=== PATIENT | male | born 1995 | race Caucasian/White ===

== ENCOUNTER 2016-08-13 13:36 | Observation (INO) | payer OTHER ==
[~2016-08-13] VITALS: Ht 170.2 cm; Wt 74.0 kg
[~2016-08-13 13:36] MED LIST: BISM262T3 PO
[2016-08-13] MEDS ORDERED: SODIUM CHLORIDE 0.9% 1000ML 1,000 ML IV STA ×3 (14:23→15:52)
[2016-08-13] MEDS ORDERED: PROCHLORPERAZINE 5 MG/ML 2 ML VIAL IV STA (14:34)
[2016-08-13] MEDS ORDERED: HYDROmorphone INJ 0.5 MG/0.5 ML SYR IV STA ×2 (14:34→21:32)
[2016-08-13] MEDS ORDERED: DiphenhydrAMINE HCL 50 MG/ML VIAL IV STA (14:34)
--- NOTE | 2016-08-13 14:35 | EMERGENCY ROOM VISIT NOTE ---
History Report prepared by Nazanin: Lewis High Under the Supervision of: Dr. Ricardo Gorman M.D. First contact with patient: 14:17 Chief Complaint: ILLNESS Stated Complaint: UPPER L QUAD PAIN,DIZZY History of Present Illness The patient is a 20 year old male who presents to the Emergency Room with complaints of worsening left upper quadrant abdominal pain beginning one day prior to arrival. He currently rates his discomfort as an 8/10 in severity. The patient associates dizziness with today's symptoms. He states the pain began last night around 8:30 PM and worsened this morning, when he was helping his father around the house. The patient notes he applied heat to his abdomen last night without relief. He states he has a history of a liver transplant as a child, and has experienced similar symptoms in the past with previous liver flare ups. The patient notes he saw Ajit Guerrero (Gastroenterology) two weeks ago, as a follow up appointment after being admitted two weeks prior for liver issues. He states his liver enzymes were a little elevated, and he had an ultrasound performed that revealed his hepatic artery or vein was not working properly or may be inflamed. The patient notes he also follows up with a back tufter for his hemoglobin. He states he has had a UTI this past month, and recently had his Garay removed three days ago. The patient notes he had a severe flare up two years ago, in which, he experienced jaundice and other symptoms. He states he has not missed any doses of his medication. Pt denies LOC , headache, fevers, chills, diaphoresis, visual changes, neck pain, chest pain, breathing difficulties, nausea, vomiting, back pain, melena, hematochezia, urinary symptoms, numbness, weakness, leg swelling, increased bruising, lymphadenopathy, rash, or other complaints. 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 Review of Systems See HPI for pertinent positives and negatives. A total of ten systems were reviewed and were otherwise negative. Past Medical & Surgical Medical Problems: (1) Acute liver failure (2) ADHD (attention deficit hyperactivity disorder) (3) Depression (4) GERD (gastroesophageal reflux disease) (5) History of biliary atresia (6) Liver Transplant Status (7) Polycythemia (8) Situs Inversus (9) Situs Inversus Surgical Problems: (1) Liver Transplant Status Family History No pertinent family history Social History Smoking Status: Former Smoker Alcohol Use: none Drug Use: none Marital Status: single Housing Status: lives with family Occupation Status: employed, student Current/Historical Medications Scheduled Clonazepam (Klonopin), 1 MG PO BID Hyoscyamine Sulfate (Levsin), 0.125 MG PO TID Tacrolimus (Prograf), 1 MG PO BID Scheduled PRN Amphetamine-Dextroamphetamine 30MG (Adderall 30MG), 30 MG PO DAILY PRN for Focus Bismuth Subsalicylate (Pepto Bismol Chew Tab), 1 TAB PO TID PRN for GI Upset Dicyclomine Hcl (Dicyclomine Hcl), 10 MG PO QID PRN for Abdominal Pain/Cramping Ibuprofen Tab (Advil), 200 MG PO UD PRN for Pain or Fever Triamcinolone Acet (Aristocort 0.1%), 1 APPLN TOP BID PRN for Itching Allergies Coded Allergies: Penicillins (Verified Allergy, Unknown, ., 07/28/16) Midazolam (Verified Adverse Reaction, Intermediate, "PARANOIA", 07/28/16) Acetaminophen (Unverified Adverse Reaction, Unknown, "AFFECTS MY LIVER", 07/28/16) Physical Exam Vital Signs Date Time Temp Pulse Resp B/P Pulse Ox O2 Delivery O2 Flow Rate FiO2 08/13/16 22:28 Room Air 08/13/16 21:15 83 18 112/63 96 Room Air 08/13/16 19:15 81 122/79 79 131/86 77 114/79 08/13/16 17:36 82 16 08/13/16 17:34 131/88 08/13/16 16:06 84 18 94 08/13/16 15:56 103 18 120/75 120 123/83 136 98/61 08/13/16 15:54 98/61 08/13/16 15:53 123/83 08/13/16 15:52 120/75 08/13/16 15:36 105 23 94 08/13/16 15:31 108 08/13/16 15:27 95 Room Air 08/13/16 15:12 134 18 129/82 95 Room Air 08/13/16 15:10 129/82 08/13/16 13:40 36.8 116 16 159/95 97 Room Air Physical Exam GENERAL: Awake, alert, well-appearing, in no distress HENT: Normocephalic, atraumatic. Oropharynx unremarkable. EYES: Normal conjunctiva. Sclera non-icteric. NECK: Supple. No nuchal rigidity. FROM. No JVD. RESPIRATORY: Clear to auscultation. CARDIAC: Regular rate, normal rhythm. Extremities warm and well perfused. Pulses equal. ABDOMEN: Soft, non-distended. Left upper quadrant tenderness to palpation. No rebound or guarding. No masses. RECTAL: Deferred. MUSCULOSKELETAL: Chest examination reveals no tenderness. The back is symmetrical on inspection without obvious abnormality. There is no CVA tenderness to palpation. No joint edema. LOWER EXTREMITIES: Calves are equal size bilaterally and non-tender. No edema. No discoloration. NEURO: Normal sensorium. No sensory or motor deficits noted. SKIN: No rash or jaundice noted. Medical Decision & Procedures ER Provider Diagnostic Interpretation: X ray results as stated below per my interpretation and radiologist interpretation. Other radiology results as stated below per my review and radiologist interpretation CHEST ONE VIEW PORTABLE CLINICAL HISTORY: Weakness COMPARISON STUDY: 07/28/2016 FINDINGS: There is dextrocardia. The gastric air bubble appears right-sided. There is a right-sided aortic arch. There is no focal pulmonary consolidation. There is no failure. There are no pleural effusions.[ IMPRESSION: Sinus inversus. No active disease in the chest. Electronically signed by: Rogerio Hughes M.D. 08/13/2016 2:54 PM DUPLEX PORTAL HEPATIC VEINS CLINICAL HISTORY: Situs inversus. History of arterial and venous stenosis. Left upper quadrant pain. Liver transplant COMPARISON STUDY: Hepatic ultrasound dated 07/26/2016 FINDINGS: The portal and hepatic veins are patent. There is normal directional flow. The splenic vein appears patent. There are no findings to indicate hepatic artery stenosis. IMPRESSION: 1. The portal and hepatic veins are patent with normal directional flow 2. No evidence of hepatic artery occlusion. Electronically signed by: Rogerio Hughes M.D. 08/13/2016 4:[address] ABD/PELVIS IV AND ORAL CONT CLINICAL HISTORY: Upper quadrant abdominal pain. Stasis. Elevated white count. History of liver transplant. COMPARISON STUDY: 07/23/2016 TECHNIQUE: Following the IV administration of 116 mL of Optiray-320, CT scan of the abdomen and pelvis was performed from the lung bases to the proximal femurs. Images are reviewed in the axial, sagittal, and coronal planes. IV contrast was administered without complication. CT DOSE: 301.42 mGy.cm FINDINGS: Lower chest: The heart is normal in size and configuration, without pericardial effusion. The lung bases and pleural spaces are clear. Liver: The liver is a left sided. There is situs inversus. No focal masses are visualized. There is trace pneumobilia. The hepatic veins appear patent. 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 Gallbladder: Not visualized Spleen: There are 2 right-sided spleens. No splenic masses are visualized Pancreas: No pancreatic masses are visualized. Adrenal glands: Unremarkable. Kidneys: There is symmetric renal cortical enhancement. The kidneys are normal in size without hydronephrosis. Bowel: There are no transition zones indicate bowel obstruction. There is no evidence of acute diverticulitis. There are no findings to indicate acute appendicitis. Peritoneum: There is no intraperitoneal free air or abdominal ascites. Vasculature: The abdominal aorta is normal in course and caliber. 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 Adenopathy: None. Pelvic viscera: The bladder, and pelvic viscera are unremarkable. Skeletal structures: No destructive osseous lesions are seen. 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 IMPRESSION: 1. Situs inversus 2. Stable appearance of the transplanted liver 3. No acute findings within the abdomen or pelvis Electronically signed by: Rogerio Hughes M.D. 08/13/2016 8:36 PM Laboratory Results 08/13/16 14:57 Red Blood Count 6.61, Mean Corpuscular Volume 80.2, Mean Corpuscular Hemoglobin 29.7, Mean Corpuscular Hemoglobin Concent 37.0, Mean Platelet Volume 10.3, Neutrophils (%) (Auto) 79.9, Lymphocytes (%) (Auto) 12.8, Monocytes (%) (Auto) 6.6, Eosinophils (%) (Auto) 0.4, Basophils (%) (Auto) 0.2, Neutrophils # (Auto) 10.74, Lymphocytes # (Auto) 1.72, Monocytes # (Auto) 0.89, Eosinophils # (Auto) 0.05, Basophils # (Auto) 0.03 08/13/16 14:57 Test 12/31/16 14:57 08/13/16 15:09 08/13/16 17:19 08/13/16 22:30 White Blood Count 13.45 K/uL (4.8-10.8) Red Blood Count 6.61 M/uL (4.7-6.1) Hemoglobin 19.6 g/dL (14.0-18.0) Hematocrit 53.0 % (42-52) Mean Corpuscular Volume 80.2 fL (80-100) Mean Corpuscular Hemoglobin 29.7 pg (25-34) Mean Corpuscular Hemoglobin Concent 37.0 g/dl (32-36) Platelet Count 213 K/uL (130-400) Mean Platelet Volume 10.3 fL (7.4-10.4) Neutrophils (%) (Auto) 79.9 % Lymphocytes (%) (Auto) 12.8 % Monocytes (%) (Auto) 6.6 % Eosinophils (%) (Auto) 0.4 % Basophils (%) (Auto) 0.2 % Neutrophils # (Auto) 10.74 K/uL (1.4-6.5) Lymphocytes # (Auto) 1.72 K/uL (1.2-3.4) Monocytes # (Auto) 0.89 K/uL (0.11-0.59) Eosinophils # (Auto) 0.05 K/uL (0-0.5) Basophils # (Auto) 0.03 K/uL (0-0.2) RDW Standard Deviation 38.4 fL (36.4-46.3) RDW Coefficient of Variation 13.4 % (11.5-14.5) Immature Granulocyte % (Auto) 0.1 % Immature Granulocyte # (Auto) 0.02 K/uL (0.00-0.02) Erythrocyte Sedimentation Rate 2 mm/hr (0-14) Prothrombin Time 11.0 SECONDS (9.0-12.0) Prothromb Time International Ratio 1.0 (0.9-1.1) Activated Partial Thromboplast Time 22.8 SECONDS (21.0-31.0) Partial Thromboplastin Ratio 0.9 Anion Gap 10.0 mmol/L (3-11) Est Creatinine Clear Calc Drug Dose 98.5 ml/min Estimated GFR () 109.9 Estimated GFR (Non- 94.8 BUN/Creatinine Ratio 13.1 (10-20) Calcium Level 9.3 mg/dl (8.5-10.1) Magnesium Level 1.9 mg/dl (1.8-2.4) Total Bilirubin 1.0 mg/dl (0.2-1) Direct Bilirubin 0.2 mg/dl (0-0.2) Aspartate Amino Transf (AST/SGOT) 27 U/L (15-37) Alanine Aminotransferase (ALT/SGPT) 41 U/L (12-78) Alkaline Phosphatase 104 U/L (45-117) C-Reactive Protein < 0.29 mg/dl (0-0.29) Total Protein 7.5 gm/dl (6.4-8.2) Albumin 4.5 gm/dl (3.4-5.0) Lipase 120 U/L (73-393) Thyroid Stimulating Hormone (TSH) 0.525 uIu/ml (0.300-4.500) Urine Color YELLOW Urine Appearance CLEAR (CLEAR) Urine pH 6.5 (4.5-7.5) Urine Specific [place] 1.001 (1.000-1.030) Urine Protein NEG (NEG) Urine Glucose (UA) NEG (NEG) Urine Ketones NEG (NEG) Urine Occult Blood NEG (NEG) Urine Nitrite NEG (NEG) Urine Bilirubin NEG (NEG) Urine Urobilinogen NEG (NEG) Urine Leukocyte Esterase NEG (NEG) Laboratory results reviewed by me Medications Administered Medications (Trade) Dose Ordered Sig/Timi Route Start Time Stop Time Status Last Admin Dose Admin Sodium Chloride 1,000 ml @ 125 mls/hr Q8H STAT IV 08/13/16 14:23 08/13/16 22:22 DC 08/13/16 14:23 125 MLS/HR Sodium Chloride (Nss 1000ml) 1,000 ml @ 999 mls/hr Q1H1M STAT IV 08/13/16 14:23 08/13/16 15:23 DC 08/13/16 14:23 999 MLS/HR Hydromorphone HCl (Dilaudid Inj) 0.5 mg NOW STAT IV 08/13/16 14:34 08/13/16 14:36 DC 08/13/16 15:08 0.5 MG Prochlorperazine Edisylate (Compazine Inj) 10 mg NOW STAT IV 08/13/16 14:34 08/13/16 14:36 DC 08/13/16 15:06 10 MG Diphenhydramine HCl 12.5 mg 12.5 mg NOW STAT IV 08/13/16 14:34 08/13/16 14:36 DC 08/13/16 15:06 12.5 MG Sodium Chloride (Nss 1000ml) 1,000 ml @ 999 mls/hr Q1H1M STAT IV 08/13/16 15:52 08/13/16 16:52 DC 08/13/16 15:00 999 MLS/HR Hydromorphone HCl 0.5 mg 0.5 mg NOW STAT IV 08/13/16 21:32 08/13/16 21:36 DC 08/13/16 22:34 0.5 MG Daptomycin 500 mg/ Sodium Chloride 60 ml @ 100 mls/hr NOW STAT IV 08/13/16 21:32 08/13/16 22:07 DC 08/13/16 22:35 100 MLS/HR Aztreonam/Dextrose (Azactam IV/D5 100ml) 110 ml @ 100 mls/hr NOW STAT IV 08/13/16 21:32 08/13/16 22:37 DC 08/13/16 22:35 100 MLS/HR ED Course 1419: The patient was evaluated in room C6. A complete history and physical exam was performed. 1423: Ordered Sodium Chloride 1,000 ml @ 999 mls/hr IV, Sodium Chloride 1,000 ml @ 125 mls/hr IV. 1434: Ordered Benadryl Inj 12.5 mg IV, Compazine Inj 10 mg IV, Dilaudid Inj 0.5 mg IV. 1543: I spoke to ZAIRE Gardner (Radiology) about the patient's case, and he recommends starting the imaging with an ultrasound. 1552: Ordered Sodium Chloride 1,000 ml @ 999 mls/hr IV. 1708: Reevaluated the patient at this time, and he is still experiencing some dizziness. He requested for additional pain medication. 7: I reviewed the imaging report with ZAIRE Gardner (Radiology). It is unchanged from prior. 2122: I spoke to Cralos Ji (Hepatology) about the patient's case, and he would like to rule out infection and sepsis so a culture and antibiotics is recommended. He agreed with Daptomycin and Aztreonam because of his penicillin allergy. He states there is nothing they would do differently right now, because his liver tests look excellent. He recommends admission here unless the hospitalist has issues with it. 2131: Ordered Aztreonam 2,000 mg/Dextrose 110 ml @ 100 mls/hr IV, Daptomycin 500 mg/Sodium Chloride 60 ml @ 100 mls/hr IV, Dilaudid Inj 0.5 mg IV. 2149: Reevaluated the patient at this time, and he is in agreement with the treatment plan. 2152: I spoke to Ajit Cao (Hospitalist) about the patient's case, and he will follow the patient for further evaluation. Medical Decision Triage Nursing notes reviewed. The patient's presentation and history were concerning for abdominal pain, dizziness and a history of liver transplant with him and his impression Etiologies such as transplant failure, metabolic, infection, hypo/hyperglycemia , electrolyte abnormalities, cardiac sources, intracerebral event, toxicologic, neurologic, as well as others were entertained. The patient was evaluated. He was tachycardic. He is given a dose of IV Dilaudid, Compazine, and Benadryl for symptom control. He was hydrated with 2 L normal saline. The patient was orthostatic. He had elevated white count of 13.4. His hemoglobin was slightly elevated as well. Coags, urinalysis, chest x -ray, LFTs, lipase, chemistries and TSH were otherwise unremarkable. The patient underwent ultrasound imaging which did not reveal any arterial or venous issues. CT imaging was performed due to the concerns for possible infection. This was unchanged. I did discuss both imaging findings with radiology. I consulted with hepatology at [facility]. It was recommended to cover him for possible sepsis due to his immunosuppression and have him admitted for observation to the hospital. Since his liver testing seems to be normal transfer was not recommended. I discussed initiation of broad-spectrum antibiotics with daptomycin aztreonam and hepatology agreed. CMV titers and blood cultures were ordered. Consultation was made with the [facility] hospitalist and the patient was evaluated for further management. The chart was completed utilizing [employer] voice recognition software. Grammatical errors, random word insertions, pronoun errors, and incomplete sentences are an occasional consequence of this system due to software limitations, ambient noise, and hardware issues. Any formal questions or concerns about the content, text, or information contained within the body of this dictation should be directly addressed to the physician for clarification. Consults Time Called: 2044 Consulting Physician: ZAIRE Gardner (Radiology) Returned Call: 2046: I spoke to ZAIRE Gardner (Radiology) about the patient's case, and he recommends starting the imaging with an ultrasound. 2046: I reviewed the imaging report with ZAIRE Gardner (Radiology). It is unchanged from prior. Additional Consults: Time Called: 2055 Consulted Physician: Carlos Ji (Hepatology) Returned Call: 2122 Additional Comments: I spoke to Carlos Ji (Hepatology) about the patient's case, and he would like to rule out infection and sepsis so a culture and antibiotics is recommended. He agreed with Daptomycin and Aztreonam because of his penicillin allergy. He states there is nothing they would do differently right now, because his liver tests look excellent. He recommends admission here unless the hospitalist has issues with it. Time Called: 2151 Consulted Physician: Ajit Cao (Hospitalist) Returned Call: 2152 Additional Comments: I spoke to Ajit Cao (Hospitalist) about the patient's case, and he will follow the patient for further evaluation. Impression Primary Impression: Leukocytosis Additional Impressions: Orthostasis, LUQ abdominal pain, Immunosuppression Scribe Attestation The scribe's documentation has been prepared under my direction and personally reviewed by me in its entirety. I confirm that the note above accurately reflects all work, treatment, procedures, and medical decision making performed by me. Departure Information Dispostion Being Evaluated By Hospitalist (Ajit Cao (Hospitalist)) Referrals Kerry Ferguson M.D. (PCP)
--- NOTE | 2016-08-13 14:56 | DIAGNOSTIC IMAGING REPORT ---
CHEST ONE VIEW PORTABLE CLINICAL HISTORY: Weakness COMPARISON STUDY: 07/28/2016 FINDINGS: There is dextrocardia. The gastric air bubble appears right-sided. There is a right-sided aortic arch. There is no focal pulmonary consolidation. There is no failure. There are no pleural effusions.[ IMPRESSION: Sinus inversus. No active disease in the chest. Electronically signed by: Rogerio Hughes M.D. 08/13/2016 2:54 PM
[2016-08-13 15:16] LABS: BASO % 0.2 %; BASO ABS # 0.03 K/uL (0-0.2); COMPLETE YES; EOS % 0.4 %; IG% 0.1 %; LYMPH % 12.8 %; LYMPH ABS # 1.72 K/uL (1.2-3.4); MEAN CELL VOLUME 80.2 fL (80-100); MEAN CORPUSCULAR HEMOGLOBIN 29.7 pg (25-34); MEAN PLATELET VOLUME 10.3 fL (7.4-10.4); MONO % 6.6 %; NEUT % 79.9 %; PLATELET COUNT 213 K/uL (130-400); RED BLOOD COUNT 6.61 M/uL (4.7-6.1); WHITE BLOOD COUNT 13.45 K/uL (4.8-10.8)
[2016-08-13 15:26] LABS: PARTIAL THROMBOPLASTIN RATIO 0.9
[2016-08-13 15:27] LABS: URINE APPEARANCE CLEAR (CLEAR); URINE BILIRUBIN NEG (NEG); URINE COLOR YELLOW; URINE NITRITE NEG (NEG); URINE PH 6.5 (4.5-7.5); URINE SPECIFIC GRAVITY 1.001 (1.000-1.030); UROBILINOGEN NEG (NEG)
[2016-08-13 15:28] LABS: MANUAL MICROSCOPIC REQUIRED? NO; REVIEW REQ? NO
[2016-08-13 15:33] LABS: ALT/SGPT 41 U/L (12-78); BLOOD UREA NITROGEN 14 mg/dl (7-18); BUN/CREATININE RATIO 13.1 (10-20); CALCIUM 9.3 mg/dl (8.5-10.1); CARBON DIOXIDE 26 mmol/L (21-32); CHLORIDE 106 mmol/L (98-107); GLUCOSE 92 mg/dl (70-99); MAGNESIUM 1.9 mg/dl (1.8-2.4); POTASSIUM 3.6 mmol/L (3.5-5.1); SODIUM 142 mmol/L (136-145)
[2016-08-13 15:42] LABS: ALKALINE PHOSPHATASE 104 U/L (45-117); AST/SGOT 27 U/L (15-37); C-REACTIVE PROTEIN < 0.29 mg/dl (0-0.29); THYROID STIMULATING HORMONE 0.525 uIu/ml (0.300-4.500)
--- NOTE | 2016-08-13 16:59 | DIAGNOSTIC IMAGING REPORT ---
DUPLEX PORTAL HEPATIC VEINS CLINICAL HISTORY: Situs inversus. History of arterial and venous stenosis. Left upper quadrant pain. Liver transplant COMPARISON STUDY: Hepatic ultrasound dated 07/26/2016 FINDINGS: The portal and hepatic veins are patent. There is normal directional flow. The splenic vein appears patent. There are no findings to indicate hepatic artery stenosis. IMPRESSION: 1. The portal and hepatic veins are patent with normal directional flow 2. No evidence of hepatic artery occlusion. Electronically signed by: Rogerio Hughes M.D. 08/13/2016 4:57 PM
[2016-08-13] MEDS ORDERED: OPTIRAY 320 IV PRN (19:30)
--- NOTE | 2016-08-13 20:38 | DIAGNOSTIC IMAGING REPORT ---
CT ABD/PELVIS IV AND ORAL CONT CLINICAL HISTORY: Upper quadrant abdominal pain. Stasis. Elevated white count. History of liver transplant. COMPARISON STUDY: 07/23/2016 TECHNIQUE: Following the IV administration of 116 mL of Optiray-320, CT scan of the abdomen and pelvis was performed from the lung bases to the proximal femurs. Images are reviewed in the axial, sagittal, and coronal planes. IV contrast was administered without complication. CT DOSE: 301.42 mGy.cm FINDINGS: Lower chest: The heart is normal in size and configuration, without pericardial effusion. The lung bases and pleural spaces are clear. Liver: The liver is a left sided. There is situs inversus. No focal masses are visualized. There is trace pneumobilia. The hepatic veins appear patent. 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 Gallbladder: Not visualized Spleen: There are 2 right-sided spleens. No splenic masses are visualized Pancreas: No pancreatic masses are visualized. Adrenal glands: Unremarkable. Kidneys: There is symmetric renal cortical enhancement. The kidneys are normal in size without hydronephrosis. Bowel: There are no transition zones indicate bowel obstruction. There is no evidence of acute diverticulitis. There are no findings to indicate acute appendicitis. Peritoneum: There is no intraperitoneal free air or abdominal ascites. Vasculature: The abdominal aorta is normal in course and caliber. 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 Adenopathy: None. Pelvic viscera: The bladder, and pelvic viscera are unremarkable. Skeletal structures: No destructive osseous lesions are seen. 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 IMPRESSION: 1. Situs inversus 2. Stable appearance of the transplanted liver 3. No acute findings within the abdomen or pelvis Electronically signed by: Rogerio Hughes M.D. 08/13/2016 8:36 PM
[2016-08-13] MEDS ORDERED: AZTREONAM IV 2,000 MG in DEXTROSE 5% 100ML 100 ML IV STA (21:32)
[2016-08-13] MEDS ORDERED: DAPTOmycin IV 500 MG in SODIUM CHLORIDE 0.9% 50ML 50 ML IV STA (21:32)
[2016-08-13 22:28] VITALS: Ht 170.2 cm; Wt 74.0 kg
[2016-08-13] MEDS ORDERED: HYOSCYAMINE SULFATE 0.125 MG SL TAB PO ONE (23:21)
[2016-08-13] MEDS ORDERED: CLONAZEPAM 1 MG TAB PO ONE (23:21)
[2016-08-13] MEDS ORDERED: TACROLIMUS 1 MG CAP PO ONE (23:21)
[2016-08-13 23:25] VITALS: O2SAT 98
[2016-08-13] MEDS ORDERED: DICYCLOMINE HCL 10 MG CAP PO PRN (23:30)
[2016-08-13] MEDS ORDERED: IBUPROFEN 200 MG TAB PO PRN (23:30)
[2016-08-13] MEDS ORDERED: IV FLUIDS COMPLETED PRN (23:30)
[2016-08-13] MEDS ORDERED: LACTATED RINGER'S 1000ML 1,000 ML IV ONE (23:30)
[2016-08-13] MEDS ORDERED: TRAMADOL HCL 50 MG TAB PO PRN (23:30)
[2016-08-13] MEDS ORDERED: BISMUTH SUBSALICYLATE 262 MG CHEW PO PRN (23:30)
[2016-08-13] MEDS ORDERED: ONDANSETRON INJ 2 MG/ML 2 ML VIAL IV PRN (23:30)
[2016-08-13 23:46] LABS: BASO % 0.2 %; BASO ABS # 0.02 K/uL (0-0.2); COMPLETE YES; HEMATOCRIT 46.1 % (42-52); IG% 0.2 %; LYMPH % 28.8 %; LYMPH ABS # 2.48 K/uL (1.2-3.4); MEAN CELL VOLUME 80.6 fL (80-100); MEAN CORPUSCULAR HEMOGLOBIN 29.9 pg (25-34); MEAN CORPUSCULAR HGB CONC 37.1 g/dl (32-36); MEAN PLATELET VOLUME 9.7 fL (7.4-10.4); MONO % 8.5 %; NEUT % 60.3 %; PLATELET COUNT 144 K/uL (130-400); RED BLOOD COUNT 5.72 M/uL (4.7-6.1); WHITE BLOOD COUNT 8.62 K/uL (4.8-10.8)
[2016-08-14 00:08] LABS: BUN/CREATININE RATIO 10.4 (10-20); CALCIUM 8.4 mg/dl (8.5-10.1); CREATININE 1.1 mg/dl (0.60-1.40); POTASSIUM 3.4 mmol/L (3.5-5.1)
[2016-08-14] MEDS: KETOROLAC TROMETHAMINE 30 MG/ML VIAL IV PRN ×2 (00:38→07:58)
[2016-08-14 07:31] VITALS: BP 110/73; PULSE 75; TEMP 36.7; O2SAT 97
[2016-08-14] MEDS: HYOSCYAMINE SULFATE 0.125 MG SL TAB PO SCH ×2 (07:57→13:34)
[2016-08-14] MEDS ORDERED: TACROLIMUS 1 MG CAP PO SCH (08:00)
[2016-08-14] MEDS ORDERED: CLONAZEPAM 1 MG TAB PO SCH (08:00)
--- NOTE | 2016-08-14 09:15 | HISTORY & PHYSICAL EXAMINATION ---
DATE OF ADMISSION: 08/13/2016 PRIMARY CARE PHYSICIAN: Dr. Ferguson. CHIEF COMPLAINT: Left upper quadrant pain. Hx obtained from px and records. 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 Patient has had chronic left side abdominal pain since rejection episode from 2 years ago. Pain is worse with exertion. Px thinks pain may be related to "blood vessel problems" in his left sided liver. His local clinical informatics director had deferred eval of this issue to [facility] Hepatology. Recent confinement at [facility] last about 2 weeks ago for urinary retention/UTI, Garay catheter subsequently removed outpatient as per px. Px also evaluated during recent confinement by GI hepatology for chronic L abd pain. Concern for narcotic seeking tendencies w/ multiple trips to the ED at [facility] despite multiple imaging studies being negative. Px seems to think that only narcotics will help his pain as per note. In the last few days, patient had worsening of achy chronic left upper quadrant pain. No nausea, no vomiting, no abnormal bowel movements. no fever, no chills. Patient seen at the Emergency Room. Noted to be orthostatic initially. Fluid bolus given in the ER. Given daptomycin and Azactam for possible sepsis after consultation with [facility] java development team lead, Dr. Ingram as per ER MD. MEDICAL HISTORY: As above. SURGERIES: Liver transplant, skin biopsy. HOME MEDICATIONS: Adderall, Pepto, Klonopin, dicyclomine, Levsin, Advil, Aristocort, Prograf. ALLERGIES: TYLENOL, PENICILLIN. Midazolam FAMILY HISTORY: Could not obtain as the patient is adopted. PERSONAL AND SOCIAL HISTORY: Past tobacco abuse. 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 REVIEW OF SYSTEMS: As per HPI, all other ROS negative PHYSICAL EXAMINATION: VITAL SIGNS: Blood pressure was noted to be 159/98, later 116, later 84, pulse rate 80, RR 16, temperature 36.8, sats 96 on room air. Orthostatic initially abnormal, later negative after IVF. GENERAL: Noted to be slightly anxious, no respiratory distress. SKIN : normal color HEENT: [place] palpebral conjunctivae. Dry mucosa. NECK: No JVD. Supple. CHEST: Clear to auscultation. ABDOMEN: subcostal incisional scar, exquisite left upper quadrant tenderness. EXTREMITIES: No edema. No tenderness. NEUROLOGIC: No gross focality. LABS: Hemoglobin was noted to be 19.6, white cell count is 13, platelets 213. Sodium 140, K 3.8 creatinine 1.1, glucose 100. LFTs normal. CT abdomen and pelvis essentially normal. UA normal ASSESSMENT: 1. Acute on chronic L abdominal pain history of biliary atresia secondary to cirrhosis status post liver transplantation poss narcotic seeking behavior as per records. ro sepsis 2. orthostasis, mild clinical dehydration 3. hx situs inversus 4. past tobacco abuse PLAN: Observation GMF judicious narcotic use. IVF ff CS, hold off on additional antibiotics for now. (No overt bacterial source of sepsis) Home in 24 hours if patient comfortable and afebrile DVT prophylaxis, SCDs. Full code. MTDD
--- NOTE | 2016-08-14 13:49 | Discharge Instructions ---
Discharge Instructions Admission Reason for Admission: Abdominal Pain Discharge Discharge Diagnosis / Problem: ABDOMINAL PAIN Discharge Goals Goal(s): Improve disease control, Diagnostic testing Activity Recommendations Activity Limitations: resume your previous activity . Instructions / Follow-Up Instructions / Follow-Up HOSPITAL FOLLOW UP WITH DR LYNCH IN A WEEK , OFFICE WILL CALL WITH APPOINTMENT Current Hospital Diet Patient's current hospital diet: Regular Diet Discharge Diet Recommended Diet: Clear Liquid Diet Pending Studies Studies pending at discharge: no Medical Emergencies . Who to Call and When: Medical Emergencies: If at any time you feel your situation is an emergency, please call 911 immediately. . Non-Emergent Contact Non-Emergency issues call your: Primary Care Provider . . "Provider Documentation" section prepared by Tara Gonzales. VTE Core Measure Inpt VTE Proph given/why not?: Hector Emmanuel, SCD's
[2016-08-14 14:20] VITALS: BP 110/73; PULSE 75; TEMP 36.7; O2SAT 97
--- NOTE | 2016-08-14 20:57 | Discharge Summary ---
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 Situs inversus 2. Stable appearance of the transplanted liver 3. No acute findings within the abdomen or pelvis IMPRESSION: 1. The portal and hepatic veins are patent with normal directional flow 2. No evidence of hepatic artery occlusion. Medication Reconciliation Continued Medications: Amphetamine-Dextroamphetamine 30MG (Adderall 30MG) 1 Tab Tab 30 MG PO DAILY PRN for Focus, TAB Bismuth Subsalicylate (Pepto Bismol Chew Tab) 262 Mg Tab 1 TAB PO TID PRN for GI Upset, TAB Clonazepam (Klonopin) 1 Mg Tab 1 MG PO BID, TAB Dicyclomine Hcl (Dicyclomine Hcl) 10 Mg Cap 10 MG PO QID PRN for Abdominal Pain/Cramping Hyoscyamine Sulfate (Levsin) 0.125 Mg Tab 0.125 MG PO TID, #90 Ibuprofen Tab (Advil) 200 Mg Tab 200 MG PO UD PRN for Pain or Fever, TAB TAKE PER PACKAGE DIRECTIONS Tacrolimus (Prograf) 1 Mg Cap 1 MG PO BID, CAP Triamcinolone Acet (Aristocort 0.1%) 90 Appln/30 Gm Cr 1 APPLN TOP BID PRN for Itching APPLY TOPICALLY TO AFFECTED AREA DIRECTED Admission Information HPI (per Admitting provider): DATE OF ADMISSION: 08/13/2016 PRIMARY CARE PHYSICIAN: Dr. Ferguson. CHIEF COMPLAINT: Left upper quadrant pain. Hx obtained from px and records. 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 Patient has had chronic left side abdominal pain since rejection episode from 2 years ago. Pain is worse with exertion. Px thinks pain may be related to "blood vessel problems" in his left sided liver. 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 Recent confinement at [facility] last about 2 weeks ago for urinary retention/UTI, Garay catheter subsequently removed outpatient as per px. Px also evaluated during recent confinement by GI hepatology for chronic L abd pain. Concern for narcotic seeking tendencies w/ multiple trips to the ED at [facility] despite multiple imaging studies being negative. Px seems to think that only narcotics will help his pain as per note. In the last few days, patient had worsening of achy chronic left upper quadrant pain. No nausea, no vomiting, no abnormal bowel movements. no fever, no chills. Patient seen at the Emergency Room. Noted to be orthostatic initially. Fluid bolus given in the ER. Given daptomycin and Azactam for possible sepsis after consultation with [facility] dredge deckhand, Dr. Ingram as per ER MD. MEDICAL HISTORY: As above. SURGERIES: Liver transplant, skin biopsy. HOME MEDICATIONS: Adderall, Pepto, Klonopin, dicyclomine, Levsin, Advil, Aristocort, Prograf. ALLERGIES: TYLENOL, PENICILLIN. Midazolam FAMILY HISTORY: Could not obtain as the patient is adopted. PERSONAL AND SOCIAL HISTORY: Past tobacco abuse. 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 Physical Exam (per Admitting): REVIEW OF SYSTEMS: As per HPI, all other ROS negative PHYSICAL EXAMINATION: VITAL SIGNS: Blood pressure was noted to be 159/98, later 116, later 84, pulse rate 80, RR 16, temperature 36.8, sats 96 on room air. Orthostatic initially abnormal, later negative after IVF. GENERAL: Noted to be slightly anxious, no respiratory distress. SKIN : normal color HEENT: [place] palpebral conjunctivae. Dry mucosa. NECK: No JVD. Supple. CHEST: Clear to auscultation. ABDOMEN: subcostal incisional scar, exquisite left upper quadrant tenderness. EXTREMITIES: No edema. No tenderness. NEUROLOGIC: No gross focality. 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 gall bladder USG -was unremarkable P/E: GENERAL: young male, no sign of distress SKIN : normal color HEENT: [place] palpebral conjunctivae. sclera non icteric, PERRLA/EOMI , moist oral mucosa NECK: No JVD. Supple.no thyromegaly , trachea midline CHEST: Clear to auscultation., no wheeze or rales ABDOMEN: subcostal incisional scar, non tender , soft , normal bowel sound . EXTREMITIES: No edema. No tenderness. NEUROLOGIC: No gross focality. Acute on chronic L abdominal pain symptom has resolved no pain or discomfort no nausea , tolerating diet well history of biliary atresia secondary to cirrhosis status post liver transplantation CT abdomen /Pelvis /Liver USG -un remarkable stable to be discharge home will be followed with Family physician in a week DEHYDRATION ; resolved with IV hydration labs -wnl no evidence of infection tolerating diet well back to baseline FULL CODE DVT PROPHYLAXIS: Low risk SCD and teds ambulate DISPOSITION: discharge home today Discharge Instructions DI: Medical v4 Discharge Instructions Admission Reason for Admission: Abdominal Pain Discharge Discharge Diagnosis / Problem: ABDOMINAL PAIN Discharge Goals Goal(s): Improve disease control, Diagnostic testing Activity Recommendations Activity Limitations: resume your previous activity . Instructions / Follow-Up Instructions / Follow-Up HOSPITAL FOLLOW UP WITH DR FERGUSON IN A WEEK , OFFICE WILL CALL WITH APPOINTMENT Current Hospital Diet Patient's current hospital diet: Regular Diet Discharge Diet Recommended Diet: Clear Liquid Diet Pending Studies Studies pending at discharge: no Medical Emergencies . Who to Call and When: Medical Emergencies: If at any time you feel your situation is an emergency, please call 911 immediately. . Non-Emergent Contact Non-Emergency issues call your: Primary Care Provider . . "Provider Documentation" section prepared by Tara Gonzales. VTE Core Measure Inpt VTE Proph given/why not?: Hector Emmanuel, SCD's
[2016-08-17 17:34] LABS: CMV DNA PCR QUANT SOURCE Plasma; CMV DNA QN REAL TIME PCR <200 IU/mL (<200)
[2016-08-19 13:28] LABS: FK506 TACROLIMUS HIGHLY SENS NEGATIVE <1 MCG/L (5-20)
[2016-09-19] MEDS ORDERED: CLON1TAB3 PO (04:06)
[2017-06-10] MEDS ORDERED: TACR1CAP PO (00:26)
[2017-06-10] MEDS ORDERED: PPTBS PO (07:16)
[2017-06-10] MEDS ORDERED: TRMCR130WC TOP (20:48)
[2017-06-10] MEDS ORDERED: IBUP-103 PO (20:50)
[2017-06-12] MEDS ORDERED: ASPEC81 PO (10:39)
[2017-06-12] MEDS ORDERED: KETO10TA PO (10:39)
== END 2016-08-14 14:45 | disposition home or self-care (01) ==
LOC: ENRESERVDT → ENRESERVTM → C.EDB 13:37 → C.MS4W 23:06
PROVIDERS: ADMIT Internal Medicine; ATTEND Hospitalist
DX: R10.12 Left upper quadrant pain (principal); E86.0 Dehydration; G89.29 Other chronic pain; Q89.3 Situs inversus; Z94.4 Liver transplant status; Z79.899 Other long term (current) drug therapy; Z87.891 Personal history of nicotine dependence

== ENCOUNTER 2016-08-19 13:58 | Emergency (ER) | payer OTHER ==
[~2016-08-19] VITALS: Ht 167.6 cm; Wt 76.2 kg
[2016-08-19 14:03] VITALS: TEMP 36.7; Ht 167.6 cm; Wt 76.2 kg
[2016-08-19] MEDS ORDERED: SODIUM CHLORIDE 0.9% 1000ML 1,000 ML IV STA (14:17)
[2016-08-19 15:12] LABS: BASO % 0.3 %; BASO ABS # 0.03 K/uL (0-0.2); COMPLETE YES; EOS % 2.3 %; HEMATOCRIT 49.6 % (42-52); IG% 0.3 %; LYMPH % 20.9 %; LYMPH ABS # 1.92 K/uL (1.2-3.4); MEAN CELL VOLUME 80.3 fL (80-100); MEAN CORPUSCULAR HEMOGLOBIN 29.9 pg (25-34); MEAN CORPUSCULAR HGB CONC 37.3 g/dl (32-36); MEAN PLATELET VOLUME 10.3 fL (7.4-10.4); NEUT % 68.2 %; PLATELET COUNT 167 K/uL (130-400); RED BLOOD COUNT 6.18 M/uL (4.7-6.1)
[2016-08-19 15:35] LABS: BUN/CREATININE RATIO 13.6 (10-20); CALCIUM 8.9 mg/dl (8.5-10.1); CREATININE 1.4 mg/dl (0.60-1.40); POTASSIUM 3.7 mmol/L (3.5-5.1)
--- NOTE | 2016-08-19 15:44 | DIAGNOSTIC IMAGING REPORT ---
PA CHEST WITH ABDOMINAL SERIES CLINICAL HISTORY: Generalized abdominal pain. FINDINGS: A PA chest radiograph is compared to study dated 08/13/2016. Situs inversus is noted. The cardiomediastinal silhouette is unremarkable. The lungs and pleural spaces are clear. No pneumothorax is seen. The bony thorax is grossly intact. Supine and erect abdominal radiographs are correlated with abdominal CT dated 08/13/2016. There is a nonobstructed abdominal bowel gas pattern. The gastric bubble is located on the right and the liver is located on the left consistent with situs inversus. No intraperitoneal free air is seen. There is moderate colonic fecal retention. No abnormal abdominal calcifications are identified. The lumbosacral spine and bony pelvis appear intact. IMPRESSION: 1. No acute cardiopulmonary abnormality. 2. Nonobstructed abdominal bowel gas pattern noting moderate colonic fecal retention. 3. 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 Electronically signed by: Ricki Zafar M.D. 08/19/2016 3:42 PM Dictated Date/Time: 08/19/2016 3:39 PM
[2016-08-19 16:12] VITALS: BP 119/82; PULSE 82; O2SAT 97
[2016-08-19 16:24] LABS: URINE APPEARANCE CLEAR (CLEAR); URINE BILIRUBIN NEG (NEG); URINE COLOR YELLOW; URINE NITRITE NEG (NEG); URINE SPECIFIC GRAVITY 1.016 (1.000-1.030); UROBILINOGEN NEG (NEG); ZZUR CULT IF INDIC CLEAN CATCH NO
[2016-08-19 16:27] LABS: MANUAL MICROSCOPIC REQUIRED? NO; REVIEW REQ? NO
--- NOTE | 2016-08-19 17:21 | DIAGNOSTIC IMAGING REPORT ---
ABDOMINAL ULTRASOUND, RIGHT UPPER QUADRANT HISTORY: Left upper quadrant pain. Liver transplant. Situs inversus. COMPARISON: CT of the abdomen and pelvis August 13, 2016 and upper ultrasound August 13, 2016. FINDINGS: Sinusitis inversus is again noted. The transplanted liver is unremarkable by sonography. The main portal vein is patent with appropriately directed flow. No hepatic lesions are identified. No gallbladder is present. The common bile duct is not well-visualized. There is no intrahepatic bile biliary ductal dilatation. There is no right hydronephrosis. The pancreatic body is normal. The head and tail are slightly obscured. IMPRESSION: 1. Unremarkable sonographic appearance of the transplanted liver. 2. No intrahepatic biliary ductal dilatation. Electronically signed by: Byron Nicole M.D. 08/19/2016 5:19 PM Dictated Date/Time: 08/19/2016 4:16 PM
--- NOTE | 2016-08-19 22:44 | EMERGENCY ROOM VISIT NOTE ---
History Report prepared by Nazanin: Sobia Aaron Under the Supervision of: Dr. Ricardo Gorman M.D. First contact with patient: 14:12 Chief Complaint: REFERRED BY DOCTOR Stated Complaint: LIVER PAIN - REF BY History of Present Illness The patient is a 20 year old male who presents to the Emergency Room with complaints of gradually worsening left upper quadrant abdominal pain since yesterday. He describes the pain as sharp and twisting. He also complains of weakness that developed throughout the day today. The patient has a history of a liver transplant and presented to the emergency room with very similar symptoms about a week ago and was hospitalized at that time. The patient has followed up with gastroenterology and urology for his abdominal pain as well as urinary retention issues 3 weeks ago. The patient states that some of the blood vessels that lead into his liver "aren't right" when compared to previous imaging and he is under the impression that this could be causing his pain. The patient has an appointment scheduled with [facility] hospice volunteer coordinator team in 3 days. He states that he called Dr. Ferguson's office (PCP), and spoke with a nurse today asking to have a workup. About 40 minutes ago, he received a return call and was referred to the emergency room. He has had consultation with pain management but is not currently on a pain management plan. He has been on Neurontin in the past which has not worked. Pt denies LOC, headache, fevers, chills, diaphoresis, visual changes, neck pain, chest pain, breathing difficulties, nausea, vomiting, back pain, melena, hematochezia, urinary symptoms, numbness, lymphadenopathy, rash, or other complaints. Source of History: patient Onset: yesterday Position: abdomen (LUQ) Quality: sharp, other (twisting) Timing: worsening Associated Symptoms: + weakness Review of Systems See HPI for pertinent positives and negatives. A total of ten systems were reviewed and were otherwise negative. Past Medical & Surgical Medical Problems: (1) Acute liver failure (2) ADHD (attention deficit hyperactivity disorder) (3) Depression (4) GERD (gastroesophageal reflux disease) (5) History of biliary atresia (6) Liver Transplant Status (7) Polycythemia (8) Situs Inversus (9) Situs Inversus Surgical Problems: (1) Liver Transplant Status Family History No pertinent family history Social History Smoking Status: Never Smoker Alcohol Use: none Drug Use: none Marital Status: single Housing Status: lives with family Occupation Status: employed, student Current/Historical Medications Scheduled Clonazepam (Klonopin), 1 MG PO BID Hyoscyamine Sulfate (Levsin), 0.125 MG PO TID Tacrolimus (Prograf), 1 MG PO BID Scheduled PRN Amphetamine-Dextroamphetamine 30MG (Adderall 30MG), 30 MG PO DAILY PRN for Focus Bismuth Subsalicylate (Pepto Bismol Chew Tab), 1 TAB PO TID PRN for GI Upset Dicyclomine Hcl (Dicyclomine Hcl), 10 MG PO QID PRN for Abdominal Pain/Cramping Ibuprofen Tab (Advil), 200 MG PO UD PRN for Pain or Fever Triamcinolone Acet (Aristocort 0.1%), 1 APPLN TOP BID PRN for Itching Allergies Coded Allergies: Penicillins (Verified Allergy, Unknown, ., 07/28/16) Midazolam (Verified Adverse Reaction, Intermediate, "PARANOIA", 07/28/16) Acetaminophen (Unverified Adverse Reaction, Unknown, "AFFECTS MY LIVER", 07/28/16) Physical Exam Vital Signs Date Time Temp Pulse Resp B/P Pulse Ox O2 Delivery O2 Flow Rate FiO2 08/19/16 16:12 82 18 119/82 97 Room Air 08/19/16 15:20 81 08/19/16 14:03 36.7 90 18 145/85 96 Room Air Physical Exam GENERAL: Awake, alert, well-appearing, in no distress HENT: Normocephalic, atraumatic. Oropharynx unremarkable. EYES: Normal conjunctiva. Sclera non-icteric. NECK: Supple. No nuchal rigidity. FROM. No JVD. RESPIRATORY: Clear to auscultation. CARDIAC: Regular rate, normal rhythm. Extremities warm and well perfused. Pulses equal. ABDOMEN: Soft, non-distended. No tenderness to palpation or percussion. No rebound or guarding. No masses. RECTAL: Deferred. MUSCULOSKELETAL: Chest examination reveals left low anterior costal margin tenderness. The back is symmetrical on inspection without obvious abnormality. There is no CVA tenderness to palpation. No joint edema. LOWER EXTREMITIES: Calves are equal size bilaterally and non-tender. No edema. No discoloration. NEURO: Normal sensorium. No sensory or motor deficits noted. SKIN: No rash or jaundice noted. Medical Decision & Procedures ER Provider Diagnostic Interpretation: X ray results as stated below per my interpretation and radiologist interpretation. Other radiology results as stated below per my review and radiologist interpretation PA CHEST WITH ABDOMINAL SERIES CLINICAL HISTORY: Generalized abdominal pain. FINDINGS: A PA chest radiograph is compared to study dated 08/13/2016. Situs inversus is noted. The cardiomediastinal silhouette is unremarkable. The lungs and pleural spaces are clear. No pneumothorax is seen. The bony thorax is grossly intact. Supine and erect abdominal radiographs are correlated with abdominal CT dated 08/13/2016. There is a nonobstructed abdominal bowel gas pattern. The gastric bubble is located on the right and the liver is located on the left consistent with situs inversus. No intraperitoneal free air is seen. There is moderate colonic fecal retention. No abnormal abdominal calcifications are identified. The lumbosacral spine and bony pelvis appear intact. IMPRESSION: 1. No acute cardiopulmonary abnormality. 2. Nonobstructed abdominal bowel gas pattern noting moderate colonic fecal retention. 3. 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 Electronically signed by: Ricki Zafar M.D. 08/19/2016 3:42 PM Dictated Date/Time: 08/19/2016 3:39 PM ABDOMINAL ULTRASOUND, RIGHT UPPER QUADRANT: HISTORY: Left upper quadrant pain. Liver transplant. Situs inversus. COMPARISON: CT of the abdomen and pelvis August 13, 2016 and upper ultrasound August 13, 2016. FINDINGS: Situs inversus is again noted. The transplanted liver is unremarkable by sonography. The main portal vein is patent with appropriately directed flow. No hepatic lesions are identified. No gallbladder is present. The common bile duct is not well-visualized. There is no intrahepatic bile biliary ductal dilation. There is no right hydronephrosis. The pancreatic body is normal. The head and tail are slightly obscured. IMPRESSION: 1. Unremarkable sonographic appearance of transplanted liver. 2. No intrahepatic biliary ductal dilation. Laboratory Results 08/19/16 14:50 Red Blood Count 6.18, Mean Corpuscular Volume 80.3, Mean Corpuscular Hemoglobin 29.9, Mean Corpuscular Hemoglobin Concent 37.3, Mean Platelet Volume 10.3, Neutrophils (%) (Auto) 68.2, Lymphocytes (%) (Auto) 20.9, Monocytes (%) (Auto) 8.0, Eosinophils (%) (Auto) 2.3, Basophils (%) (Auto) 0.3, Neutrophils # (Auto) 6.27, Lymphocytes # (Auto) 1.92, Monocytes # (Auto) 0.74, Eosinophils # (Auto) 0.21, Basophils # (Auto) 0.03 08/19/16 14:50 Test 08/19/16 14:45 08/19/16 14:50 Urine Color YELLOW Urine Appearance CLEAR (CLEAR) Urine pH 6.0 (4.5-7.5) Urine Specific [place] 1.016 (1.000-1.030) Urine Protein NEG (NEG) Urine Glucose (UA) NEG (NEG) Urine Ketones NEG (NEG) Urine Occult Blood NEG (NEG) Urine Nitrite NEG (NEG) Urine Bilirubin NEG (NEG) Urine Urobilinogen NEG (NEG) Urine Leukocyte Esterase NEG (NEG) White Blood Count 9.20 K/uL (4.8-10.8) Red Blood Count 6.18 M/uL (4.7-6.1) Hemoglobin 18.5 g/dL (14.0-18.0) Hematocrit 49.6 % (42-52) Mean Corpuscular Volume 80.3 fL (80-100) Mean Corpuscular Hemoglobin 29.9 pg (25-34) Mean Corpuscular Hemoglobin Concent 37.3 g/dl (32-36) Platelet Count 167 K/uL (130-400) Mean Platelet Volume 10.3 fL (7.4-10.4) Neutrophils (%) (Auto) 68.2 % Lymphocytes (%) (Auto) 20.9 % Monocytes (%) (Auto) 8.0 % Eosinophils (%) (Auto) 2.3 % Basophils (%) (Auto) 0.3 % Neutrophils # (Auto) 6.27 K/uL (1.4-6.5) Lymphocytes # (Auto) 1.92 K/uL (1.2-3.4) Monocytes # (Auto) 0.74 K/uL (0.11-0.59) Eosinophils # (Auto) 0.21 K/uL (0-0.5) Basophils # (Auto) 0.03 K/uL (0-0.2) RDW Standard Deviation 39.0 fL (36.4-46.3) RDW Coefficient of Variation 13.4 % (11.5-14.5) Immature Granulocyte % (Auto) 0.3 % Immature Granulocyte # (Auto) 0.03 K/uL (0.00-0.02) Anion Gap 10.0 mmol/L (3-11) Est Creatinine Clear Calc Drug Dose 74.6 ml/min Estimated GFR () 82.1 Estimated GFR (Non- 70.8 BUN/Creatinine Ratio 13.6 (10-20) Calcium Level 8.9 mg/dl (8.5-10.1) Total Bilirubin 0.7 mg/dl (0.2-1) Direct Bilirubin 0.2 mg/dl (0-0.2) Aspartate Amino Transf (AST/SGOT) 24 U/L (15-37) Alanine Aminotransferase (ALT/SGPT) 31 U/L (12-78) Alkaline Phosphatase 92 U/L (45-117) Total Protein 7.2 gm/dl (6.4-8.2) Albumin 4.3 gm/dl (3.4-5.0) Lipase 114 U/L (73-393) Laboratory results reviewed by me Medications Administered Medications (Trade) Dose Ordered Sig/Timi Route Start Time Stop Time Status Last Admin Dose Admin Sodium Chloride (Nss 1000ml) 1,000 ml @ 999 mls/hr Q1H1M STAT IV 08/19/16 14:17 08/19/16 15:17 DC 08/19/16 14:17 999 MLS/HR ED Course 1416: The patient was evaluated in room B2. A complete history and physical exam was performed. I had a 30 minute detailed conversation with the patient regarding his case. 1417: Ordered NSS 1000 ml @ 999 mls/hr IV. 1622: I reassessed the patient and updated him on results so far. 1659: I updated the patient. 1707: I reevaluated the patient. Discussed results and discharge instructions: He verbalized understanding and agreement. He was provided with a disc with imaging results from today and his lab results. The patient is ready for discharge. Medical Decision Triage Nursing notes reviewed. The patient's presentation and history were concerning for left upper quadrant pain and history of liver transplantation. Etiologies such as complication of transplantation, exacerbation of chronic abdominal pain, constipation, costochondritis, appendicitis, diverticulitis, obstruction, inflammatory bowel disease, renal colic, PUD, biliary pathology, pancreatitis, mesenteric ischemia, aortic pathology, infections, genitourinary, UTI, perforated viscus, as well as others were entertained. The patient was evaluated. I have seen the patient multiple times and has been here numerous times over the last 4 weeks. The patient did not have any tenderness within his abdomen. He had reproducible tenderness over the left costal margin raising the concern for costochondritis. The patient was frustrated as he has had this problem and has not had good direction on what to do about it. Patient has had numerous notes in his chart about narcotic seeking behavior. There is concern for this. His last admission did not show any significant abnormalities in his imaging and his leukocytosis resolved spontaneously. He has a pending appointment on Monday, 3 days from now with transplantation. The patient was requesting pain medicine and stated he cannot have Tylenol and Toradol did not work for him. I did discuss the fact that he would not receive IV narcotics due to my concern for addiction and side effects such as constipation. The patient was agreeable to diagnostic testing. His CBC , chemistry panel and LFTs and urinalysis were normal. The patient had a normal abdominal series except he did have moderate stool present. Ultrasound of the left upper quadrant did not reveal any abnormalities with his transplanted liver and situs the patient inversus. I had a long discussion with the patient about his need for consistent follow-up with specialist at [place] and he is going to pursue this. The patient was also educated on her concerns about his requesting pain medication. I do not doubt that he has pain but treatment with IV narcotics on a recurrent basis is going to lead to serious issues such as addiction or dependence. I gave my usual and customary discussion regarding this issue. After a long discussion with the patient he indicated his understanding with the reasoning and was actually satisfied with the treatment plan. He was pleased with the treatment and thankful for the time spent. By the evaluation outlined above other emergent etiologies such as those listed in the differential, as well as others, were deemed relatively unlikely. The patient was informed about the findings as listed above. All questions were answered and he was pleased with the treatment. Return instructions were outlined and the patient was discharged in stable condition. The patient was referred to his transplant team on Monday for follow-up for a recheck of the current condition. The chart was completed utilizing [employer] Speech voice recognition software. Grammatical errors, random word insertions, pronoun errors, and incomplete sentences are an occasional consequence of this system due to software limitations, ambient noise, and hardware issues. Any formal questions or concerns about the content, text, or information contained within the body of this dictation should be directly addressed to the physician for clarification. Impression Primary Impression: Left upper quadrant pain Additional Impression: Costal margin pain Scribe Attestation The scribe's documentation has been prepared under my direction and personally reviewed by me in its entirety. I confirm that the note above accurately reflects all work, treatment, procedures, and medical decision making performed by me. Departure Information Dispostion Home / Self-Care Referrals Kerry Ferguson M.D. (PCP) Patient Instructions A Signature Page, My [facility] Additional Instructions LEFT UPPER QUADRANT/ COSTAL MARGIN PAIN INSTRUCTIONS: Ibuprofen(Motrin, Advil) may be used for fever or pain. Use 600mg every six hours only as needed. Take with food. Avoid using more than 1200mg in a 24 hour period. Do not use for more than three consecutive days without your transplant physician direction. Prolonged inappropriate use can lead to stomach upset or ulcers. The medicine also may interact with your current prescriptions. Rest and drink plenty of fluids as tolerated. Slow sips of water or sports drinks are recommended instead of large amounts all at once. Take all of your imaging and blood work with you for the Monday appointment. Continue current medications. Return to the ER immediately for worsening or persistent abdominal pain, vomiting, fevers, chest pains, difficulty breathing, black or bloody stools, worsening of your condition, or as needed. Follow up with your transplant team on Monday for a recheck of your current condition.
[2016-09-19] MEDS ORDERED: TACR1CAP PO (00:26)
[2016-09-19] MEDS ORDERED: CLON1TAB3 PO (04:06)
== END 2016-08-19 17:50 | disposition home or self-care (01) ==
LOC: C.EDB 14:00
DX: R10.12 Left upper quadrant pain (principal); K59.00 Constipation, unspecified; Z94.4 Liver transplant status; R53.1 Weakness; F90.9 Attention-deficit hyperactivity disorder, unspecified type; Z79.899 Other long term (current) drug therapy

== ENCOUNTER 2016-09-17 01:07 | Emergency (ER) | payer OTHER ==
[~2016-09-17] VITALS: Ht 175.3 cm; Wt 80.0 kg
[2016-09-17 01:21] VITALS: TEMP 36.6; Ht 175.3 cm; Wt 80.0 kg
--- NOTE | 2016-09-17 01:45 | EMERGENCY ROOM VISIT NOTE ---
History Report prepared by Nazanin: Natalia Boo Under the Supervision of: Dr. Ronny Lisa M.D. First contact with patient: 01:35 Chief Complaint: ALCOHOL OVERDOSE Stated Complaint: ALCOHOL Nursing Triage Summary: patient was at [employer] with friends and drank two beers and reports that his friend " kept feeding me drinks". patient states he normally does not drink and called EMS because he was nauseated and has a hx of liver transplant as a child. 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 The patient was at [facility] with friends and was drinking alcohol. He started to feel sick and nauseated so he called his friend to come and pick him up. Friend states that the patient decided to call an ambulance before he arrived. The patient has a history of a liver transplant. 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 A total of 10 systems reviewed and were otherwise negative. Past Medical & Surgical Medical Problems: (1) Acute liver failure (2) ADHD (attention deficit hyperactivity disorder) (3) Depression (4) GERD (gastroesophageal reflux disease) (5) History of biliary atresia (6) Liver Transplant Status (7) Polycythemia (8) Situs Inversus (9) Situs Inversus Surgical Problems: (1) Liver Transplant Status Family History No pertinent family history Social History Smoking Status: Never Smoker Alcohol Use: occasionally Drug Use: none Marital Status: single Housing Status: lives with family Occupation Status: employed, student Current/Historical Medications Scheduled Clonazepam (Klonopin), 1 MG PO BID Hyoscyamine Sulfate (Levsin), 0.125 MG PO TID Tacrolimus (Prograf), 2 MG PO BID Scheduled PRN Amphetamine-Dextroamphetamine 30MG (Adderall 30MG), 30 MG PO DAILY PRN for Focus Dicyclomine Hcl (Dicyclomine Hcl), 10 MG PO QID PRN for Abdominal Pain/Cramping Ibuprofen Tab (Advil), 200 MG PO UD PRN for Pain or Fever Triamcinolone Acet (Aristocort 0.1%), 1 APPLN TOP BID PRN for Itching [Pepto Bismol], 15 ML PO Q6H PRN for INDIGESTION Allergies Coded Allergies: Penicillins (Verified Allergy, Unknown, ., 07/28/16) Midazolam (Verified Adverse Reaction, Intermediate, "PARANOIA", 07/28/16) Acetaminophen (Unverified Adverse Reaction, Unknown, "AFFECTS MY LIVER", 07/28/16) Physical Exam Vital Signs Date Time Temp Pulse Resp B/P Pulse Ox O2 Delivery O2 Flow Rate FiO2 09/17/16 03:00 84 18 106/76 97 09/17/16 02:47 90 18 95/59 96 Room Air 09/17/16 01:28 105 09/17/16 01:21 36.6 107 16 111/75 98 Room Air Physical Exam CONSTITUTIONAL: Appears altered consistent with intoxication. HEENT: No icterus, moist mucous membranes NECK: No meningismus, trachea is midline. CARDIOVASCULAR: Regular rate, normal perfusion RESPIRATORY: Unlabored breathing. Clear to auscultation. GASTROINTESTINAL: Non-tender GENITOURINARY: No flank tenderness MUSCULOSKELETAL: Full range of motion NEUROLOGIC: No acute gross focal deficits. PSYCHIATRIC: Normal affect SKIN: Normal for ethnicity. Medical Decision & Procedures Laboratory Results Test 09/17/16 01:45 09/17/16 01:47 Ethyl Alcohol mg/dL 87.0 mg/dl (0-3) Bedside Hemoglobin 17.3 g/dl (14.0-18.0) Bedside Hematocrit 51 % (42-52) Bedside Sodium 138 mEq/L (135-144) Bedside Potassium 3.3 mEq/L (3.3-5.0) Bedside Chloride 99 mEq/L (101-112) Bedside Total CO2 20 mEq/l (24-31) Anion Gap 23.0 mmol/L (16-25) Bedside Blood Urea Nitrogen 13 mg/dl (7-18) Bedside Creatinine 1.0 mg/dl (0.6-1.3) Bedside Glucose (other) 124 mg/dl (70-99) Bedside Ionized Calcium (J[place]ar) 1.14 mmol/l (1.12-1.32) Labs reviewed by ED physician. Medications Administered Medications (Trade) Dose Ordered Sig/Timi Route Start Time Stop Time Status Last Admin Dose Admin Ondansetron HCl (Zofran Odt) 4 mg NOW STAT PO 09/17/16 02:07 09/17/16 02:08 DC 09/17/16 02:11 4 MG ED Course 0135: Past medical records reviewed. The patient was evaluated in room B2. A complete history and physical examination was performed. 0207: Zofran 4 mg PO 0230: I reassessed the patient at this time. He is feeling better and resting comfortably. I discussed the results and treatment plan with the patient. I answered all pertaining questions that he had. He expressed understanding and verbalized agreement. The patient will be discharged home. Medical Decision Differential diagnoses includes alcohol intoxication. 20-year-old presented to the emergency room for alcohol intoxication and was requesting "something for pain" he is noted to have multiple ED visits for analgesic-related complaints in the past. He was discharged in care of friend in no acute distress. Impression Primary Impression: Alcoholic intoxication Scribe Attestation The scribe's documentation has been prepared under my direction and personally reviewed by me in its entirety. I confirm that the note above accurately reflects all work, treatment, procedures, and medical decision making performed by me. Departure Information Dispostion Home / Self-Care Referrals Kerry Ferguson M.D. (PCP) Forms HOME CARE DOCUMENTATION FORM, IMPORTANT VISIT INFORMATION Patient Instructions ED Alcohol Intoxication, My [facility] Problem Qualifiers Primary Impression: Alcoholic intoxication Complication of substance-induced condition: uncomplicated Qualified Codes: F10.120 - Alcohol abuse with intoxication, uncomplicated
[2016-09-17] MEDS ORDERED: PEPTO BISMOL PO (01:50)
[2016-09-17 02:03] LABS: ISTAT HEMOGLOBIN 17.3 g/dl (14.0-18.0); ISTAT IONIZED CALCIUM 1.14 mmol/l (1.12-1.32)
[2016-09-17] MEDS ORDERED: ONDANSETRON 4MG OD TAB PO STA (02:07)
[2016-09-17 03:00] VITALS: BP 106/76; PULSE 84; O2SAT 97
[2016-09-19] MEDS ORDERED: TACR1CAP PO (00:26)
[2016-09-19] MEDS ORDERED: CLON1TAB3 PO (04:06)
== END 2016-09-17 03:00 | disposition home or self-care (01) ==
LOC: EDBD 01:07 → C.ED 01:08 → C.EDB 03:00
DX: F10.129 Alcohol abuse with intoxication, unspecified (principal); Z94.4 Liver transplant status; Z79.899 Other long term (current) drug therapy

== ENCOUNTER 2016-09-19 06:57 | Emergency (ER) | payer OTHER ==
[~2016-09-19] VITALS: Ht 170.2 cm; Wt 77.0 kg
[~2016-09-19 06:57] MED LIST changes: -BISM262T3 PO; +CLON1TAB3 PO; +PEPTO BISMOL PO; +TACR1CAP PO
[2016-09-19 07:05] VITALS: TEMP 37.1; Ht 170.2 cm; Wt 77.0 kg
[2016-09-19] MEDS ORDERED: PPTBS PO (07:16)
[2016-09-19] MEDS ORDERED: SODIUM CHLORIDE 0.9% 500ML 500 ML IV STA (07:17)
[2016-09-19] MEDS ORDERED: KETOROLAC TROMETHAMINE 15 MG/ML VIAL IV STA (07:17)
--- NOTE | 2016-09-19 07:49 | EMERGENCY ROOM VISIT NOTE ---
History First contact with patient: 07:07 Chief Complaint: FLU LIKE SX Stated Complaint: FLU LIKE SYMPTOMS,WEAK,ACHES/PAINS,SORE THROAT AKIL History of Present Illness The patient is a 20 year old male who presents to the Emergency Room via private vehicle with complaints of "flulike symptoms, weak, aches/pains, sore throat". The patient states that last night as he was watching the Super Bowl he began with a cough, body aches and left upper quadrant pain. He states he did not sleep much which is unusual for him as he takes sleeping medication. He then began to feel shaky, felt chilled and then complained of pain in the neck region and the throat. He also feels nauseous and slightly lightheaded. 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 He takes tacrolimus for this transplant. He has been seeing a transcription coordinator as his ALT and AST are beginning to increase. He denies any abdominal pain, headache, diarrhea, urinary problems. Review of Systems A complete 10-point Review of Systems was discussed with the patient, with pertinent positives and negatives listed in the History of Present Illness. All remaining Review of Systems questions can be considered negative unless otherwise specified. Past Medical/Surgical History Medical Problems: (1) Acute liver failure (2) ADHD (attention deficit hyperactivity disorder) (3) Depression (4) GERD (gastroesophageal reflux disease) (5) History of biliary atresia (6) Liver Transplant Status (7) Polycythemia (8) Situs Inversus (9) Situs Inversus Surgical Problems: (1) Liver Transplant Status Family History No pertinent family history Unremarkable Social History Smoking Status: Never Smoker Alcohol Use: occasionally Drug Use: none Marital Status: single Housing Status: lives with family Occupation Status: employed, student Social History: Patient is currently employed, he denies alcohol and tobacco use. Current/Historical Medications Scheduled Clonazepam (Klonopin), 1 MG PO BID Hyoscyamine Sulfate (Levsin), 0.125 MG PO TID Tacrolimus (Prograf), 2 MG PO BID Scheduled PRN Amphetamine-Dextroamphetamine 30MG (Adderall 30MG), 30 MG PO DAILY PRN for Focus Bismuth Subsalicylate (Pepto-Bismol Susp), 15 ML PO Q6 PRN for Indigestion Dicyclomine Hcl (Dicyclomine Hcl), 10 MG PO QID PRN for Abdominal Pain/Cramping Ibuprofen Tab (Advil), 200 MG PO UD PRN for Pain or Fever Triamcinolone Acet (Aristocort 0.1%), 1 APPLN TOP BID PRN for Itching Allergies Coded Allergies: Penicillins (Verified Allergy, Unknown, ., 09/19/16) Midazolam (Verified Adverse Reaction, Intermediate, "PARANOIA", 09/19/16) Acetaminophen (Unverified Adverse Reaction, Unknown, "AFFECTS MY LIVER", ) Physical Exam Vital Signs Date Time Temp Pulse Resp B/P Pulse Ox O2 Delivery O2 Flow Rate FiO2 09/19/16 09:51 119/72 09/19/16 08:12 118 18 133/78 98 Room Air 09/19/16 07:05 37.1 111 18 134/91 98 Room Air Physical Exam VITAL SIGNS - Vital signs and nursing notes were reviewed. Afebrile, normotensive, slightly tachycardic at a rate of 111 bpm, and is saturating well on room air at 98%. GENERAL -20-year-old male appearing his stated age who is in no acute distress. Communicates well with provider and answers questions appropriately. SKIN - Without rashes. No meningeal rash. HEAD - NC/AT. No meningeal signs. EYES - PERRL with EOMI bilaterally. Sclera anicteric. Palpebral conjunctiva pink and moist with no injection noted. EARS - No deformities of external structures noted on gross examination bilaterally. No pain elicited with palpation of the tragus bilaterally. External auditory canals without discharge or otorrhea. Tympanic membranes pearly khan without retraction or bulging. No fluid or purulent material visualized behind the TM. Handle of malleus, umbo, cone of light, pars tensa/ flaccid all easily visualized. NOSE - Midline and without cyanosis. No epistaxis or purulent drainage noted. Septum midline without deviation or septal hematoma noted. MOUTH/OROPHARYNX - Without perioral cyanosis. Buccal mucosa pink and moist and without leukoplakia. Tongue midline with equal elevation of palate bilaterally. No tonsillar hypertrophy, erythema, or exudates noted. Good dentition noted. NECK - Neck with FROM. Supple to palpation. Minimal lymphadenopathy noted. No nuchal rigidity. No meningeal signs. LUNGS - Chest wall symmetric without accessory muscle use, intercostals retractions, or central cyanosis. Normal vesicular breath sounds CTA B/L. No wheezes, rales, or rhonchi appreciated. CARDIAC - RRR with S1/S2. No murmur, rubs, or gallops appreciated. ABDOMEN - Abdominal contour without pulsations or visible masses. BS normoactive all four quadrants. There is slight tenderness in left upper quadrant overlying the surgical scar. No palpable masses, hepatosplenomegaly, or ascites noted. EXTREMITIES - No clubbing or peripheral cyanosis. No pretibial edema present. + 5/5 strength noted in UE/LE bilaterally. NEUROLOGIC - Cranial nerves II through XII grossly intact. Sensory intact to light touch throughout. PSYCH - A&Ox3 and cooperates fully with examiner. Pt is very pleasant and interacts well with examiner. Medical Decision & Procedures ER Provider Diagnostic Interpretation: [~ rep ct add3]] PA CHEST WITH ABDOMINAL SERIES CLINICAL HISTORY: Left upper quadrant abdominal pain. Flulike symptoms. FINDINGS: A PA chest radiograph is compared to study dated 08/19/2016. The examination is degraded by apical lordotic positioning. Situs inversus is noted, with the heart located in the right hemithorax. The cardiomediastinal silhouette is unremarkable. The lungs and pleural spaces are clear. No pneumothorax is seen. The bony thorax is grossly intact. Supine and erect abdominal radiographs are compared to study dated 08/19/2016 and correlated with abdominal CT dated 08/13/2016. There is a nonobstructed abdominal bowel gas pattern. The gastric bubble is located on the right and the liver is located on the left consistent with situs inversus. No intraperitoneal free air is seen. There is moderate colonic fecal retention. A calcific density projecting over the right aspect of the sacrum likely represents bowel contents. There is no radiographic evidence of nephrolithiasis. The lumbosacral spine and bony pelvis appear intact. IMPRESSION: 1. No acute cardiopulmonary abnormality. 2. Nonobstructed abdominal bowel gas pattern noting moderate colonic fecal retention. 3. 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 Electronically signed by: Ricki Zafar M.D. 09/19/2016 8:11 AM Dictated Date/Time: 09/19/2016 8:08 AM [~ rep ct add3]] ULTRASOUND OF THE LIVER CLINICAL HISTORY: Left upper quadrant abdominal pain. COMPARISON STUDY: Abdominal ultrasound dated 08/19/2016. Abdominal CT dated 08/13/2016. TECHNIQUE: Real-time, grayscale, and color flow sonography of the liver was performed. Images are reviewed in the transverse and longitudinal planes. FINDINGS: Liver: There is situs inversus totalis, with the liver identified in the left upper quadrant. The liver is normal in size and echotexture. There is no intrahepatic biliary ductal dilatation. The main portal vein is patent. Gallbladder: The gallbladder is surgically absent. The common bile duct is not well visualized. Pancreas: Visualized portions of the pancreatic head and body are normal in appearance. Right kidney: Survey images of the right kidney demonstrate normal size and echotexture. There is no hydronephrosis. Ascites: None. IMPRESSION: 1. No acute sonographic abnormality is identified noting status post cholecystectomy. 2. 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 Electronically signed by: Ricki Zafar M.D. 09/19/2016 8:59 AM Dictated Date/Time: 09/19/2016 8:56 AM Laboratory Results 09/19/16 08:28 Red Blood Count 6.45, Mean Corpuscular Volume 81.4, Mean Corpuscular Hemoglobin 29.5, Mean Corpuscular Hemoglobin Concent 36.2, Mean Platelet Volume 10.1, Neutrophils (%) (Auto) 79.3, Lymphocytes (%) (Auto) 10.5, Monocytes (%) (Auto) 8.7, Eosinophils (%) (Auto) 1.0, Basophils (%) (Auto) 0.2, Neutrophils # (Auto) 8.58, Lymphocytes # (Auto) 1.13, Monocytes # (Auto) 0.94, Eosinophils # (Auto) 0.11, Basophils # (Auto) 0.02 09/19/16 07:32 Test 09/19/16 07:27 09/19/16 07:32 09/19/16 08:28 Influenza Type A Antigen Neg for Influ A (NEG) Influenza Type B Antigen Neg for Influ B (NEG) Anion Gap 9.0 mmol/L (3-11) Est Creatinine Clear Calc Drug Dose 77.4 ml/min Estimated GFR () 82.1 Estimated GFR (Non- 70.8 BUN/Creatinine Ratio 9.1 (10-20) Calcium Level 8.9 mg/dl (8.5-10.1) Total Bilirubin 1.6 mg/dl (0.2-1) Aspartate Amino Transf (AST/SGOT) 22 U/L (15-37) Alanine Aminotransferase (ALT/SGPT) 41 U/L (12-78) Alkaline Phosphatase 102 U/L (45-117) Total Creatine Kinase 118 U/L (39-308) Creatine Kinase MB 0.8 ng/ml (0.5-3.6) Creatine Kinase MB Ratio 0.7 (0-3.0) Total Protein 7.5 gm/dl (6.4-8.2) Albumin 4.2 gm/dl (3.4-5.0) Globulin 3.3 gm/dl (2.5-4.0) Albumin/Globulin Ratio 1.3 (0.9-2) Lipase 85 U/L (73-393) White Blood Count 10.81 K/uL (4.8-10.8) Red Blood Count 6.45 M/uL (4.7-6.1) Hemoglobin 19.0 g/dL (14.0-18.0) Hematocrit 52.5 % (42-52) Mean Corpuscular Volume 81.4 fL (80-100) Mean Corpuscular Hemoglobin 29.5 pg (25-34) Mean Corpuscular Hemoglobin Concent 36.2 g/dl (32-36) Platelet Count 128 K/uL (130-400) Mean Platelet Volume 10.1 fL (7.4-10.4) Neutrophils (%) (Auto) 79.3 % Lymphocytes (%) (Auto) 10.5 % Monocytes (%) (Auto) 8.7 % Eosinophils (%) (Auto) 1.0 % Basophils (%) (Auto) 0.2 % Neutrophils # (Auto) 8.58 K/uL (1.4-6.5) Lymphocytes # (Auto) 1.13 K/uL (1.2-3.4) Monocytes # (Auto) 0.94 K/uL (0.11-0.59) Eosinophils # (Auto) 0.11 K/uL (0-0.5) Basophils # (Auto) 0.02 K/uL (0-0.2) RDW Standard Deviation 39.7 fL (36.4-46.3) RDW Coefficient of Variation 13.6 % (11.5-14.5) Immature Granulocyte % (Auto) 0.3 % Immature Granulocyte # (Auto) 0.03 K/uL (0.00-0.02) Medications Administered Medications (Trade) Dose Ordered Sig/Timi Route Start Time Stop Time Status Last Admin Dose Admin Ketorolac Tromethamine 15 mg 15 mg NOW STAT IV 09/19/16 07:17 09/19/16 07:21 DC 09/19/16 08:08 15 MG Sodium Chloride (Nss 500ml) 500 ml @ 500 mls/hr Q1H STAT IV 09/19/16 07:17 2 08:16 DC 09/19/16 07:17 500 MLS/HR Menthol (Nice Shanika) 1 shanika NOW STAT PO 09/19/16 08:15 09/19/16 08:16 DC 09/19/16 08:15 1 SHANIKA Medical Decision patient was seen and evaluated as above. After obtaining a thorough history and physical examination IV access was initiated and a CBC, CMP, CPK, CK-MB, influenza, lipase, abdomen to be with PA chest, rapid strep secondary to subjective and objective examination findings. Acute onset of symptoms that are flulike in nature are leading to a most likely diagnosis of flu however the above workup was completed secondary to patient being on immunosuppressants for his left upper quadrant liver transplant. He states he has situs inversus that' s why his liver is in the left upper quadrant. He was hydrated with 500 mL of saline. 15 mg of Toradol was given IV for his pain. He was nontoxic in appearance and converses well. Ultrasound was obtained of the liver. CBC revealed hemoglobin near 20 and therefore this was repeated as there was concern for lab error. Result was 19. This is 0.5 higher than the last hemoglobin in the system. The patient did not have any nuchal rigidity, no meningeal signs however he did note neck stiffness therefore an LP was offered. Patient declined lumbar puncture 9:25 AM. He was given Toradol for his pain but then asked if there was something else he could take for pain. I was hesitant to give him any narcotic medication, as the symptoms and findings I do not feel our best treated with narcotic medication nor do I think they would improve his pain. He wanted something for his sore throat and was given a lozenge. He did not have any findings to suggest emergent process. CBC revealed slight leukocytosis on repeat draw of 10.1. There was elevation of his rub blood cell, hemoglobin and hematocrit count at 20 and 19 upon redraw for hemoglobin. Platelet count was low at 129 and 128 respectively, these are just under normal. Chem panel reveals no slight abnormality, slight decrease in BUN ratio. Total bilirubin was elevated at 1.6. He was negative for flu. Radiograph was negative for acute process. Ultrasound was negative for acute process. I do believe the patient likely has a viral process that will pass in the next few days as he does appear well. Patient was educated upon management , was instructed to follow-up from today's visit, was instructed upon worrisome symptoms in which to return and was discharged home in good condition. Prior to discharge the patient did note that he would probably go to [place] to be evaluated after leaving here. This is where his transplant specialists are. In evaluation treatment of this patient the following differential diagnoses were entertained: Hepatitis, acute viral illness, influenza, meningitis, among others. Patient likely has an acute process that is viral in nature and is not emergent. His liver appeared to be functioning normally. Impression Primary Impression: Influenza-like symptoms Departure Information Dispostion Home / Self-Care Condition GOOD Referrals Kerry Ferguson M.D. (PCP) Patient Instructions [facility] Additional Instructions You were seen in the emergency department for your flulike symptoms and left upper quadrant abdominal pain. Your blood work did not reveal any sign of concerning infection. Your hemoglobin was elevated today at 20 and 19 respectively. These were elevated on previous visit and found to be 18.5. Your AST and ALT were normal today. Your total bilirubin was slightly elevated at 1.6. Your chest x-ray with abdominal series and liver ultrasound were unremarkable for emergent process. You were negative for fluids we discussed however this is not a 100% accurate test. It is likely still you have a viral illness at this time but will likely pass in the next few days. Please have your blood work repeated with your family doctor as soon as possible and call them today for recheck as soon as possible. Please call your transcription coordinator to discuss your follow up. Please return to the emergency department with any new/concerning symptoms from your standpoint.
[2016-09-19 07:52] LABS: BASO % 0.2 %; BASO ABS # 0.02 K/uL (0-0.2); COMPLETE YES; EOS % 1.3 %; HEMATOCRIT 54.1 % (42-52); IG% 0.3 %; LYMPH % 10.1 %; MEAN CELL VOLUME 82.2 fL (80-100); MEAN CORPUSCULAR HEMOGLOBIN 30.4 pg (25-34); MONO % 6.4 %; NEUT % 81.7 %; PLATELET COUNT 129 K/uL (130-400); RED BLOOD COUNT 6.58 M/uL (4.7-6.1); WHITE BLOOD COUNT 9.93 K/uL (4.8-10.8)
[2016-09-19 08:04] LABS: BUN/CREATININE RATIO 9.1 (10-20); CALCIUM 8.9 mg/dl (8.5-10.1); CREATININE 1.4 mg/dl (0.60-1.40); POTASSIUM 3.6 mmol/L (3.5-5.1)
[2016-09-19 08:09] LABS: ALB/GLOB RATIO 1.3 (0.9-2); CKMB/CK RATIO 0.7 (0-3.0)
[2016-09-19 08:12] VITALS: PULSE 118; O2SAT 98
--- NOTE | 2016-09-19 08:13 | DIAGNOSTIC IMAGING REPORT ---
PA CHEST WITH ABDOMINAL SERIES CLINICAL HISTORY: Left upper quadrant abdominal pain. Flulike symptoms. FINDINGS: A PA chest radiograph is compared to study dated 08/19/2016. The examination is degraded by apical lordotic positioning. Situs inversus is noted, with the heart located in the right hemithorax. The cardiomediastinal silhouette is unremarkable. The lungs and pleural spaces are clear. No pneumothorax is seen. The bony thorax is grossly intact. Supine and erect abdominal radiographs are compared to study dated 08/19/2016 and correlated with abdominal CT dated 08/13/2016. There is a nonobstructed abdominal bowel gas pattern. The gastric bubble is located on the right and the liver is located on the left consistent with situs inversus. No intraperitoneal free air is seen. There is moderate colonic fecal retention. A calcific density projecting over the right aspect of the sacrum likely represents bowel contents. There is no radiographic evidence of nephrolithiasis. The lumbosacral spine and bony pelvis appear intact. IMPRESSION: 1. No acute cardiopulmonary abnormality. 2. Nonobstructed abdominal bowel gas pattern noting moderate colonic fecal retention. 3. 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 Electronically signed by: Ricki Zafar M.D. 09/19/2016 8:11 AM Dictated Date/Time: 09/19/2016 8:08 AM
[2016-09-19] MEDS ORDERED: COUGH DROP (SUGAR FREE) LOZ 24 LOZ/1 BOX PO STA (08:15)
[2016-09-19 08:42] LABS: BASO % 0.2 %; BASO ABS # 0.02 K/uL (0-0.2); COMPLETE YES; HEMATOCRIT 52.5 % (42-52); IG% 0.3 %; LYMPH % 10.5 %; LYMPH ABS # 1.13 K/uL (1.2-3.4); MEAN CELL VOLUME 81.4 fL (80-100); MEAN CORPUSCULAR HEMOGLOBIN 29.5 pg (25-34); MEAN CORPUSCULAR HGB CONC 36.2 g/dl (32-36); MEAN PLATELET VOLUME 10.1 fL (7.4-10.4); MONO % 8.7 %; NEUT % 79.3 %; PLATELET COUNT 128 K/uL (130-400); RED BLOOD COUNT 6.45 M/uL (4.7-6.1); WHITE BLOOD COUNT 10.81 K/uL (4.8-10.8)
--- NOTE | 2016-09-19 09:00 | DIAGNOSTIC IMAGING REPORT ---
ULTRASOUND OF THE LIVER CLINICAL HISTORY: Left upper quadrant abdominal pain. COMPARISON STUDY: Abdominal ultrasound dated 08/19/2016. Abdominal CT dated 08/13/2016. TECHNIQUE: Real-time, grayscale, and color flow sonography of the liver was performed. Images are reviewed in the transverse and longitudinal planes. FINDINGS: Liver: There is situs inversus totalis, with the liver identified in the left upper quadrant. The liver is normal in size and echotexture. There is no intrahepatic biliary ductal dilatation. The main portal vein is patent. Gallbladder: The gallbladder is surgically absent. The common bile duct is not well visualized. Pancreas: Visualized portions of the pancreatic head and body are normal in appearance. Right kidney: Survey images of the right kidney demonstrate normal size and echotexture. There is no hydronephrosis. Ascites: None. IMPRESSION: 1. No acute sonographic abnormality is identified noting status post cholecystectomy. 2. 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 Electronically signed by: Ricki Zafar M.D. 09/19/2016 8:59 AM Dictated Date/Time: 09/19/2016 8:56 AM
[2016-09-19 09:51] VITALS: BP 119/72
[2016-09-19] MEDS ORDERED: AMPH30TA2 PO (12:14)
[2016-09-19] MEDS ORDERED: HYOS1TAB PO (14:50)
[2016-09-19] MEDS ORDERED: DICY10CA12 PO (20:48)
[2016-09-19] MEDS ORDERED: TRMCR130WC TOP (20:48)
[2016-09-19] MEDS ORDERED: IBUP-103 PO (20:50)
== END 2016-09-19 09:56 | disposition home or self-care (01) ==
LOC: C.EDB 06:59 → C.EDA 09:56
DX: J02.9 Acute pharyngitis, unspecified (principal); R53.1 Weakness; R52 Pain, unspecified; F90.1 Attention-deficit hyperactivity disorder, predominantly hyperactive type; F32.9 Major depressive disorder, single episode, unspecified; K21.9 Gastro-esophageal reflux disease without esophagitis; Z94.4 Liver transplant status

== ENCOUNTER 2016-11-01 23:12 | Emergency (ER) | payer OTHER ==
[~2016-11-01] VITALS: Ht 170.2 cm; Wt 79.7 kg
[~2016-11-01 23:12] MED LIST changes: +AMPH30TA2 PO; +DICY10CA12 PO; +HYOS1TAB PO; +IBUP-103 PO; -PEPTO BISMOL PO; +PPTBS PO; +TRMCR130WC TOP
[2016-11-01 23:16] VITALS: BP 137/100; TEMP 36.6; O2SAT 97; Ht 170.2 cm; Wt 79.7 kg
[2016-11-01 23:19] VITALS: PULSE 125
[2016-11-01] MEDS ORDERED: SODIUM CHLORIDE 0.9% 1000ML 1,000 ML IV ONE (23:45)
--- NOTE | 2016-11-02 04:33 | EMERGENCY ROOM VISIT NOTE ---
History First contact with patient: 23:14 Chief Complaint: ABDOMINAL PAIN Stated Complaint: ABDOMINAL PAIN Nursing Triage Summary: Pt c/o left abdominal pain where he had a liver transplant as a child. States "thinks he is in liver failure." C/o nausea due to stress he had with his father today. Pt states he took 10 Advil PM last night to sleep, he states he knows he shouldn't take tylenol or advil but he wanted to sleep. History of Present Illness The patient is a 21 year old male who presents to the Emergency Room with complaints of left-sided abdominal pain for the past week. The patient has a history of liver transplant as a child. The patient is concerned that he is in liver failure. He does have nausea and has been taking Advil at home for his symptoms. The patient evidently had a fight with his father joshua, and called 911 to speak with the police. Police and EMS did arrive, and the patient stated that he wanted to go to [facility] in [place] For his symptoms. He called police because his father would not take him there. EMS informed the patient that the closest appropriate facility for his care was here at [facility], and not 2 hours away in [facility]. The patient was agreeable to transport to this facility. He rates his current discomfort a 10/10 that worsens with movement. He has not had fever or chills. He has been eating and drinking and using the bathroom is normal. No chest pain or shortness of breath. Review of Systems More than 10 systems were reviewed and otherwise negative with the exception of history of present illness. Past Medical/Surgical History Medical Problems: (1) Acute liver failure (2) ADHD (attention deficit hyperactivity disorder) (3) Depression (4) GERD (gastroesophageal reflux disease) (5) History of biliary atresia (6) Liver Transplant Status (7) Polycythemia (8) Situs Inversus (9) Situs Inversus Surgical Problems: (1) Liver Transplant Status Family History No pertinent family history Social History Smoking Status: Never Smoker Alcohol Use: occasionally Drug Use: none Marital Status: single Housing Status: lives with family Occupation Status: employed, student Current/Historical Medications Scheduled Clonazepam (Klonopin), 1 MG PO BID Hyoscyamine Sulfate (Levsin), 0.125 MG PO TID Tacrolimus (Prograf), 2 MG PO BID Scheduled PRN Amphetamine-Dextroamphetamine 30MG (Adderall 30MG), 30 MG PO DAILY PRN for Focus Bismuth Subsalicylate (Pepto-Bismol Susp), 15 ML PO Q6 PRN for Indigestion Dicyclomine Hcl (Dicyclomine Hcl), 10 MG PO QID PRN for Abdominal Pain/Cramping Ibuprofen Tab (Advil), 200 MG PO UD PRN for Pain or Fever Triamcinolone Acet (Aristocort 0.1%), 1 APPLN TOP BID PRN for Itching Allergies Coded Allergies: Penicillins (Verified Allergy, Unknown, ., 11/01/16) Midazolam (Verified Adverse Reaction, Intermediate, "PARANOIA", 11/01/16) Acetaminophen (Unverified Adverse Reaction, Unknown, "AFFECTS MY LIVER", ) Physical Exam Vital Signs Date Time Temp Pulse Resp B/P Pulse Ox O2 Delivery O2 Flow Rate FiO2 11/01/16 23:19 125 11/01/16 23:16 36.6 109 18 137/100 97 Room Air Pain Rating (0-10): 0 Physical Exam VITALS: Vitals are noted on the nurse's note and reviewed by myself. Vital signs stable. GENERAL: Well-developed, well-nourished, white male, who is in no acute distress and resting comfortably. Patient is cooperative with the examination. HEAD: Normocephalic atraumatic. EYES: Nonicteric HEART: Regular rate and rhythm without murmurs gallops or rubs. LUNGS: Clear to auscultation bilaterally without wheezes, rales or rhonchi. No retractions or accessory muscle use. ABDOMEN: Positive normal bowel sounds x 4. Soft without significant tenderness on exam. No rebound or guarding. MUSCULOSKELETAL: No muscle atrophy, erythema, or edema noted. Full range of motion without joint tenderness in all extremities. NEURO: Patient was alert and oriented to person place and time. CN II through XII grossly intact. Medical Decision & Procedures ED Course Physical exam and history were performed. Nursing notes and EMR were reviewed. Patient appears to have abdominal pain off-and-on for the past week. The patient does not appear toxic or icteric on exam. He is afebrile. Review of EMR shows a long-standing history of drug seeking behavior with the patient. He was transitioned to a no narcotic treatment plan at this facility 3 weeks ago , and this is his first visit since being placed on a no narcotic treatment plan. I explained to the patient that we would gather blood work and plain films in order to better evaluate his status. The patient was very fixated on his pain control needs, and I educated him regarding his no narcotic treatment plan. The patient was very angry and upset with this. He voiced his dissatisfaction that we would no longer be providing him pain medication. I did explain to the patient that we would do the appropriate workup, and should he need transferred to [facility] we would make the appropriate arrangements. I left the room, and after about 30 minutes I was contacted by nursing. The patient was refusing any and all interventions. He and I had a lengthy discussion regarding this, and he stated that he would be leaving from here and traveling to [facility]. I explained that this was AGAINST MEDICAL ADVICE as his evaluation was not completed. Despite this education and significant time spent answering the patient's questions, the patient decided to elope without further care or discharge instructions. Overall I feel the patient is drug-seeking. He refused all care after I explained that we would not be able to treat his pain. The patient has had several similar visits like this to the ER in the past. He did not receive discharge instructions because of his elopement. The charge nurse was notified of the episode. The chart was completed utilizing [employer] Speech Voice Recognition Software. Grammatical errors, random word insertions, pronoun errors, and incomplete sentences are an occasional consequence of this system due to software limitations, ambient noise, and hardware issues. Any formal questions or concerns about the content, text, or information contained within the body of this dictation should be directly addressed to the provider for clarification. . Medical Decision Differential diagnosis: Etiologies such as appendicitis, diverticulitis, PUD, biliary pathology, UTI, pancreatitis, obstruction, mesenteric ischemia, aortic pathology, infections, inflammatory bowel disease, renal colic, as well as others were entertained. Impression Primary Impression: Left against medical advice Additional Impression: Drug-seeking behavior Departure Information Dispostion Against Medical Advice Condition FAIR Forms HOME CARE DOCUMENTATION FORM, IMPORTANT VISIT INFORMATION Patient Instructions [facility] Problem Qualifiers
== END 2016-11-02 00:20 | disposition left against medical advice (07) ==
LOC: EDBD 23:12 → C.EDC 23:13
DX: Z76.5 Malingerer [conscious simulation] (principal); Z94.4 Liver transplant status; K72.00 Acute and subacute hepatic failure without coma; F90.9 Attention-deficit hyperactivity disorder, unspecified type; F32.9 Major depressive disorder, single episode, unspecified; K21.9 Gastro-esophageal reflux disease without esophagitis; D75.1 Secondary polycythemia; Q89.3 Situs inversus; Z79.899 Other long term (current) drug therapy

== ENCOUNTER 2017-06-10 21:31 | Observation (INO) | payer OTHER ==
[~2017-06-10] VITALS: Ht 170.2 cm; Wt 73.0 kg
[2017-06-10 22:24] LABS: ALB/GLOB RATIO 1.3 (0.9-2); ALKALINE PHOSPHATASE 123 U/L (45-117); ALT/SGPT 74 U/L (12-78); AST/SGOT 41 U/L (15-37); BLOOD UREA NITROGEN 17 mg/dl (7-18); BUN/CREATININE RATIO 15.9 (10-20); CALCIUM 9.2 mg/dl (8.5-10.1); CARBON DIOXIDE 28 mmol/L (21-32); CHLORIDE 104 mmol/L (98-107); CREATININE 1.06 mg/dl (0.60-1.40); GLUCOSE 108 mg/dl (70-99); POTASSIUM 3.4 mmol/L (3.5-5.1); SODIUM 140 mmol/L (136-145)
[2017-06-10] MEDS ORDERED: SODIUM CHLORIDE 0.9% 500ML 500 ML IV STA (22:42)
[2017-06-10 22:50] LABS: HEMATOCRIT 56.6 % (42-52); MEAN CELL VOLUME 83.1 fL (80-100); MEAN CORPUSCULAR HEMOGLOBIN 31.6 pg (25-34); MEAN PLATELET VOLUME 10.4 fL (7.4-10.4); PLATELET COUNT 154 K/uL (130-400); RED BLOOD COUNT 6.81 M/uL (4.7-6.1); WHITE BLOOD COUNT 11.37 K/uL (4.8-10.8)
--- NOTE | 2017-06-10 22:52 | EMERGENCY ROOM VISIT NOTE ---
History Report prepared by Nazanin: Rey Hazel Under the Supervision of: Dr. Ricki Samano M.D. First contact with patient: 21:51 Chief Complaint: CHEST PAIN Stated Complaint: CHEST DISCOMFORT History of Present Illness The patient is a 21 year old male who presents to the Emergency Room with complaints of constant chest pain that started a couple of days ago. He rates his pain as a 4/10 in severity. The patient describes his pain as a sharp and stiff sensation. He states that he thought it was a muscle strain, but reports that he would experience shortness of breath, chest pain, and a pounding heartbeat whenever he was sitting. The patient also states that it feels as if his respirations are "off". He reports that he had blood work done by his liver transplant doctor two days ago and his hemoglobin was 20.3. The patient states that his doctor told him to follow up with hematology. He states that he has had an elevated hemoglobin in the past, but states that his levels have only been at 17 or 18. The patient states that he has seen hematology before. He reports that he has seen Dr. Carlisle in [facility] to have therapeutic phlebotomy done, but denies any relief of symptoms. The patient admits that he had a liver transplant in 1993 due to his diagnosis of biliary atresia. 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 The patient denies a personal or family history of blood clots in lungs or legs. He also denies any fever, cough, vomiting, and diarrhea. Source of History: patient Onset: a couple of days ago Position: chest Symptom Intensity: 4/10 Quality: sharp, other (stiff) Timing: constant Associated Symptoms: No fevers, No cough, No vomiting, No diarrhea Review of Systems See HPI for pertinent positives & negatives. A total of 10 systems reviewed and were otherwise negative. Past Medical & Surgical Medical Problems: (1) Acute liver failure (2) ADHD (attention deficit hyperactivity disorder) (3) Depression (4) GERD (gastroesophageal reflux disease) (5) History of biliary atresia (6) Liver Transplant Status (7) Polycythemia (8) Situs Inversus (9) Situs Inversus Surgical Problems: (1) Liver Transplant Status Family History No pertinent family history Social History Smoking Status: Never Smoker Alcohol Use: occasionally Drug Use: none Marital Status: single Housing Status: lives with family Occupation Status: employed, student Current/Historical Medications Scheduled Tacrolimus (Prograf), 2 MG PO BID Scheduled PRN Bismuth Subsalicylate (Pepto-Bismol Susp), 15 ML PO Q6 PRN for Indigestion Ibuprofen Tab (Advil), 400 MG PO UD PRN for Pain or Fever Triamcinolone Acet (Aristocort 0.1%), 1 APPLN TOP BID PRN for Itching Allergies Coded Allergies: Penicillins (Verified Allergy, Unknown, ., 11/01/16) Midazolam (Verified Adverse Reaction, Intermediate, "PARANOIA", 11/01/16) Acetaminophen (Unverified Adverse Reaction, Unknown, "AFFECTS MY LIVER", ) Physical Exam Vital Signs Date Time Temp Pulse Resp B/P (MAP) Pulse Ox O2 Delivery O2 Flow Rate FiO2 06/10/17 23:31 84 23 125/75 94 Room Air 06/10/17 23:01 81 16 129/93 95 Room Air 06/10/17 22:31 92 24 138/93 96 Room Air 06/10/17 22:09 93 06/10/17 22:00 86 22 140/92 96 Room Air 06/10/17 21:50 100 21 131/94 99 Room Air 06/10/17 21:50 99 Room Air 06/10/17 21:50 99 Room Air 06/10/17 21:34 36.6 104 16 140/88 99 Room Air Physical Exam GENERAL: Patient is in no acute distress. HEENT: No acute trauma, normocephalic atraumatic, mucous membranes moist, no nasal congestion, no scleral icterus. NECK: No stridor, no adenopathy, no meningismus, trachea is midline. LUNGS: Clear to auscultation bilaterally, no wheeze, no rhonchi, breath sounds equal. HEART: Without murmurs gallops or rubs, regular rate and rhythm. CHEST: Nontender chest wall. ABDOMEN: Soft, nontender, bowel sounds positive, no hernias, no peritonitis. EXTREMITIES: No cyanosis or edema, full range of motion of all the joints without pain or difficulty, no signs for acute trauma. NEUROLOGIC: Oriented x 3, no acute motor or sensory deficits, no focal weakness. SKIN: No rash, no jaundice, no diaphoresis. Medical Decision & Procedures ER Provider Diagnostic Interpretation: X-ray results as stated below per interpretation by me and the radiologist: CHEST ONE VIEW PORTABLE CLINICAL HISTORY: CHEST PAIN dyspnea COMPARISON STUDY: 09/19/2016 FINDINGS: Findings of situs inversus are again noted. Lungs are clear. Diaphragms smooth. Costophrenic angles are sharp. There are no focal infiltrates. IMPRESSION: No acute process. Situs inversus. The above report was generated using voice recognition software. It may contain grammatical, syntax or spelling errors. Electronically signed by: Juan Luis Delgado M.D. 06/10/2017 10:51 PM Dictated Date/Time: 06/10/2017 10:50 PM Laboratory Results 06/10/17 21:45 06/10/17 21:45 Test 06/10/17 21:45 06/10/17 22:18 06/10/17 22:35 Red Blood Count 6.81 M/uL (4.7-6.1) Mean Corpuscular Volume 83.1 fL (80-100) Mean Corpuscular Hemoglobin 31.6 pg (25-34) Mean Corpuscular Hemoglobin Concent 38.0 g/dl (32-36) RDW Standard Deviation 39.3 fL (36.4-46.3) RDW Coefficient of Variation 13.2 % (11.5-14.5) Mean Platelet Volume 10.4 fL (7.4-10.4) Anion Gap 8.0 mmol/L (3-11) Est Creatinine Clear Calc Drug Dose 101.4 ml/min Estimated GFR () 114.1 Estimated GFR (Non- 98.4 BUN/Creatinine Ratio 15.9 (10-20) Calcium Level 9.2 mg/dl (8.5-10.1) Total Bilirubin 1.3 mg/dl (0.2-1) Aspartate Amino Transf (AST/SGOT) 41 U/L (15-37) Alanine Aminotransferase (ALT/SGPT) 74 U/L (12-78) Alkaline Phosphatase 123 U/L (45-117) Troponin I < 0.015 ng/ml (0-0.045) Total Protein 7.7 gm/dl (6.4-8.2) Albumin 4.3 gm/dl (3.4-5.0) Globulin 3.4 gm/dl (2.5-4.0) Albumin/Globulin Ratio 1.3 (0.9-2) Chemistry Specimen Hemolysis Bedside D-Dimer 154 ng/mlFEU (0-450) Prothrombin Time 10.7 SECONDS (9.0-12.0) Prothromb Time International Ratio 1.0 (0.9-1.1) Activated Partial Thromboplast Time 24.7 SECONDS (21.0-31.0) Partial Thromboplastin Ratio 1.0 Laboratory results reviewed by me. Medications Administered Medications (Trade) Dose Ordered Sig/Timi Route Start Time Stop Time Status Last Admin Dose Admin Sodium Chloride 500 ml @ 999 mls/hr Q31M STAT IV 06/10/17 22:42 06/10/17 23:12 DC 06/10/17 23:16 999 MLS/HR Potassium Chloride (Klor-Con M10) 20 meq NOW STAT PO 06/11/17 00:13 06/11/17 00:23 DC 06/11/17 00:48 20 MEQ ECG Indication: chest pain Rate (beats per minute): 99 Rhythm: normal sinus Findings: T-wave inversion (Inferior), no acute ischemic change, no ectopy Comparison ECG Date: 08/13/16 Change: Inferior changes are new. Repeat EKG shows no significant change. ED Course 2151: The patient was evaluated in room B02. A complete history and physical exam was performed. 2: Ordered Sodium Chloride 500 ml @ 999 mls/hr IV. 2318: I discussed the patients case with Dr. Holloway, [facility]. He reports that there was no reason for emergent transfer to [facility]. 2343: I reevaluated the patient and updated him on his results. I discussed his treatment plan and he agrees. The patient will be further evaluated. 0009: I discussed the patients case with Dr. Bañuelos, [facility] Hospital[facility]. He understands the patients condition and agrees to accept the patient. The patient will be further evaluated. Medical Decision The patient is a 19 year old male who presents to the ED with complaints of constant chest pain that began a couple of days ago. Differential diagnoses considered include cardiac ischemia, PE, musculoskeletal pain, dysrhythmia, aortic dissection, and pneumonia. There is a mild leukocytosis, this could be consistent with infection or just the stress of his situation. His hemoglobin is high at 21.5-he typically runs around 18 or 19. There was no significant electrolyte abnormality, kidney failure. There were a few very mild liver enzyme elevations which have been documented in the past. No coagulopathy. EKG shows a normal sinus rhythm with some inverted T waves in the inferior leads-these T-wave inversions are new. Repeat EKGs here showed similar findings. Of note, these were right-sided EKGs. Cardiac enzyme testing times one is not suggestive of acute cardiac injury. Chest x-ray shows dextrocardia, there is no pneumonia or pneumothorax. D-dimer testing was negative. With the negative d-dimer and my low suspicion for PE, I will stop the workup for this diagnosis. The patient received IV saline, I talked with Ajit Zhong. I spoke with the transplant center. There was no need for emergent referral to their facility. I did speak to hematology oncology from our hospital. Whether or not the high hemoglobin is related to his chest pain is unclear. A hospital stay was felt warranted for continued cardiac workup and possibly phlebotomy in the a.m. I spoke to the patient and case management. The on-call hospitalist was consulted. At this point, the cause for the chest pain is unclear. Medication Reconcilliation Current Medication List: was personally reviewed by me Blood Pressure Screening Patient's blood pressure: Elevated blood pressure Blood pressure disposition: Elevated BP felt to be situational Consults Time Called: [id number] Consulting Physician: [facility] Returned Call: [phone] I discussed the patients case with [facility]. He reports that there was no reason for emergent transfer to them. Additional Consults: Time Called: 8 [facility] Returned Call: 8 Additional Comments: I discussed the patients case [facility] He understands the patients condition and agrees to accept the patient. The patient will be further evaluated. Impression Primary Impression: Substernal precordial chest pain Additional Impression: Abnormal ECG Scribe Attestation The scribe's documentation has been prepared under my direction and personally reviewed by me in its entirety. I confirm that the note above accurately reflects all work, treatment, procedures, and medical decision making performed by me. Departure Information Dispostion Being Evaluated By Hospitalist Referrals No Doctor, Assigned (PCP) Patient Instructions [facility] Problem Qualifiers
[2017-06-10 22:55] LABS: PROTHROMBIN TIME (PATIENT) 10.7 SECONDS (9.0-12.0)
[2017-06-11] VITALS (8 sets, daily range): BP systolic 106–134; BP diastolic 68–97; PULSE 73–90; TEMP 36.6–36.8; O2SAT 95–97; Ht 170.2 cm; Wt 73.0 kg
[2017-06-11] MEDS ORDERED: POTASSIUM CHLORIDE 10 MEQ TABCR PO STA (00:13)
[2017-06-11 00:54] LABS: MAGNESIUM 1.9 mg/dl (1.8-2.4)
[2017-06-11] MEDS ORDERED: GI COCKTAIL PO ONE (01:30)
[2017-06-11] MEDS ORDERED: LACTATED RINGER'S 1000ML 1,000 ML IV STA (01:43)
[2017-06-11] MEDS ORDERED: PANTOprazole SOD 40 MG TAB PO STA (01:47)
[2017-06-11] MEDS ORDERED: LIDOCAINE HCL 2% VISC SOLN 20 ML UDC ONE (01:56)
[2017-06-11] MEDS ORDERED: ALUMINUM/MAGNESIUM SUSP 30 ML UDC ONE (01:56)
[2017-06-11] MEDS: TRAMADOL HCL 50 MG TAB PO PRN ×3 (02:43→15:11)
[2017-06-11] MEDS ORDERED: ASPIRIN 81 MG ECTAB PO STA (03:04)
[2017-06-11] MEDS ORDERED: IV FLUIDS COMPLETED PRN (04:30)
--- NOTE | 2017-06-11 06:51 | HISTORY & PHYSICAL EXAMINATION ---
DATE OF ADMISSION: 06/11/2017 PRIMARY CARE PHYSICIAN: The patient currently has no primary care doctor. CHIEF COMPLAINT: Chest pain. HISTORY OF PRESENT ILLNESS: History obtained from patient and records. 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 situs inversus. As per records recent confinement July 2016 for abdominal pain. Patient has seen [place] [facility] for erythrocytosis. Last visit was September 2016. EPO level noted to be normal; JAK2 mutation, MPL mutations noted to be negative in the past. Bone marrow exam showed normal cellular bone marrow/maturation, no excess blasts. normal chromosomes. As per note, car tester unsure about the exact cause of longstanding issue of erythrocytosis. Second opinion sought. Poor response of nonspecific chest pain to phlebotomies in the past. Patient stopped seeing PCPs from [place], [place] since December 2016. Concerns about drug abuse/diversion as per records. 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 Last few days patient noted burning right-sided chest pain, somewhat hard to breathe. Not worse with exertion. Patient noted these while sightseeing at the [facility]. No abdominal pain. No nausea, no vomiting. A few days ago, patient was notified by [facility] that his hemoglobin was 20 - higher than usual. Patient consulted the Emergency Room. MEDICAL HISTORY: As above. February 2016, patient had a normal stress test. PAST SURGICAL HISTORY: He has had skin surgery, liver transplantation, cholecystectomy. HOME MEDICATIONS: Include Bismuth, Advil, Prograf. ALLERGIES: ACETAMINOPHEN, MIDAZOLAM, PENICILLIN. FAMILY HISTORY: Unknown as patient is adopted. PERSONAL AND SOCIAL HISTORY: Past tobacco abuse, no chronic use of alcoholic beverages. 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 REVIEW OF SYSTEMS: As per HPI, all other ROS negative. PHYSICAL EXAMINATION: VITAL SIGNS: Blood pressure noted to be 112/80, pulse rate 90, RR 20, temperature 36, sats 97 on room air. GENERAL: Noted to be uncomfortable, no respiratory distress. SKIN: Normal color. Warm. HEENT: [place] palpebral conjunctivae. No ptosis. Dry buccal mucosa. NECK: No JVD. Supple. No tenderness. CHEST: Clear to auscultation. No anterior chest tenderness. ABDOMEN: Soft, nontender. EXTREMITIES: No edema, no tenderness. No gross deformities. NEUROLOGIC: Coherent. No gross focality. LABORATORY DATA: Hemoglobin was noted to be 21.5, hematocrit 36.6, white cell count 11, platelets 154. Sodium 140, potassium 3.4, chloride 104, CO2 of 28, BUN 70, creatinine 1, glucose was noted to be 106, AST 41, alkaline phosphatase was noted to be 130, lipase 860. D-dimer was noted to be 154. Chest x-ray showed situs inversus. EKG as per my interpretation, rate 80, right axis deviation, incomplete right bundle block, T wave inversion on the lateral leads. ASSESSMENT: 1. Atypical chest pain possible GERD with burning description ? ischemia with hx of chronic polycythemia 2. Acute on chronic polycythemia Prior hematologic workup unremarkable. Rule out undiagnosed pulmonary hypertension as etio ? Undiagnosed sleep apnea. 3. hx Cirrhosis secondary to biliary atresia, status post liver transplantation on Prograf. 4. Past tobacco abuse. 5. History of drug diversion as per records. 6. Hypokalemia. 7. Hyperlipasemia, unclear significance. Patient not complaining of abdominal pain. 8. Situs inversus PLAN: Observation PCU PPI trial caution with narcotics (history of drug diversion as per records) Hematology consult, worsening polycythemia ER provider already in touch with Dr. Carlisle. Patient may require phlebotomy in the morning as per conversation. ASA for now for thromboprophylaxis with hx polycythemia. TTE RE atypical chest pain, abnormal EKG Outpatient sleep study if TTE shows pulmonary hypertension Replace potassium. Follow lipase. IV fluids. GI consult if w/ progression of hyperlipasemia. DVT prophylaxis, Lovenox subQ. Full code. MTDD
[2017-06-11 07:02] LABS: ALT/SGPT 53 U/L (12-78); BLOOD UREA NITROGEN 17 mg/dl (7-18); BUN/CREATININE RATIO 21.3 (10-20); CALCIUM 8.4 mg/dl (8.5-10.1); CARBON DIOXIDE 26 mmol/L (21-32); CHLORIDE 110 mmol/L (98-107); CREATININE 0.82 mg/dl (0.60-1.40); GLUCOSE 86 mg/dl (70-99); POTASSIUM 3.7 mmol/L (3.5-5.1); SODIUM 143 mmol/L (136-145)
[2017-06-11 07:10] LABS: ALB/GLOB RATIO 1.3 (0.9-2); ALKALINE PHOSPHATASE 91 U/L (45-117); AST/SGOT 26 U/L (15-37)
[2017-06-11] MEDS: TACROLIMUS 1 MG CAP PO SCH ×2 (07:50→20:28)
[2017-06-11] MEDS ORDERED: INFLUENZA ADMINISTRATION CHARGE ONE (08:00)
[2017-06-11] MEDS ORDERED: INFLUENZA VIRUS QUAD VACCINE 0.5 ML SYR IM. ONE (08:00)
[2017-06-11 08:18] LABS: BASO % 0.5 %; BASO ABS # 0.04 K/uL (0-0.2); COMPLETE YES; EOS % 2.3 %; HEMATOCRIT 48.6 % (42-52); IG% 0.2 %; LYMPH % 30.5 %; LYMPH ABS # 2.69 K/uL (1.2-3.4); MEAN CELL VOLUME 83.4 fL (80-100); MEAN CORPUSCULAR HEMOGLOBIN 30.9 pg (25-34); MEAN PLATELET VOLUME 10.2 fL (7.4-10.4); MONO % 8.3 %; NEUT % 58.2 %; PLATELET COUNT 135 K/uL (130-400); RED BLOOD COUNT 5.83 M/uL (4.7-6.1); WHITE BLOOD COUNT 8.81 K/uL (4.8-10.8)
--- NOTE | 2017-06-11 09:08 | Progress Note ---
Internal Med Progress Note Date of Service: Jun 11, 2017. Provider Documentation: SUBJECTIVE: Seen and examined at bedside States having persistent right sided chest pain, burning type without any aggravating/relieving factors Denies cough, SOB on exertion, wheezing, orthopnea, abdominal pain, dizziness No other complaints OBJECTIVE: Vital Signs-as noted below Physical Exam: Vitals signs as noted above General Appearance:Moderately built and nourished, no apparent distress Head: normocephalic, Atraumatic Eyes: normal inspection, EOMI, PERRL Neck: supple, Trachea midline Respiratory/Chest: Normal breath sounds, CTA Cardiovascular: S1, S2, No murmur Abdomen/GI:Soft, Non tender, Bowel sounds present Extremities/Musculoskelatal:normal inspection, no edema Neurologic/Psych:AAOX3, grossly no focal neurological deficits Skin: normal color, warm Lab data as noted below. ASSESSMENT & PLAN: Atypical Chest Pain: Described as burning/sharp constant pain without aggravating/relieving factors Troponin X 2:Negative EKG:ST-T waver changes ECHO: pending CXR:No acute process. Situs inversus Polycythemia could be contributing Continue ASA for now Will consult Cardiology caution with narcotics (H/O drug diversion as per records) Lipase normalized after IV fluids Acute on chronic polycythemia Prior hematologic workup unremarkable Not on any meds at home Heme oncology consulted May need Phlebotomy Hb back to baseline after IVF Discussed with : Suggested to get Phlebotomy x1 (450ml) H/O Situs Inversus 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 DVT px: Lovenox subQ. Code Status Full code Disposition: Expect to discharge home when stable Vital Signs: Date Time Temp Pulse Resp B/P (MAP) Pulse Ox O2 Delivery O2 Flow Rate FiO2 06/11/17 12:00 Room Air 06/11/17 11:01 36.8 74 20 106/71 (83) 96 Room Air 06/11/17 08:00 Room Air 06/11/17 07:49 36.6 73 20 112/75 (87) 96 Room Air 06/11/17 04:04 97 Room Air 06/11/17 02:33 36.7 76 18 134/97 97 Room Air 06/11/17 02:07 76 20 135/91 96 06/11/17 02:00 76 20 135/91 96 Room Air 06/11/17 00:31 73 22 113/84 95 Room Air 06/11/17 00:01 78 24 112/80 95 Room Air 06/10/17 23:31 84 23 125/75 94 Room Air 06/10/17 23:01 81 16 129/93 95 Room Air 06/10/17 22:31 92 24 138/93 96 Room Air 06/10/17 22:09 93 06/10/17 22:00 86 22 140/92 96 Room Air 06/10/17 21:50 100 21 131/94 99 Room Air 06/10/17 21:50 99 Room Air 06/10/17 21:50 99 Room Air 06/10/17 21:34 36.6 104 16 140/88 99 Room Air Lab Results: Results Past 24 Hours Test 06/10/17 21:45 06/10/17 22:18 06/10/17 22:35 06/11/17 06:15 Range/Units White Blood Count 11.37 8.81 4.8-10.8 K/uL Red Blood Count 6.81 5.83 4.7-6.1 M/uL Hemoglobin 21.5 18.0 14.0-18.0 g/dL Hematocrit 56.6 48.6 42-52 % Mean Corpuscular Volume 83.1 83.4 80-100 fL Mean Corpuscular Hemoglobin 31.6 30.9 25-34 pg Mean Corpuscular Hemoglobin Concent 38.0 37.0 32-36 g/dl RDW Standard Deviation 39.3 39.5 36.4-46.3 fL RDW Coefficient of Variation 13.2 13.2 11.5-14.5 % Platelet Count 154 135 130-400 K/uL Mean Platelet Volume 10.4 10.2 7.4-10.4 fL Sodium Level 140 143 136-145 mmol/L Potassium Level 3.4 3.7 3.5-5.1 mmol/L Chloride Level 104 110 98-107 mmol/L Carbon Dioxide Level 28 26 21-32 mmol/L Anion Gap 8.0 7.0 3-11 mmol/L Blood Urea Nitrogen 17 17 7-18 mg/dl Creatinine 1.06 0.82 0.60-1.40 mg/dl Est Creatinine Clear Calc Drug Dose 101.4 131.0 ml/min Estimated GFR () 114.1 144.5 Estimated GFR (Non- 98.4 124.6 BUN/Creatinine Ratio 15.9 21.3 10-20 Random Glucose 108 86 70-99 mg/dl Calcium Level 9.2 8.4 8.5-10.1 mg/dl Magnesium Level 1.9 1.8-2.4 mg/dl Total Bilirubin 1.3 0.8 0.2-1 mg/dl Aspartate Amino Transf (AST/SGOT) 41 26 15-37 U/L Alanine Aminotransferase (ALT/SGPT) 74 53 12-78 U/L Alkaline Phosphatase 123 91 45-117 U/L Troponin I < 0.015 < 0.015 0-0.045 ng/ml Total Protein 7.7 5.7 6.4-8.2 gm/dl Albumin 4.3 3.2 3.4-5.0 gm/dl Globulin 3.4 2.5 2.5-4.0 gm/dl Albumin/Globulin Ratio 1.3 1.3 0.9-2 Lipase 860 161 73-393 U/L Chemistry Specimen Hemolysis Bedside D-Dimer 154 0-450 ng/mlFEU Prothrombin Time 10.7 9.0-12.0 SECONDS Prothromb Time International Ratio 1.0 0.9-1.1 Activated Partial Thromboplast Time 24.7 21.0-31.0 SECONDS Partial Thromboplastin Ratio 1.0 Neutrophils (%) (Auto) 58.2 % Lymphocytes (%) (Auto) 30.5 % Monocytes (%) (Auto) 8.3 % Eosinophils (%) (Auto) 2.3 % Basophils (%) (Auto) 0.5 % Neutrophils # (Auto) 5.13 1.4-6.5 K/uL Lymphocytes # (Auto) 2.69 1.2-3.4 K/uL Monocytes # (Auto) 0.73 0.11-0.59 K/uL Eosinophils # (Auto) 0.20 0-0.5 K/uL Basophils # (Auto) 0.04 0-0.2 K/uL Immature Granulocyte % (Auto) 0.2 % Immature Granulocyte # (Auto) 0.02 0.00-0.02 K/uL Erythrocyte Sedimentation Rate 2 0-14 mm/hr
--- NOTE | 2017-06-11 10:46 | ECHOCARDIOGRAM REPORT ---
*NOTICE TO RECEIVING DEMOCRAT AGENCY This information is strictly Confidential and protected under [place] law. [place] law prohibits you from making any further disclosure of this information unless further disclosure is expressly permitted by the written consent of the person to whom it pertains or is authorized by law. A general authorization for the release of medical or other information is not sufficient for this purpose. Hospital accepts no responsibility if the information is made available to any other person, INCLUDING THE PATIENT. Interpretation Summary * Name: MAGDALENO CORTES Study Date: 06/11/2017 06:27 AM BP: 134/97 mmHg * Patient Location: .2E\S\E209\S\1 HR: 76 * : 1995 (M/d/yyyy) Gender: Male Height: 67 in * Age: 21 yrs Ethnicity: CA Weight: 163 lb * Ordering Physician: Tacos Bañuelos * Referring Physician: Self, Referred * Performed By: Roberta Castañeda RDCS * * Reason For Study: Chest pain * BSA: 1.9 m2 * The study was technically adequate. * There is no comparison study available. * -- Conclusions -- * Situs Inversus noted. * Ejection Fraction = 60-65%. * The left ventricular wall motion is normal. * Pulse wave TDI of the anterior and posterior mitral annulas demonstrates normal LV relaxation * There is no pericardial effusion. * No significant valvular pathology. Procedure Details * A complete two-dimensional transthoracic echocardiogram was performed (2D, M-mode, Doppler and color flow Doppler). Left Ventricle * The left ventricle is normal in size. * Situs Inversus noted. * There is no thrombus. * There is normal left ventricular wall thickness. * Ejection Fraction = 60-65%. * Left ventricular systolic function is normal. * The left ventricular wall motion is normal. Right Ventricle * The right ventricle is normal size. * The right ventricular systolic function is normal as assessed by tricuspid annular plane systolic excursion (TAPSE) (normal >1.5 cm). Atria * The left atrial size is normal. * Right atrial size is normal. * There is no evidence of atrial septal defect, but resolution does not allow assessment for a patent foramen ovale. Mitral Valve * The mitral valve is normal. * There is no mitral valve stenosis. * Significant mitral regurgitation is absent. Tricuspid Valve * The tricuspid valve is normal. * There is no tricuspid stenosis. * Significant tricuspid regurgitation is absent. Aortic Valve * The aortic valve is not well visualized. * Aortic stenosis is absent. * There is no significant aortic regurgitation. Pulmonic Valve * The pulmonary valve is not well seen, but the Doppler examination is normal without significant regurgitation or stenosis. Great Vessels * The aortic root and proximal ascending aorta are normal sized. Pericardium/Pleural * There is no pericardial effusion. Great Vessels * Normal inferior vena cava diameter and respiratory variation suggests normal central venous pressure. Left Ventricular Diastolic Function * Pulse wave TDI of the anterior and posterior mitral annulas demonstrates normal LV relaxation MMode 2D Measurements and Calculations IVSd 0.80 cm LVIDd 4.5 cm LVIDs 3.1 cm LVPWd 0.82 cm IVS/LVPW 0.98 FS 32.3 % EDV(Teich) 93.7 ml ESV(Teich) 36.8 ml EF(Teich) 60.7 % EDV(cubed) 92.7 ml ESV(cubed) 28.8 ml EF(cubed) 69.0 % LV mass(C)d 116.6 grams LV mass(C)dI 62.9 grams/m\S\2 SV(Teich) 56.9 ml SI(Teich) 30.7 ml/m\S\2 SV(cubed) 64.0 ml SI(cubed) 34.5 ml/m\S\2 Ao root diam 3.3 cm Ao root area 8.7 cm\S\2 ACS 2.0 cm LA dimension 2.8 cm asc Aorta Diam 3.1 cm LA/Ao 0.85 LVOT diam 2.0 cm LVOT area 3.1 cm\S\2 LVAd ap4 25.0 cm\S\2 LVLd ap4 8.0 cm EDV(MOD-sp4) 63.9 ml EDV(sp4-el) 66.7 ml LVAs ap4 14.0 cm\S\2 LVLs ap4 6.6 cm ESV(MOD-sp4) 24.7 ml ESV(sp4-el) 25.2 ml EF(MOD-sp4) 61.3 % EF(sp4-el) 62.2 % LVAd ap2 26.6 cm\S\2 LVLd ap2 8.1 cm EDV(MOD-sp2) 73.2 ml EDV(sp2-el) 74.0 ml LVAs ap2 14.5 cm\S\2 LVLs ap2 6.7 cm ESV(MOD-sp2) 29.5 ml ESV(sp2-el) 26.6 ml EF(MOD-sp2) 59.7 % EF(sp2-el) 64.0 % LVLd %diff 2.1 % EDV(MOD-bp) 68.8 ml LVLs %diff 1.2 % ESV(MOD-bp) 26.6 ml EF(MOD-bp) 61.4 % SV(MOD-sp4) 39.2 ml SI(MOD-sp4) 21.1 ml/m\S\2 SV(MOD-sp2) 43.7 ml SI(MOD-sp2) 23.6 ml/m\S\2 SV(MOD-bp) 42.2 ml SI(MOD-bp) 22.8 ml/m\S\2 SV(sp4-el) 41.5 ml SI(sp4-el) 22.4 ml/m\S\2 SV(sp2-el) 47.4 ml SI(sp2-el) 25.5 ml/m\S\2 Doppler Measurements and Calculations MV E max tigre 64.5 cm/sec MV A max tigre 48.5 cm/sec MV E/A 1.3 MV dec time 0.26 sec Ao V2 max 114.0 cm/sec Ao max PG 5.2 mmHg Ao max PG (full) 0.97 mmHg ANDREW(V,A) 2.8 cm\S\2 ANDREW(V,D) 2.8 cm\S\2 LV V1 max PG 4.2 mmHg LV V1 max 102.8 cm/sec PA V2 max 97.7 cm/sec PA max PG 3.8 mmHg PA acc slope 422.3 cm/sec\S\2 PA acc time 0.16 sec PA pr(Accel) 6.1 mmHg
[2017-06-11] MEDS: ENOXAPARIN 40 MG/0.4 ML SYR SC SCH (11:29)
--- NOTE | 2017-06-11 13:12 | CARDIOLOGY CONSULTATION ---
DATE OF CONSULTATION: 06/11/2017 REFERRING PHYSICIAN: Dr. Chacorta Murphy. REASON FOR CONSULTATION: Chest pain. HISTORY OF PRESENT ILLNESS: Mr. Allen is a 21-year-old male presented to the Emergency Department with approximately 6 days of right-sided chest discomfort described as a burning. The severity of the pain ranges from 4-5/10 and has been present since Monday. The patient was vacationing in [place] last week when the pain began. The discomfort was not precipitated by activity or exercise. He had been seen previously by cardiology in 2014 for episode of right-sided chest pain. At that time, an exercise stress echo was performed, demonstrating no evidence of inducible ischemia. He has been treated overnight with intravenous fluids, subcutaneous Lovenox, and aspirin. His hemoglobin has improved from 21-18 with hydration. Today, he states that the pain is somewhat different in character; however, remains 4-5/10. The pain is not positional, although it is somewhat worse when he lies on his stomach. Denies orthopnea, PND, or lower extremity edema. Denies any alcohol or illicit drug use. He does not smoke cigarettes. Notes no change in his functional capacity. Offers no other complaints at this time. REVIEW OF SYSTEMS: The pertinent positive noted above, a comprehensive 10-system review is otherwise negative. PAST MEDICAL HISTORY: 1. Dextrocardia with situs inversus. 2. 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 3. Chronic immunosuppressive therapy. 4. Polycythemia with prior requirements for phlebotomy. PAST SURGICAL HISTORY: 1. EGD. 2. Liver transplant. 3. Skin biopsy. 4. Liver biopsy. 5. Colonoscopy. ALLERGIES: PENICILLIN AND VERSED. FAMILY HISTORY: Negative for premature CAD or sudden cardiac . SOCIAL HISTORY: Chart history of drug diversion. He denies alcohol, drug use, or tobacco use. CURRENT OUTPATIENT MEDICATIONS: 1. Oxycodone IR 5 mg every 4 hours as needed. 2. Triamcinolone cream. 3. Zofran 4 mg daily. 4. Prograf 1 pill twice daily. LABORATORY DATA: Hemoglobin on admission 21.5 with a white blood cell count of 11.37 and a platelet count of 154. White blood cell count 8.81 and hemoglobin is 18.0 this morning with a platelet count of 135. Sodium 143, potassium 3.7, chloride 110, CO2 is 26, BUN 17, and creatinine 0.82. AST and ALT within normal limits. Lipase initially 860 with a repeat lipase of 161. EKG on admission demonstrates situs inversus. Cardiac enzymes are undetectable. Telemetry demonstrates sinus rhythm. Chest x-ray demonstrates dextrocardia. Otherwise, no acute cardiopulmonary findings. Resting 2D transthoracic echo demonstrates situs inversus with normal left ventricular wall motion, no significant valvular disease, and no evidence of pulmonary hypertension. PHYSICAL EXAMINATION: VITAL SIGNS: The patient is afebrile, heart rate is 70 beats per minute and regular, blood pressure 106/71, and SaO2 is 96% on room air. GENERAL: NAD, awake, alert and oriented x3. HEENT: His mucous membranes are moist. No scleral icterus. Conjunctivae pink. NECK: Supple. There is no JVD or HJR. No carotid bruit. HEART: Regular with a normal S1 and S2. No murmur, rub, or gallop. LUNGS: Clear without rales, rhonchi or wheeze. ABDOMEN: Soft and nontender. No rebound or guarding. Normal bowel sounds. EXTREMITIES: Warm and dry without clubbing, cyanosis or edema. NEUROLOGIC: Demonstrates no focal deficit. FINAL IMPRESSION: A 21-year-old male presents with atypical right-sided chest burning of approximately 6 days' duration. Cardiac enzymes, ECG, and echocardiogram without objective evidence of ischemia. Situs inversus in general does not reflect a pathological cardiac anomaly. His risk for premature ischemic heart disease is low, although he has been on immunosuppressive therapy throughout most of his life due to history of liver transplant. Concerns about symptoms related to polycythemia also noted. Symptoms did not seem to have changed significantly with improvement of hemoglobin with hydration overnight. PLAN AND RECOMMENDATIONS: I had a long discussion with the patient regarding his atypical discomfort and negative ischemic workup thus far. I will await input from hematology regarding need for possible phlebotomy. We will await hematology input for further recommendations. Ultimately, we will proceed with exercise stress echocardiography for further risk stratification. Continue aspirin at this time. Thank you for allowing me to take part in the care of your patient. VICKEY
[2017-06-11] MEDS ORDERED: NURSING VERBAL MED ORDER ONE (17:45)
[2017-06-11] MEDS ORDERED: MoRPHine SULFATE 2 MG/ML CARP IV STA (18:10)
[2017-06-12 00:04] VITALS: O2SAT 95
[2017-06-12] MEDS: TRAMADOL HCL 50 MG TAB PO PRN (00:04)
[2017-06-12 04:10] VITALS: O2SAT 95
[2017-06-12 04:32] VITALS: BP 105/56; PULSE 80; TEMP 36.5; O2SAT 96
[2017-06-12 07:14] LABS: BUN/CREATININE RATIO 14.7 (10-20); CALCIUM 8.8 mg/dl (8.5-10.1); CREATININE 0.81 mg/dl (0.60-1.40); MAGNESIUM 1.8 mg/dl (1.8-2.4); POTASSIUM 3.7 mmol/L (3.5-5.1)
[2017-06-12] MEDS: TACROLIMUS 1 MG CAP PO SCH (07:14)
[2017-06-12] MEDS: ENOXAPARIN 40 MG/0.4 ML SYR SC SCH (07:15)
[2017-06-12 07:53] VITALS: BP 99/62; PULSE 67; TEMP 36.6; O2SAT 95
[2017-06-12 07:56] LABS: BASO % 0.4 %; BASO ABS # 0.04 K/uL (0-0.2); COMPLETE YES; EOS % 2.7 %; HEMATOCRIT 52.4 % (42-52); IG% 0.3 %; LYMPH % 18.9 %; LYMPH ABS # 1.79 K/uL (1.2-3.4); MEAN CELL VOLUME 83.4 fL (80-100); MEAN CORPUSCULAR HEMOGLOBIN 31.4 pg (25-34); MEAN CORPUSCULAR HGB CONC 37.6 g/dl (32-36); MEAN PLATELET VOLUME 10.3 fL (7.4-10.4); MONO % 12.3 %; NEUT % 65.4 %; PLATELET COUNT 131 K/uL (130-400); RED BLOOD COUNT 6.28 M/uL (4.7-6.1); WHITE BLOOD COUNT 9.49 K/uL (4.8-10.8)
--- NOTE | 2017-06-12 08:09 | Progress Note ---
Internal Med Progress Note Date of Service: Jun 12, 2017. Provider Documentation: SUBJECTIVE: Seen and examined at bedside Reports persistent right sided chest pain Reports his breathing is better today Had Phlebotomy done yesterday Denies cough, SOB on exertion, wheezing, orthopnea, abdominal pain, dizziness No other complaints OBJECTIVE: Vital Signs-as noted below Physical Exam: Vitals signs as noted above General Appearance:Moderately built and nourished, no apparent distress Head: normocephalic, Atraumatic Eyes: normal inspection, EOMI, PERRL Neck: supple, Trachea midline Respiratory/Chest: Normal breath sounds, CTA Cardiovascular: S1, S2, No murmur Abdomen/GI:Soft, Non tender, Bowel sounds present Extremities/Musculoskelatal:normal inspection, no edema Neurologic/Psych:AAOX3, grossly no focal neurological deficits Skin: normal color, warm Lab data as noted below. ASSESSMENT & PLAN: Atypical Chest Pain: Described as burning/sharp constant pain without aggravating/relieving factors Troponin X 2:Negative EKG:chronic ST-T waver changes ECHO: Normal Left ventricular wall motion CXR:No acute process. Situs inversus Polycythemia could be contributing Continue ASA for now Appreciate Cardiology Input ESR, CRP normal caution with narcotics (H/O drug diversion as per records) Lipase normalized after IV fluids Patient prefers to get stress test as outpatient Acute on chronic polycythemia Prior hematologic workup unremarkable Not on any meds at home Heme oncology consulted Discussed with : Suggested to get Phlebotomy x1 (450ml) S/P phlebotomy on 06/11/17 S/P IV fluids Hb: 19.7 today Currently no further plans for treatment per Heme Oncology Needs follow up with in 2-3 weeks as outpatient H/O Situs Inversus 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 DVT px: Lovenox subQ. Code Status Full code Disposition: Expect to discharge home when stable Follow up with your Primary Care Physician on 2016 at 12: 45pm Follow up with your Heme-Oncologist in 2 weeks as advised Follow up with your [employer] for stress test as outpatient in 2 weeks PROCEDURES: ECHO; * Situs Inversus noted. * Ejection Fraction = 60-65%. * The left ventricular wall motion is normal. * Pulse wave TDI of the anterior and posterior mitral annulas demonstrates normal LV relaxation * There is no pericardial effusion. * No significant valvular pathology. Vital Signs: Date Time Temp Pulse Resp B/P (MAP) Pulse Ox O2 Delivery O2 Flow Rate FiO2 06/12/17 08:00 Room Air 06/12/17 07:53 36.6 67 20 99/62 (74) 95 Room Air 06/12/17 04:32 36.5 80 20 105/56 (72) 96 Room Air 06/12/17 04:10 95 Room Air 06/12/17 00:04 95 Room Air 06/11/17 23:56 36.6 90 19 109/68 (82) 96 Room Air 06/11/17 20:00 95 Room Air 06/11/17 19:30 36.7 78 18 122/78 (93) 95 Room Air 06/11/17 16:00 Room Air 06/11/17 15:55 36.6 79 18 111/84 (93) 95 Room Air 06/11/17 12:00 Room Air 06/11/17 11:01 36.8 74 20 106/71 (83) 96 Room Air Lab Results: Results Past 24 Hours Test 06/12/17 06:08 Range/Units White Blood Count 9.49 4.8-10.8 K/uL Red Blood Count 6.28 4.7-6.1 M/uL Hemoglobin 19.7 14.0-18.0 g/dL Hematocrit 52.4 42-52 % Mean Corpuscular Volume 83.4 80-100 fL Mean Corpuscular Hemoglobin 31.4 25-34 pg Mean Corpuscular Hemoglobin Concent 37.6 32-36 g/dl Platelet Count 131 130-400 K/uL Mean Platelet Volume 10.3 7.4-10.4 fL Neutrophils (%) (Auto) 65.4 % Lymphocytes (%) (Auto) 18.9 % Monocytes (%) (Auto) 12.3 % Eosinophils (%) (Auto) 2.7 % Basophils (%) (Auto) 0.4 % Neutrophils # (Auto) 6.20 1.4-6.5 K/uL Lymphocytes # (Auto) 1.79 1.2-3.4 K/uL Monocytes # (Auto) 1.17 0.11-0.59 K/uL Eosinophils # (Auto) 0.26 0-0.5 K/uL Basophils # (Auto) 0.04 0-0.2 K/uL RDW Standard Deviation 39.6 36.4-46.3 fL RDW Coefficient of Variation 13.2 11.5-14.5 % Immature Granulocyte % (Auto) 0.3 % Immature Granulocyte # (Auto) 0.03 0.00-0.02 K/uL Sodium Level 139 136-145 mmol/L Potassium Level 3.7 3.5-5.1 mmol/L Chloride Level 105 98-107 mmol/L Carbon Dioxide Level 26 21-32 mmol/L Anion Gap 8.0 3-11 mmol/L Blood Urea Nitrogen 12 7-18 mg/dl Creatinine 0.81 0.60-1.40 mg/dl Est Creatinine Clear Calc Drug Dose 132.6 ml/min Estimated GFR () 145.2 Estimated GFR (Non- 125.3 BUN/Creatinine Ratio 14.7 10-20 Random Glucose 93 70-99 mg/dl Calcium Level 8.8 8.5-10.1 mg/dl Magnesium Level 1.8 1.8-2.4 mg/dl C-Reactive Protein < 0.29 0-0.29 mg/dl
[2017-06-12] MEDS ORDERED: ASPIRIN 81 MG ECTAB PO SCH (09:00)
[2017-06-12] MEDS ORDERED: PANTOprazole SOD 40 MG TAB PO SCH (09:00)
[2017-06-12] MEDS ORDERED: MAGNESIUM CHLORIDE 64MG DELAYED REL TAB PO SCH (10:00)
[2017-06-12] MEDS ORDERED: POTASSIUM CHLORIDE 10 MEQ TABCR PO ONE (10:00)
[2017-06-12] MEDS ORDERED: MoRPHine SULFATE IR 15 MG TAB (IMMEDIATE RELEASE) PO ONE (10:15)
--- NOTE | 2017-06-12 10:21 | CARDIOLOGY PROGRESS NOTE ---
DATE: 06/12/2017 HISTORY OF PRESENT ILLNESS: The patient is seen and examined at the bedside. He is resting comfortably. Notes relief of chest discomfort with intravenous morphine. No dysrhythmia is on telemetry. Chronic right-sided chest discomfort, not affected by activity. No significant elevation of CRP or ESR. Resting 2D transthoracic echo demonstrates normal wall motion. REVIEW OF SYSTEMS: The pertinent positives noted above and a 4-system review included cardiovascular, pulmonary, vasculature, and neurologic systems otherwise negative. LABORATORY DATA: White blood cell count 9.49, hemoglobin is 18.7, platelet count is 131. INR is 1.0. PHYSICAL EXAMINATION: VITAL SIGNS: Temperature 36.6 degrees centigrade, pulse 67 beats per minute and regular, respiratory rate is 20 breaths per minute, blood pressure 105/56 and SaO2 is 95% on room air. GENERAL: NAD, healthy appearing, awake, alert and oriented x3. THROAT: His mucous membranes are moist. There is no scleral icterus. Conjunctivae are pink. NECK: Supple. There is no JVD, no HJR, no carotid bruit. HEART: Regular with a normal S1 and S2. There is no murmur, rub, or gallop. LUNGS: Clear without rales, rhonchi or wheeze. ABDOMEN: Soft, nontender. No rebound or guarding. Normal bowel sounds. EXTREMITIES: Warm and dry. No clubbing, cyanosis, or edema. NEUROLOGIC: Demonstrates no focal motor deficit. FINAL IMPRESSION: 1. Atypical chest discomfort. 2. Polycythemia. 3. Dextrocardia. PLAN AND RECOMMENDATIONS: The patient has been seen by hematology. Phlebotomy did not result in improvement in hemoglobin. Further treatment of polycythemia per their recommendations. From a cardiovascular standpoint, I have recommended an exercise stress echocardiography for further evaluation of atypical discomfort. The patient declines further inpatient testing at this time. I will arrange for outpatient stress echocardiography to be performed. He will continue low dose aspirin. Encouraged hydration. Repeat a.m. ECG and CRP pending at this time. Thus far, there has been no objective evidence of pericarditis. [facility]
[2017-06-12] MEDS ORDERED: KETO10TA PO (10:39)
[2017-06-12] MEDS ORDERED: ASPEC81 PO (10:39)
--- NOTE | 2017-06-12 10:39 | Medical Consult ---
Consultation Date of Consultation: Jun 12, 2017. Attending Physician: Chacorta Murphy MD History of Present Illness Hematology/Oncology consult: Evaluation management of erythrocytosis, a known case of liver transplant recipient. Date of consultation: 06/12/2017 HPI: 21-year-old male, who is known to hematology service for elevated hemoglobin/hematocrit level, he had an extensive workup in the past, no obvious hematological disorder identified, JAK2 mutation negative, bone marrow examination showed normal findings, no abnormal mutations identified, no splenomegaly on a several imaging studies, he had a phlebotomy in the past, last phlebotomy was done somewhere in January,, he says that he is having intermittent the right-sided chest pain which did not respond well with the phlebotomy which was done in the past, now he is admitted for once again similar pain going on for the last 1 week duration, mainly on right side, he says that it is deep chest pain, no muscle pain, more burning pain like sensation, no nausea, no vomiting, not associated increasing shortness of breath , no increasing coughing, no fever, denies any abdominal symptoms, no leg edema. No bleeding from any sites. Ambulating well by himself. He works full- time at the [employer]. From a previous office visit note: Workup for erythrocytosis as follows: ~ Earlier he had mild microcytic anemia with hemoglobin around 10 g/dL with MCV of 78 with normal White blood cell count and the platelet count in 5631-0720. ~ Hemoglobin level increased from 16.4, hematocrit was 48 in 2003, since then it has remained on the higher side on most occasions, the highest~~hematocrit level was around 54 in 2008, 56 in September,. Normal White blood cell count and Normal platelet count noted over the last 10 years. ~ Presently he is not on any oral iron replacement therapy, no history of blood donation in the past, no thrombotic complications the past, not on aspirin therapy, not on any anticoagulant Treatment. 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 ~ He is also a case of situs inversus since the . ~ ~he says that when he turned 16, he could not get immunosuppressive therapy because of lack of insurance and so he was off the immunosuppressive agents during that time, he was admitted in the hospital for worsening liver function test and jaundice in early 2014 but now since then he is on immunosuppressive therapy with the tacrolimus on the regular basis. ~ History of smoking present in the past, history of chewing tobacco present in the past, he discontinued both habits about 3 years back. ~ -EPO level--> 9.7 (Normal value would be between 3.7-31.5, 08/2013) -Ferritin level--> 140 (10/2013). ~ -EPO level--> 11.6 (12/2015). -ALICIA 2 mutation--> negative (01/2016) -MPL mutation--> negative. ~ Bone marrow examination done on 06/08/2016: -Normal cellular bone marrow with multilineage maturation, no excess blast, reduced iron stores noted. Normal male chromosome noted. ~ Following mutations reported to be negative: ABL1, ASXL1, BRAF, CALR, CEBPA, CSF3R, EZH2, FLT3, HRAS, IDH1, IDH2, JAK2 V617F, JAK2 Exon 12+14, KIT, KRAS, MPL , NPM1, NRAS, PDGFRA, PTEN, PTPN11, SETBP1, SRSF2, TET2 and U2AF1. ~ ~ He had a phlebotomy every other week x3 earlier in February, but he says that he did not feel any different after that, his main problem is right-sided chest pain for the last several months, perhaps beginning of this year, had several ER visits for that, I reviewed those records from [facility] as well as [facility], D-dimer was normal, no evidence of pulmonary embolism, no dissection of aorta noted, situs inversus noted, normal liver findings noted, no bony changes reported. 2nd opinion: He was also seen by hospital aides and assistants [facility] (Dr[facility] Mach[facility]) when he was admitted earlier at the hospital in October,, at that time recommended to have outpatient red cell mass evaluation. If he has true polycythemia, they recommended to have phlebotomy to keep the hematocrit less than 50. -he did not have red cell mass evaluation (done at the nuclear Medicine at [facility]) -MRI of the liver done on 11/29/2016 showed S/P liver transplant, no focal liver lesion. -CT scan of the abdomen pelvis done on 12/12/2016 showed no new suspicious findings, patent portal and hepatic veins. Complete situs inversus noted. Normal liver and spleen noted. -WBC 02578, H&H of 19/51, MCV 82, Platelet count of 210,000 (04/06/2017) -WBC 9700, H&H of 20.3/55.5, MCV 82, Platelet count of 168,000 (06/09/2017). Last phlebotomy was done in January,. REVIEW OF SYSTEMS: GENERAL: No change in weight, slight weakness and fatigue present, no fever, sweats or chills. SKIN: No skin rash, no bruising. HEAD: No new headache, no dizziness. EYES: No recent change in the vision, no diplopia, EARS: No earache no tinnitus, NOSE: No epistaxis, No nasal discharge or stuffiness, MOUTH: No sores, no dysphagia, no hoarseness of voice, NECK: No lumps, No swelling in thyroid area. No stiffness. PULMONARY: No cough, No shortness of breath, no hemoptysis, right-sided intermittent chest pain, No wheezing. CARDIOVASCULAR: No anginal chest pain, no PND, no orthopnea. No palpitation, no leg edema. No syncope. GASTROINTESTINAL: No abdominal pain, no nausea or vomiting. No diarrhea, No constipation. No blood in stool or black tarry stools. No abdominal distention. UROLOGIC: No burning urination. No hematuria. MUSCULOSKELETAL: No joint pain, No joint swelling, no muscle weakness. HEMATOLOGIC: No anemia, no bleeding disorder, No bruising. No history of blood transfusion. NEUROLOGIC: No seizures, no focal weakness, no speech difficulty, No memory disturbances. No tingling or numbness of the extremities. PSYCHIATRIC: No depression. No anxiety. No psychosis. SLEEP: No sleep disorder. He denies any increasing snoring, no definite history of sleep apnea. Past medical and surgical history: - biliary atresia, S/P the liver transplant at the age of 6 months. -he is on chronic immunosuppressive therapy since the liver transplant. -dextrocardia with situs inversus Social history: Nonsmoker, denies any ETOH abuse. He discontinue smoking habit Family history: Not significant Medications: Please review his chart for detailed list of medications. He is on Prograf twice a day, takes oxycodone on p.r.n. basis Allergies:Penicillin and Versed On exam: - Alert and oriented x3, well built man, not in any distress. - HEENT: no icterus, no pallor, Throat: Normal. - Neck: No palpable cervical lymphadenopathy. - Chest: clear to auscultation. - Abdomen: soft, nontender, no hepatomegaly, no splenomegaly. - No focal neuro deficit. - Extremities: no finger clubbing, no leg edema. Lab: -WBC 43554, H&H of 21.5/56.6, Platelet count of 154,000 (06/10/2017). - hemoglobin/hematocrit dropped down to around 18/48.6 with the IV hydration on the following day. -had a phlebotomy x1 on 06/11/2017 (about 450 mL). -WBC 9400, H&H of 19.7/52.4, Platelet count of 131,000 (06/12/2017) -BUN/Creat: 17/1.0, AST 41, ALT 74, alkaline phosphatase is 123, Total bilirubin: 1.3. -PT 10.7, PTT 24.7. -D-dimer level--> 154 which is in normal range Imaging: - CT chest in 01/2016 when he had similar pain, NO PE or other suspicious findings noted. -Chest x-ray done on 06/10/2017--> no acute process, situs inversus noted. EKG showed situs inversus. Cardiac enzymes unremarkable. Resting 2 D echo shows situs inversus, normal left ventricular motion, no significant valvular disease, no evidence of pulmonary hypertension. ASSESSMENT AND PLAN: 21-year-old male, a case of liver transplant recipient at the age of 4, he is on chronic immunosuppressive therapy since then, also noticed to have elevated hemoglobin/hematocrit in 2004, since then it has remained on the higher side, had an extensive workup, no obvious cause identified, no primary hematological disorder identified so far, EPO level normal, ALICIA 2 mutation normal, bone marrow examination revealed no specific underlying bone marrow disorder, no splenomegaly on a several imaging studies done over the last few years, has persistent erythrocytosis, normal white blood cell count, normal platelet count. He was also seen by hospital aides and assistants teacher at [facility] for 2nd opinion when he was admitted over there in October,, suggested red blood cell mass index checkup by the nuclear medicine but he did not have that. Now he is admitted for once again similar right-sided chest pain for the last one week, significantly elevated hemoglobin/hematocrit noted, normal D-dimer level, so far normal cardiac workup, had a IV hydration, improvement of the hematocrit level noted, phlebotomy x1 done on 06/11/2017, repeat blood workup shows once again persistently elevated hemoglobin and hematocrit. Normal liver function test. He says that his pain has improved with some extent, otherwise he is doing quite well. He had a phlebotomy in the past, last phlebotomy was done in January,, he did not have any significant changes in the right-sided chest pain at that time. I do not think the polycythemia is the cause of his ongoing intermittent chest pain on the right side. I think go we should proceed with nuclear Medicine testing for RBC volume once he is discharged from the hospital. Will see him in the office following discharge. Dr. David Carlisle Hem/Onc (This note was completed using the dictation program Fluency Direct. As such, there may be misspellings, word substitutions, or other variations that should not change the essence of the clinical content of this encounter note. If there is need for further clarification, please direct questions to the provider listed above.) Past Medical/Surgical History Medical Problems: (1) Abdominal pain, left lower quadrant Status: Acute (2) Abnormal ECG Status: Acute (3) Alcoholic intoxication Status: Acute (4) Anxiety Status: Acute (5) Anxiety Status: Acute (6) Dehydration Status: Acute (7) Diarrhea Status: Acute (8) Elevated liver enzymes Status: Acute (9) Encounter for removal of vascular catheter Status: Acute (10) Immunosuppression Status: Acute (11) Influenza-like symptoms Status: Acute (12) Injury of left foot Status: Acute (13) Intractable abdominal pain Status: Acute (14) Left against medical advice Status: Acute (15) Left sided chest pain Status: Acute (16) Leukocytosis Status: Acute (17) LUQ abdominal pain Status: Acute (18) LUQ abdominal pain Status: Acute (19) LUQ pain Status: Acute (20) Malingering Status: Acute (21) Non-cardiac chest pain Status: Acute (22) Opiate withdrawal Status: Acute (23) Orthostasis Status: Acute (24) Precordial chest pain Status: Acute (25) Substernal precordial chest pain Status: Acute (26) Transaminitis Status: Acute (27) Upper respiratory infection Status: Acute (28) Urinary retention Status: Acute (29) Urinary retention Status: Acute Social History Problems: (1) History of liver transplant Status: Acute Family History No pertinent family history Social History Smoking Status: Never Smoker Drug Use: none Marital Status: single Housing Status: lives with family Occupation Status: employed, student Allergies Coded Allergies: Penicillins (Verified Allergy, Unknown, ., 11/01/16) Midazolam (Verified Adverse Reaction, Intermediate, "PARANOIA", 11/01/16) Acetaminophen (Unverified Adverse Reaction, Unknown, "AFFECTS MY LIVER", ) Current Inpatient Medications Current Inpatient Medications Medications (Trade) Dose Ordered Sig/Timi Route Start Time Stop Time Status Last Admin Dose Admin Enoxaparin Sodium (Lovenox Inj) 40 mg Q24H SC 06/11/17 09:00 07/11/17 08:59 06/12/17 07:15 40 MG Tacrolimus (Prograf Cap) 2 mg BID PO 06/11/17 09:00 07/11/17 08:59 06/12/17 07:14 2 MG Pantoprazole Sodium (Protonix Tab) 40 mg QAM PO 06/12/17 09:00 07/12/17 08:59 06/12/17 07:14 40 MG Tramadol HCl (Ultram Tab) 25 mg Q6H PRN PO 06/11/17 01:45 07/11/17 01:44 06/12/17 00:04 25 MG Aspirin (Ecotrin Tab) 81 mg QAM PO 06/12/17 09:00 07/12/17 08:59 06/12/17 07:14 81 MG Miscellaneous (Iv Fluids Completed) 1 ea PRN PRN N/A 06/11/17 04:30 06/11/18 04:29 06/11/17 06:27 1 EA Magnesium Chloride (Slow-Mag Tab) 64 mg BID PO 06/12/17 10:00 06/13/17 09:59 Ketorolac Tromethamine (Toradol Inj) 15 mg 1100 ONCE IV 06/12/17 11:00 06/12/17 11:01 Physical Exam Date Time Temp Pulse Resp B/P (MAP) Pulse Ox O2 Delivery O2 Flow Rate FiO2 06/12/17 08:00 Room Air 06/12/17 07:53 36.6 67 20 99/62 (74) 95 Room Air 06/12/17 04:32 36.5 80 20 105/56 (72) 96 Room Air 06/12/17 04:10 95 Room Air 06/12/17 00:04 95 Room Air 06/11/17 23:56 36.6 90 19 109/68 (82) 96 Room Air 06/11/17 20:00 95 Room Air 06/11/17 19:30 36.7 78 18 122/78 (93) 95 Room Air 06/11/17 16:00 Room Air 06/11/17 15:55 36.6 79 18 111/84 (93) 95 Room Air 06/11/17 12:00 Room Air 06/11/17 11:01 36.8 74 20 106/71 (83) 96 Room Air Laboratory Results Last 24 Hours Test 06/12/17 06:08 White Blood Count 9.49 K/uL Red Blood Count 6.28 M/uL Hemoglobin 19.7 g/dL Hematocrit 52.4 % Mean Corpuscular Volume 83.4 fL Mean Corpuscular Hemoglobin 31.4 pg Mean Corpuscular Hemoglobin Concent 37.6 g/dl Platelet Count 131 K/uL Mean Platelet Volume 10.3 fL Neutrophils (%) (Auto) 65.4 % Lymphocytes (%) (Auto) 18.9 % Monocytes (%) (Auto) 12.3 % Eosinophils (%) (Auto) 2.7 % Basophils (%) (Auto) 0.4 % Neutrophils # (Auto) 6.20 K/uL Lymphocytes # (Auto) 1.79 K/uL Monocytes # (Auto) 1.17 K/uL Eosinophils # (Auto) 0.26 K/uL Basophils # (Auto) 0.04 K/uL RDW Standard Deviation 39.6 fL RDW Coefficient of Variation 13.2 % Immature Granulocyte % (Auto) 0.3 % Immature Granulocyte # (Auto) 0.03 K/uL Sodium Level 139 mmol/L Potassium Level 3.7 mmol/L Chloride Level 105 mmol/L Carbon Dioxide Level 26 mmol/L Anion Gap 8.0 mmol/L Blood Urea Nitrogen 12 mg/dl Creatinine 0.81 mg/dl Est Creatinine Clear Calc Drug Dose 132.6 ml/min Estimated GFR () 145.2 Estimated GFR (Non- 125.3 BUN/Creatinine Ratio 14.7 Random Glucose 93 mg/dl Calcium Level 8.8 mg/dl Magnesium Level 1.8 mg/dl C-Reactive Protein < 0.29 mg/dl
--- NOTE | 2017-06-12 10:43 | Discharge Summary ---
Discharge Summary Date of Service Jun 12, 2017. Discharge Summary Admission Date: Jun 11, 2017 at 01:30 Discharge Date: Jun 12, 2017 Discharge Disposition: Home Principal Diagnosis: Chest Pain Procedures: CXR: :No acute process. Situs inversus. ECHO: * Situs Inversus noted. * Ejection Fraction = 60-65%. * The left ventricular wall motion is normal. * Pulse wave TDI of the anterior and posterior mitral annulas demonstrates normal LV relaxation * There is no pericardial effusion. * No significant valvular pathology. Consultations: Cardiology, Heme oncology Pending Studies/Follow-Up: Follow up with your Primary Care Physician on 2016 at 12: 45pm Follow up with your Heme-Oncologist in 2 weeks as advised Follow up with your Local Driver for stress test as outpatient in 2 weeks Seek immediate medical attention if your symptoms reoccur or worsen Medication Reconciliation New Medications: Ketorolac Tromethamine (Toradol) 10 Mg Tab 10 MG PO Q6H PRN for Pain for 3 Days, #12 TAB Aspirin (Aspirin EC Low Dose) 81 Mg Ectab 81 MG PO QAM for 30 Days, #30 EA Continued Medications: Bismuth Subsalicylate (Pepto-Bismol Susp) 30 Ml/524 Mg Susp 15 ML PO Q6 PRN for Indigestion Tacrolimus (Prograf) 1 Mg Cap 2 MG PO BID, CAP Triamcinolone Acet (Aristocort 0.1%) 90 Appln/30 Gm Cr 1 APPLN TOP BID PRN for Itching APPLY TOPICALLY TO AFFECTED AREA DIRECTED Discontinued Medications: Ibuprofen Tab (Advil) 200 Mg Tab 400 MG PO UD PRN for Pain or Fever, TAB Admission Information HPI (per Admitting provider): CHIEF COMPLAINT: Chest pain. HISTORY OF PRESENT ILLNESS: History obtained from patient and records. 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 situs inversus. As per records recent confinement July 2016 for abdominal pain. Patient has seen by [facility] Hematology outpatient for erythrocytosis. Last visit was September 2016. EPO level noted to be normal; JAK2 mutation, MPL mutations noted to be negative in the past. Bone marrow exam showed normal cellular bone marrow/maturation, no excess blasts. normal chromosomes. As per note, car worker helper unsure about the exact cause of longstanding issue of erythrocytosis. Second opinion sought. Poor response of nonspecific chest pain to phlebotomies in the past. Patient stopped seeing PCPs from [place], [place] since December 2016. Concerns about drug abuse/diversion as per records. 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 Last few days patient noted burning right-sided chest pain, somewhat hard to breathe. Not worse with exertion. Patient noted these while sightseeing at the [employer]. No abdominal pain. No nausea, no vomiting. A few days ago, patient was notified by [facility] that his hemoglobin was 20 - higher than usual. Patient consulted the Emergency Room. Physical Exam (per Admitting): PHYSICAL EXAMINATION: VITAL SIGNS: Blood pressure noted to be 112/80, pulse rate 90, RR 20, temperature 36, sats 97 on room air. GENERAL: Noted to be uncomfortable, no respiratory distress. SKIN: Normal color. Warm. HEENT: [place] palpebral conjunctivae. No ptosis. Dry buccal mucosa. NECK: No JVD. Supple. No tenderness. CHEST: Clear to auscultation. No anterior chest tenderness. ABDOMEN: Soft, nontender. EXTREMITIES: No edema, no tenderness. No gross deformities. NEUROLOGIC: Coherent. No gross focality. Hospital Course Atypical Chest Pain: Described as burning/sharp constant pain without aggravating/relieving factors Troponin X 2:Negative EKG:chronic ST-T waver changes ECHO: Normal Left ventricular wall motion CXR:No acute process. Situs inversus Polycythemia could be contributing Continue ASA for now Appreciate Cardiology Input ESR, CRP normal caution with narcotics (H/O drug diversion as per records) Lipase normalized after IV fluids Patient prefers to get stress test as outpatient Acute on chronic polycythemia Prior hematologic workup unremarkable Not on any meds at home Heme oncology consulted Discussed with : Suggested to get Phlebotomy x1 (450ml) S/P phlebotomy on 06/11/17 S/P IV fluids Hb: 19.7 today Currently no further plans for treatment per Heme Oncology Needs follow up with in 2-3 weeks as outpatient H/O Situs Inversus 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 DVT px: Lovenox subQ. Code Status Full code Disposition: Expect to discharge home when stable Follow up with your Primary Care Physician on 2016 at 12: 45pm Follow up with your Heme-Oncologist in 2 weeks as advised Follow up with your Local Driver for stress test as outpatient in 2 weeks PROCEDURES: ECHO; * Situs Inversus noted. * Ejection Fraction = 60-65%. * The left ventricular wall motion is normal. * Pulse wave TDI of the anterior and posterior mitral annulas demonstrates normal LV relaxation * There is no pericardial effusion. * No significant valvular pathology. Total time spent on discharge = This includes examination of the patient, discharge planning, medication reconciliation, and communication with other providers. Discharge Instructions Discharge Instructions Date of Service Jun 12, 2017. Admission Reason for Admission: Substernal Precordial Chest Pain Discharge Discharge Diagnosis / Problem: Chest Pain Discharge Goals Goal(s): Decrease discomfort, Improve function Activity Recommendations Activity Limitations: per Instructions/Follow-up section Lifting Limitations: gradually increase as tolerated (After follow up with your news broadcaster) Exercise/Sports Limitations: gradually increase as tolerated (After follow up with your news broadcaster) . Instructions / Follow-Up Instructions / Follow-Up Follow up with your Primary Care Physician on 2016 at 12: 45pm Follow up with your Heme-Oncologist in 2 weeks as advised Follow up with your Local Driver for stress test as outpatient in 2 weeks Seek immediate medical attention if your symptoms reoccur or worsen Current Hospital Diet Patient's current hospital diet: Regular Diet Discharge Diet Recommended Diet: Regular Diet Pending Studies Studies pending at discharge: no Work Instructions Additional Instructions: You have been admitted at [facility] on 06/11/17 and discharged on 06/12/17 Medical Emergencies . Who to Call and When: Medical Emergencies: If at any time you feel your situation is an emergency, please call 911 immediately. . Non-Emergent Contact Non-Emergency issues call your: Primary Care Provider, Local Driver Call Non-Emergent contact if: you have a fever, your pain is not controlled, your pain is worsening, your pain is unusual for you, your pain is concerning you, you have any medication questions Seek immediate medical attention if your symptoms reoccur or worsen . . "Provider Documentation" section prepared by Chacorta Murphy. . VTE Core Measure Inpt VTE Proph given/why not?: Enoxaparin (Lovenox)SQ <Electronically signed by Chacorta Murphy MD> Signed: 06/12/17 1043 Signed: The status of this report is Signed * If report status is Draft, the document has not been finalized by the responsible provider.
[2017-06-12 11:00] VITALS: BP 105/72; PULSE 89; TEMP 36.5; O2SAT 95
[2017-06-12] MEDS ORDERED: KETOROLAC TROMETHAMINE 15 MG/ML VIAL IV ONE (11:00)
[2017-06-12 11:25] VITALS: BP 105/72; PULSE 89; TEMP 36.5; O2SAT 95
== END 2017-06-12 12:01 | disposition home or self-care (01) ==
LOC: C.EDB 21:32 → C.2E 06-11 01:30 → ENRESERV 06-11 01:42
PROVIDERS: ADMIT Internal Medicine; ATTEND Internal Medicine
DX: R07.9 Chest pain, unspecified (principal); Z94.4 Liver transplant status; Z87.891 Personal history of nicotine dependence; Z98.890 Other specified postprocedural states; Z90.49 Acquired absence of other specified parts of digestive tract; Z88.0 Allergy status to penicillin; Z79.82 Long term (current) use of aspirin

== ENCOUNTER 2017-07-21 15:49 | Emergency (ER) | payer OTHER ==
[~2017-07-21] VITALS: Ht 170.2 cm; Wt 73.2 kg
[~2017-07-21 15:49] MED LIST changes: -AMPH30TA2 PO; +ASPEC81 PO; -CLON1TAB3 PO; -DICY10CA12 PO; -HYOS1TAB PO; -IBUP-103 PO
[2017-07-21 15:56] VITALS: TEMP 36.4; Ht 170.2 cm; Wt 73.2 kg
[2017-07-21] MEDS ORDERED: KETOROLAC TROMETHAMINE 30 MG/ML VIAL IV STA (17:08)
--- NOTE | 2017-07-21 17:20 | EMERGENCY ROOM VISIT NOTE ---
History Report prepared by Nazanin: Cleve Pedersen Under the Supervision of: Dr. Buzz Zayas M.D. First contact with patient: 16:58 Chief Complaint: CARDIAC ASSESSMENT Stated Complaint: CHEST PAIN;PANIC FEELING Nursing Triage Summary: Pt states, "All week I have had pain in the right side of my chest into my right shoulder. I was at work today and they told me to come get checked out. I work at [employer] and I had a shalini come attack me today. It made my bp go way up. I am supposed to have a stress test next week. It is worse whenever I move around." Denies cardiac hx. Liver transplant 04/1994. Pt states heart is on the right side of chest and liver is on the left side of abdomen. History of Present Illness The patient is a 21 year old white male with a past medical history of situs inversus, acute liver failure, liver transplant, ADHD, depression, GERD who presents to the ED with a cc of worsening, sharp, intermittent right-sided chest pressure and pain beginning a few months ago. Pt states his pain radiates to his right arm and has worsened over the past week. He reports he thinks he may have angina or a blood clot. The pt notes his pain worsens throughout the day. He had an episode today where his blood pressure sen and he was shaking uncontrollably and became lightheaded and short of breath. Positive aspirin use for a prophylactic issue. Negative alcohol use, tobacco use, drug use, nausea, cough, fevers, chills, history of blood clots, recent travel, swelling to his LE , and SOB other than earlier. Pt works at the [employer]. He states he does not know his biological family that well. Source of History: patient Onset: few months ago Position: chest (right) Quality: pressure, sharp Timing: intermittent Associated Symptoms: + SOB (only during his episode), No fevers, No chills, No cough, No nausea Note: Associated symptoms: right arm pain, lightheaded Denies: swelling in LE, recent travel, hx of blood clots Review of Systems See HPI for pertinent positives and negatives. A total of ten systems were reviewed and were otherwise negative. Past Medical & Surgical Medical Problems: (1) Acute liver failure (2) ADHD (attention deficit hyperactivity disorder) (3) Depression (4) GERD (gastroesophageal reflux disease) (5) History of biliary atresia (6) Liver Transplant Status (7) Polycythemia (8) Situs Inversus (9) Situs Inversus Surgical Problems: (1) Liver Transplant Status Family History Unobtainable family history due to adoption Social History Smoking Status: Never Smoker Alcohol Use: occasionally Drug Use: none Marital Status: single Housing Status: lives with family Occupation Status: employed, student Current/Historical Medications Scheduled Aspirin (Aspirin Ec), 81 MG PO DAILY Cetirizine (Zyrtec), 10 MG PO DAILY Tacrolimus (Prograf), 2 MG PO BID Scheduled PRN Bismuth Subsalicylate (Pepto-Bismol Susp), 15 ML PO Q6 PRN for Indigestion Triamcinolone Acet (Aristocort 0.1%), 1 APPLN TOP BID PRN for Itching Allergies Coded Allergies: Penicillins (Verified Allergy, Unknown, ., 07/21/17) Midazolam (Verified Adverse Reaction, Intermediate, "PARANOIA", 07/21/17) Acetaminophen (Unverified Adverse Reaction, Unknown, "AFFECTS MY LIVER", 07/21/17) Physical Exam Vital Signs Date Time Temp Pulse Resp B/P (MAP) Pulse Ox O2 Delivery O2 Flow Rate FiO2 07/21/17 19:57 78 20 128/76 98 07/21/17 19:47 65 07/21/17 19:16 97 Room Air 07/21/17 19:16 78 20 129/70 96 Room Air 07/21/17 15:56 36.4 82 18 127/81 99 Room Air Physical Exam GENERAL: Awake, alert, well-appearing, NAD, anxious in nature HENT: Normocephalic, atraumatic. EYES: Normal conjunctiva. Sclera non-icteric. NECK: Supple. No nuchal rigidity. FROM. RESPIRATORY: CTAB, no rhonchi, wheezing, crackles CARDIAC: RRR, no MRG. Heart sounds heard on right side of chest. ABDOMEN: Soft, NTND, BS+ MSK: No chest wall TTP, no LE edema NEURO: GCS 15, CN 2-12 intact, moves all 4s on command SKIN: No rash or jaundice noted. Medical Decision & Procedures ER Provider Diagnostic Interpretation: Radiology results as stated below per my review and radiologist interpretation (CHEST FOR PE) ANGIO WITH CT DOSE: 342.48 mGy.cm HISTORY: 21 years-old Male presents with acute atypical right-sided chest pain. History of situs inversus TECHNIQUE: Multiple CTA images of the chest were obtained after the intravenous administration of 111 ml Optiray 320. Coronal and sagittal MIPS were obtained from the axial data set and were submitted for review. A dose lowering technique was utilized adhering to the principles of ALARA. COMPARISON: Portable chest radiograph of same day. 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 Heart is normal in size without pericardial effusion. Thoracic aorta is normal in caliber without dissection or aneurysm. The pulmonary arterial tree is opacified to level of the subsegmental branches and demonstrates no focal filling defects to suggest pulmonary thromboembolic disease. CT CHEST: Mild residual thymic tissue. Thyroid appears homogeneous. No pathologic adenopathy of the chest. Mild symmetric bilateral gynecomastia. There is no pneumothorax, pleural effusion, focal airspace consolidation or overt pulmonary edema. The lung wright are clear. No suspicious pulmonary nodules or masses identified. Perifissural lymph node measuring 5 mm is seen adjacent to the right middle lobe, image 162 series 4. The central airways are patent. No acute amount of the imaged upper abdomen. Soft tissues are unremarkable. The bones appear intact. IMPRESSION: 1. No acute intrathoracic abnormality identified, specifically no acute aortic pathology or evidence of pulmonary thromboembolic disease. 2. 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 The above report was generated using voice recognition software. It may contain grammatical, syntax or spelling errors. Electronically signed by: Marvin Diaz M.D. 07/21/2017 7:08 PM Dictated Date/Time: 07/21/2017 7:02 PM Laboratory Results 07/21/17 17:36 Red Blood Count 6.40, Mean Corpuscular Volume 83.9, Mean Corpuscular Hemoglobin 31.1, Mean Corpuscular Hemoglobin Concent 37.1, Mean Platelet Volume 10.6, Neutrophils (%) (Auto) 74.7, Lymphocytes (%) (Auto) 17.2, Monocytes (%) (Auto) 6.3, Eosinophils (%) (Auto) 1.4, Basophils (%) (Auto) 0.2, Neutrophils # (Auto) 7.67, Lymphocytes # (Auto) 1.77, Monocytes # (Auto) 0.65, Eosinophils # (Auto) 0.14, Basophils # (Auto) 0.02 07/21/17 17:36 Test 07/21/17 17:36 07/21/17 18:06 White Blood Count 10.27 K/uL (4.8-10.8) Red Blood Count 6.40 M/uL (4.7-6.1) Hemoglobin 19.9 g/dL (14.0-18.0) Hematocrit 53.7 % (42-52) Mean Corpuscular Volume 83.9 fL (80-100) Mean Corpuscular Hemoglobin 31.1 pg (25-34) Mean Corpuscular Hemoglobin Concent 37.1 g/dl (32-36) Platelet Count 171 K/uL (130-400) Mean Platelet Volume 10.6 fL (7.4-10.4) Neutrophils (%) (Auto) 74.7 % Lymphocytes (%) (Auto) 17.2 % Monocytes (%) (Auto) 6.3 % Eosinophils (%) (Auto) 1.4 % Basophils (%) (Auto) 0.2 % Neutrophils # (Auto) 7.67 K/uL (1.4-6.5) Lymphocytes # (Auto) 1.77 K/uL (1.2-3.4) Monocytes # (Auto) 0.65 K/uL (0.11-0.59) Eosinophils # (Auto) 0.14 K/uL (0-0.5) Basophils # (Auto) 0.02 K/uL (0-0.2) RDW Standard Deviation 39.8 fL (36.4-46.3) RDW Coefficient of Variation 13.2 % (11.5-14.5) Immature Granulocyte % (Auto) 0.2 % Immature Granulocyte # (Auto) 0.02 K/uL (0.00-0.02) Prothrombin Time 10.8 SECONDS (9.0-12.0) Prothromb Time International Ratio 1.0 (0.9-1.1) Activated Partial Thromboplast Time 25.0 SECONDS (21.0-31.0) Partial Thromboplastin Ratio 1.0 Est Creatinine Clear Calc Drug Dose 105.3 ml/min Estimated GFR () 119.5 Estimated GFR (Non- 103.1 BUN/Creatinine Ratio 19.2 (10-20) Calcium Level 9.2 mg/dl (8.5-10.1) Troponin I < 0.015 ng/ml (0-0.045) Bedside Hemoglobin 18.0 g/dl (14.0-18.0) Bedside Hematocrit 53 % (42-52) Bedside Sodium 141 mEq/L (135-144) Bedside Potassium 3.8 mEq/L (3.3-5.0) Bedside Chloride 104 mEq/L (101-112) Bedside Total CO2 24 mEq/l (24-31) Anion Gap 18.0 mmol/L (16-25) Bedside Blood Urea Nitrogen 20 mg/dl (7-18) Bedside Creatinine 0.9 mg/dl (0.6-1.3) Bedside Glucose (other) 90 mg/dl (70-99) Bedside Ionized Calcium (Jomar) 1.21 mmol/l (1.12-1.32) Laboratory results reviewed by me Medications Administered Medications (Trade) Dose Ordered Sig/Tmii Route Start Time Stop Time Status Last Admin Dose Admin Ketorolac Tromethamine (Toradol Inj) 30 mg NOW STAT IV 07/21/17 17:08 07/21/17 17:10 DC 07/21/17 19:21 30 MG ECG Indication: chest pain Rate (beats per minute): 78 Rhythm: normal sinus Findings: left axis deviation, other (Normal intervals, no other STS changes or TWI) ED Course 1700: The patient was evaluated in room C03. A complete history and physical exam was performed. 1854: I attempted to reevaluate the patient, but he is in CT. 1954: I reevaluated the patient. Discussed results and discharge instructions: he verbalized understanding and agreement. The patient is ready for discharge. Medical Decision The patient is a 21 year old white male with a past medical history of situs inversus, acute liver failure, liver transplant, ADHD, depression, GERD who presents to the ED with a cc of worsening, sharp, intermittent right-sided chest pressure and pain beginning a few months ago. Differential diagnosis: Etiologies such as cardiac ischemia, aortic dissection, pulmonary embolism, pneumonia, pneumothorax, musculoskeletal, infections, pericarditis, myocarditis , esophageal rupture, gastrointestinal, as well as others were entertained. Patient was seen and evaluated the bedside. Patient is a prior history of liver transplant in situs inversus. Patient isn't complaining of some right- sided chest pain that radiates to his right arm. Patient states that it is sharp. He denies any infectious symptoms. Patient was concerned about blood clots and/or angina. Patient does not describe his pain is exertional. Patient is otherwise very well-appearing and has normal vital signs. Patient states he takes tacrolimus. Patient did have blood work that was completed. Patient does have an elevated hemoglobin he states that he seen his assistant technician and has been placed on a baby aspirin which she has been taking. Patient's EKG was a right-sided EKG given his situs inversus. Patient does have some left axis deviation but no other acute ischemic changes. Patient did have a CT of the chest. Patient's CT of the chest did not show any pulmonary emboli. Patient had a negative troponin. Patient was feeling improved. Patient tolerated by mouth. Patient was told to follow-up with his primary care. Patient was given strict follow-up, discharge, and return precautions. All questions were answered. Patient was deemed suitable for outpatient follow-up at this time. Patient agreed with the plan of care and was safely discharged home. Impression Primary Impression: Chest pain Scribe Attestation The scribe's documentation has been prepared under my direction and personally reviewed by me in its entirety. I confirm that the note above accurately reflects all work, treatment, procedures, and medical decision making performed by me. Departure Information Dispostion Home / Self-Care Referrals No Doctor, Assigned (PCP) Forms IMPORTANT VISIT INFORMATION Patient Instructions Chest Pain - [facility] Additional Instructions Please return to the emergency department if you have worsening or recurrent symptoms not amenable to at-home treatment. Please call for a follow-up appointment with her primary care physician. Please take your medications as prescribed. If you have other concerns and/or complaints please feel free to also call your primary care physician's office or return the ED for further evaluation, management, and treatment. You may take 600 mg Ibuprofen every 6 hours as needed for pain with food for no more than 2 consecutive days. You may take tylenol 1000 mg every 6 hours as needed for pain. You may take motrin and tylenol separately or at the same time. Take your medications as prescribed. You have been examined and treated today on an emergency basis only. This is not a substitute for, or an effort to provide, complete comprehensive medical care. It is impossible to recognize and treat all injuries or illnesses in a single emergency department visit. It is therefore important that you follow up closely with [facility], your PCP, and/or your specialist(s). Call as soon as possible for an appointment. Thank you for your time and consideration. I look forward to speaking with you again soon. Please don't hesitate to call us if you have any questions. Problem Qualifiers Primary Impression: Chest pain Chest pain type: unspecified Qualified Codes: R07.9 - Chest pain, unspecified
[2017-07-21 18:03] LABS: BASO % 0.2 %; BASO ABS # 0.02 K/uL (0-0.2); COMPLETE YES; EOS % 1.4 %; HEMATOCRIT 53.7 % (42-52); IG% 0.2 %; LYMPH % 17.2 %; LYMPH ABS # 1.77 K/uL (1.2-3.4); MEAN CELL VOLUME 83.9 fL (80-100); MEAN CORPUSCULAR HEMOGLOBIN 31.1 pg (25-34); MEAN CORPUSCULAR HGB CONC 37.1 g/dl (32-36); MEAN PLATELET VOLUME 10.6 fL (7.4-10.4); MONO % 6.3 %; NEUT % 74.7 %; PLATELET COUNT 171 K/uL (130-400); WHITE BLOOD COUNT 10.27 K/uL (4.8-10.8)
[2017-07-21 18:06] LABS: PROTHROMBIN TIME (PATIENT) 10.8 SECONDS (9.0-12.0)
[2017-07-21] MEDS ORDERED: ASPI81TA28 PO (18:10)
[2017-07-21] MEDS ORDERED: CETI10TA84 PO (18:10)
[2017-07-21 18:14] LABS: BLOOD UREA NITROGEN 20 mg/dl (7-18); BUN/CREATININE RATIO 19.2 (10-20); CALCIUM 9.2 mg/dl (8.5-10.1); CARBON DIOXIDE 29 mmol/L (21-32); CHLORIDE 104 mmol/L (98-107); CREATININE 1.02 mg/dl (0.60-1.40); GLUCOSE 84 mg/dl (70-99); POTASSIUM 3.5 mmol/L (3.5-5.1); SODIUM 137 mmol/L (136-145)
[2017-07-21 18:19] LABS: ISTAT CREATININE 0.9 mg/dl (0.6-1.3); ISTAT IONIZED CALCIUM 1.21 mmol/l (1.12-1.32)
[2017-07-21] MEDS ORDERED: OPTIRAY 320 IV PRN (18:45)
--- NOTE | 2017-07-21 19:10 | DIAGNOSTIC IMAGING REPORT ---
(CHEST FOR PE) ANGIO WITH CT DOSE: 342.48 mGy.cm HISTORY: 21 years-old Male presents with acute atypical right-sided chest pain. History of situs inversus TECHNIQUE: Multiple CTA images of the chest were obtained after the intravenous administration of 111 ml Optiray 320. Coronal and sagittal MIPS were obtained from the axial data set and were submitted for review. A dose lowering technique was utilized adhering to the principles of ALARA. COMPARISON: Portable chest radiograph of same day. 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 Heart is normal in size without pericardial effusion. Thoracic aorta is normal in caliber without dissection or aneurysm. The pulmonary arterial tree is opacified to level of the subsegmental branches and demonstrates no focal filling defects to suggest pulmonary thromboembolic disease. CT CHEST: Mild residual thymic tissue. Thyroid appears homogeneous. No pathologic adenopathy of the chest. Mild symmetric bilateral gynecomastia. There is no pneumothorax, pleural effusion, focal airspace consolidation or overt pulmonary edema. The lung wright are clear. No suspicious pulmonary nodules or masses identified. Perifissural lymph node measuring 5 mm is seen adjacent to the right middle lobe, image 162 series 4. The central airways are patent. No acute amount of the imaged upper abdomen. Soft tissues are unremarkable. The bones appear intact. IMPRESSION: 1. No acute intrathoracic abnormality identified, specifically no acute aortic pathology or evidence of pulmonary thromboembolic disease. 2. 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 The above report was generated using voice recognition software. It may contain grammatical, syntax or spelling errors. Electronically signed by: Marvin Diaz M.D. 07/21/2017 7:08 PM Dictated Date/Time: 07/21/2017 7:02 PM
[2017-07-21 19:16] VITALS: O2SAT 97
[2017-07-21] MEDS ORDERED: KETOROLAC TROMETHAMINE 30 MG/ML VIAL ONE (19:19)
[2017-07-21 19:57] VITALS: BP 128/76; PULSE 78; O2SAT 98
== END 2017-07-21 19:58 | disposition home or self-care (01) ==
LOC: C.EDB 15:51 → C.EDC 19:58
DX: R07.9 Chest pain, unspecified (principal); K72.00 Acute and subacute hepatic failure without coma; F90.9 Attention-deficit hyperactivity disorder, unspecified type; F32.9 Major depressive disorder, single episode, unspecified; K21.9 Gastro-esophageal reflux disease without esophagitis; Z94.4 Liver transplant status; Z79.82 Long term (current) use of aspirin

== ENCOUNTER 2018-03-09 14:34 | Emergency (ER) | payer OTHER ==
[~2018-03-09 14:34] MED LIST changes: -ASPEC81 PO; +CYCL10TA6 PO; +FAMO20TA9 PO; +IBUP200C80 PO; +KLN/5 PO; +ONDA4TAB10 SL; +ONDA4TAB65 PO; -TRMCR130WC TOP
[2018-03-09 14:43] VITALS: TEMP 37.3; Ht 165.1 cm
[2018-03-09] MEDS ORDERED: SODIUM CHLORIDE 0.9% 1000ML 1,000 ML IV STA (15:25)
[2018-03-09] MEDS ORDERED: KETOROLAC TROMETHAMINE 30 MG/ML VIAL IV STA (15:25)
--- NOTE | 2018-03-09 15:32 | EMERGENCY ROOM VISIT NOTE ---
History Report prepared by Nazanin: Cleve Pedersen Under the Supervision of: Dr. Jethro Rankin M.D. First contact with patient: 15:01 Chief Complaint: ABDOMINAL PAIN Stated Complaint: ABDOMINAL PAIN/CHEST PAIN Nursing Triage Summary: pt arrived als, was told by doctor that his lipase is elevated, had liver transplant at 6 months old, polyspleenia, reversed internal organs, has right side pain that moves into his back, past couple days left sided abdominal pain, diarrhea, SOB exacerbation, nauseated, elevated BP and elevated HR History of Present Illness The patient is a 22 year old male who presents to the Emergency Room per the request of his PCP because he had a lipase of 426. The patient states he was evaluated by his PCP yesterday and had blood work performed. He reports he has been experiencing constant abdominal pain for the past three days. He currently rates his discomfort a 5/10 in severity. The patient notes his symptoms radiate to his lower, central chest. He states she was here a week ago and two days ago. The patient reports he was transferred to [facility] because he had a severely elevated WBC. He denies nausea, vomiting, dizziness, blood in stool, and diarrhea. The patient states he does not have a history of kidney trouble. Source of History: patient Onset: three days ago Position: abdomen Symptom Intensity: 5/10 Timing: constant Associated Symptoms: + chest pain (lower, central), No nausea, No vomiting, No diarrhea Note: Denies: dizziness, blood in stool Review of Systems See HPI for pertinent positives and negatives. A total of ten systems were reviewed and were otherwise negative. 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 Surgical Problems: (1) Liver Transplant Status Family History Unobtainable family history due to adoption Social History Smoking Status: Never Smoker Alcohol Use: none Drug Use: none Marital Status: single Housing Status: lives with family Occupation Status: employed Current/Historical Medications Scheduled Aspirin (Aspirin Ec), 81 MG PO QAM Cetirizine (Zyrtec), 10 MG PO QAM Escitalopram Oxalate (Escitalopram Oxalate), 10 MG PO DAILY Pregabalin (Lyrica), 100 MG PO BID Tacrolimus (Prograf), 2 MG PO BID Tamsulosin HCl (Tamsulosin HCl), 0.4 MG PO HS Scheduled PRN Bismuth Subsalicylate (Pepto-Bismol Susp), 15 ML PO Q6H PRN for Indigestion Clonazepam (Klonopin), 0.5 MG PO BID PRN for Anxiety Famotidine (Pepcid), 20 MG PO BID PRN for GI Upset Ibuprofen (Ibuprofen), 400 MG PO BID PRN for Pain Ondansetron (Ondansetron HCl), 4 MG PO Q6H PRN for Nausea Oxycodone HCl (Oxycodone HCl), 5 MG PO Q6H PRN for Pain Triamcinolone Acet (Aristocort 0.1%), 1 APPLN TOP BID PRN for Itching Allergies Coded Allergies: Penicillins (Verified Allergy, Unknown, ., 02/15/18) Midazolam (Verified Adverse Reaction, Intermediate, "PARANOIA", 02/15/18) Acetaminophen (Verified Adverse Reaction, Unknown, "AFFECTS MY LIVER", 02/15) Physical Exam Vital Signs Date Time Temp Pulse Resp B/P (MAP) Pulse Ox O2 Delivery O2 Flow Rate FiO2 03/09/18 19:00 78 125/75 95 03/09/18 18:04 79 20 141/84 94 Room Air 03/09/18 16:50 84 12 126/93 94 Room Air 03/09/18 15:22 94 03/09/18 14:43 37.3 89 16 136/99 95 Room Air Physical Exam Physical Exam GENERAL: He is oriented to person, place, and time. He appears well-developed and well-nourished. He does not appear distressed. HENT: Exam performed. Head: Normocephalic and atraumatic. Right Ear: External ear normal. No mastoid tenderness. Left Ear: External ear normal. No mastoid tenderness. Mouth/Throat: The oropharynx is clear and moist. No trismus in the jaw. No dental abscesses or uvula swelling. No oropharyngeal exudate or tonsillar abscesses. EYES: Conjunctivae and EOM are normal. Pupils are equal, round, and reactive to light. Right eye exhibits no discharge. Left eye exhibits no discharge. No scleral icterus. NECK: Normal range of motion. Neck supple. No JVD present. No spinous process tenderness present. No carotid bruit present. No rigidity. No tracheal deviation and normal range of motion present. No Brudzinski's sign and no Kernig 's sign noted. CV: Normal rate, regular rhythm, normal heart sounds and intact distal pulses. There is no peripheral edema. Palpable radial pulses bue. PULM/CHEST: Effort normal and breath sounds normal. No respiratory distress. No stridor. He has no wheezes. He has no rales. Chest Wall: He exhibits no tenderness. ABD: The abdomen is soft. Bowel sounds are normal. He has no distension. No mass is present. There is no tenderness. There is no rebound, no guarding, no Ward's sign and no tenderness at McBurney's point. Rovsig negative. MUSC/SKEL: Normal range of motion. There is no peripheral edema, tenderness or deformity. LYMPH: No cervical adenopathy. NEURO: He is alert and oriented to person, place, and time. He has normal strength. No cranial nerve deficit or sensory deficit. Coordination and gait normal. GCS eye subscore is 4. GCS verbal subscore is 5. GCS motor subscore is 6. Cerebellar tests wnl. SKIN: Skin is warm and dry. He is not diaphoretic. PSYCH: He has a normal mood and affect. Behavior is normal. Judgment and thought content normal. Medical Decision & Procedures ER Provider Diagnostic Interpretation: Radiology results as stated below per my review and radiologist interpretation CT OF THE ABDOMEN AND PELVIS WITH CONTRAST CLINICAL HISTORY: Right sided abdominal pain. Evaluate for pancreatitis. COMPARISON STUDY: CT of the abdomen and pelvis August 13, 2016. Abdominal series February 24, 2018. TECHNIQUE: Following IV administration of 115 mL of Optiray-320, axial images of the abdomen and pelvis were obtained from the lung bases to the proximal femurs. Images were reviewed in the axial, sagittal, and coronal planes. IV contrast was administered without complication. A dose lowering technique was utilized adhering to the principles of ALARA. CT DOSE: 346.54 mGy.cm FINDINGS: Lung bases are clear. Note is again made of situs inversus. No pneumatosis, free air or portal venous gas is present. The appearance of the transplanted liver is unchanged. Borderline splenomegaly is unchanged. The adrenal glands, kidneys and pancreas are unremarkable. There is no peripancreatic infiltration or fluid. There is no biliary ductal dilatation. There is no evidence for a bowel obstruction. No bowel wall thickening is noted. No ascites is present. There is no abscess. The appendix is not visualized. No suspicious osseous lesion is present. IMPRESSION: 1. No acute process within the abdomen or pelvis. 2. Normal CT appearance of the pancreas. This does not exclude the possibility of acute pancreatitis. 3. Situs inversus. Electronically signed by: Byron Nicole M.D. 03/09/2018 5:54 PM Dictated Date/Time: 03/09/2018 5:38 PM Laboratory Results 03/09/18 15:56 Red Blood Count 6.15, Mean Corpuscular Volume 77.9, Mean Corpuscular Hemoglobin 29.3, Mean Corpuscular Hemoglobin Concent 37.6, Mean Platelet Volume 9.8, Neutrophils (%) (Auto) 78.0, Lymphocytes (%) (Auto) 12.3, Monocytes (%) (Auto) 7.4, Eosinophils (%) (Auto) 1.6, Basophils (%) (Auto) 0.3, Neutrophils # (Auto) 9.46, Lymphocytes # (Auto) 1.49, Monocytes # (Auto) 0.90, Eosinophils # (Auto) 0.20, Basophils # (Auto) 0.04 03/09/18 15:56 Test 03/09/18 15:56 White Blood Count 12.14 K/uL (4.8-10.8) Red Blood Count 6.15 M/uL (4.7-6.1) Hemoglobin 18.0 g/dL (14.0-18.0) Hematocrit 47.9 % (42-52) Mean Corpuscular Volume 77.9 fL (80-100) Mean Corpuscular Hemoglobin 29.3 pg (25-34) Mean Corpuscular Hemoglobin Concent 37.6 g/dl (32-36) Platelet Count 191 K/uL (130-400) Mean Platelet Volume 9.8 fL (7.4-10.4) Neutrophils (%) (Auto) 78.0 % Lymphocytes (%) (Auto) 12.3 % Monocytes (%) (Auto) 7.4 % Eosinophils (%) (Auto) 1.6 % Basophils (%) (Auto) 0.3 % Neutrophils # (Auto) 9.46 K/uL (1.4-6.5) Lymphocytes # (Auto) 1.49 K/uL (1.2-3.4) Monocytes # (Auto) 0.90 K/uL (0.11-0.59) Eosinophils # (Auto) 0.20 K/uL (0-0.5) Basophils # (Auto) 0.04 K/uL (0-0.2) RDW Standard Deviation 37.0 fL (36.4-46.3) RDW Coefficient of Variation 13.3 % (11.5-14.5) Immature Granulocyte % (Auto) 0.4 % Immature Granulocyte # (Auto) 0.05 K/uL (0.00-0.02) Anion Gap 6.0 mmol/L (3-11) Estimated GFR () 100.5 Estimated GFR (Non- 86.7 BUN/Creatinine Ratio 11.4 (10-20) Lactic Acid Level 0.7 mmol/L (0.4-2.0) Calcium Level 9.1 mg/dl (8.5-10.1) Total Bilirubin 1.0 mg/dl (0.2-1) Direct Bilirubin 0.3 mg/dl (0-0.2) Aspartate Amino Transf (AST/SGOT) 43 U/L (15-37) Alanine Aminotransferase (ALT/SGPT) 47 U/L (12-78) Alkaline Phosphatase 112 U/L (45-117) Total Protein 7.1 gm/dl (6.4-8.2) Albumin 3.8 gm/dl (3.4-5.0) Lipase 874 U/L (73-393) Laboratory results reviewed by me Medications Administered Medications (Trade) Dose Ordered Sig/Timi Route Start Time Stop Time Status Last Admin Dose Admin Sodium Chloride 1,000 ml @ 999 mls/hr Q1H1M STAT IV 03/09/18 15:25 03/09/18 16:25 DC 03/09/18 16:49 999 MLS/HR Morphine Sulfate (MoRPHine SULFATE INJ) 4 mg NOW STAT IV 03/09/18 16:48 03/09/18 16:49 DC 03/09/18 16:56 4 MG ECG Per My Interpretation Indication: abdominal pain Rate (beats per minute): 87 Rhythm: sinus with SA Findings: other (ND, QRS, QTc intervals are wnl. No ST depression or ST elevation) ED Course 1521: The patient was evaluated in room C02B. A complete history and physical exam was performed.Review of EMR states the patient was in the ED 3 days ago for similar chest pain. Labs at that time were wnl except for a lipase of 509. The case was discussed with Dr. Franco who said his lipase has improved from 800 to the 500s and was told to follow-up as an outpatient. 1525: Ordered Toradol 15mg IV - Pt refused, Sodium Chloride 1000 ml @ 999 mls/ hr IV 1644: I discussed the patient's case with Dr. Esquivel, the patient's PCP. She states she was worried about the potential for pancreatitis because of his elevated lipase in the office. She was also concerned about his pain. She did not feel comfortable with an outpatient CT. The patient has no known allergies to Toradol or NSAIDs. She states he can receive NSAIDs if his creatinine is baseline. I informed her that the patient is actively refusing Toradol. She asked I obtain a CT scan and call her directly with the results at [phone]. If the CT shows abnormalities, he may need to be transferred to Dr. Franco at [facility] for further evaluation. 1648: Ordered Morphine Sulfate 4mg IV 1819: I discussed the patient's case with Dr. Franco, [facility] Transplant Team. He states the patient does not need to be transferred. He agrees with the discharge and treatment plan. 1824: I spoke with Dr. Esquivel again. She states the patient does not need to be admitted. He is tolerating PO and can follow-up as an outpatient for a recheck lipase level. I reevaluated the patient. DISCHARGE - Plan of care discussed with patient and questions answered. The patient was given both verbal and printed discharge instructions. The patient verbalized understanding and ability to comply. The patient is to seek outpatient follow up as noted in the discharge instructions. The patient verbalized understanding and ability to comply. The patient is discharged in stable condition. The patient was instructed to return for worsening symptoms. Medical Decision 1521: The patient was evaluated in room C02B. A complete history and physical exam was performed.Review of EMR states the patient was in the ED 3 days ago for similar chest pain. Labs at that time were wnl except for a lipase of 509. The case was discussed with Dr. Franco who said his lipase has improved from 800 to the 500s and was told to follow-up as an outpatient. 1525: Ordered Toradol 15mg IV - Pt refused, Sodium Chloride 1000 ml @ 999 mls/ hr IV 1644: I discussed the patient's case with Dr. Esquivel, the patient's PCP. She states she was worried about the potential for pancreatitis because of his elevated lipase in the office. She was also concerned about his pain. She did not feel comfortable with an outpatient CT. The patient has no known allergies to Toradol or NSAIDs. She states he can receive NSAIDs if his creatinine is baseline. I informed her that the patient is actively refusing Toradol. She asked I obtain a CT scan and call her directly with the results at . If the CT shows abnormalities, he may need to be transferred to Dr. Franco at [facility] for further evaluation. 1648: Ordered Morphine Sulfate 4mg IV 1819: I discussed the patient's case with Dr. Franco, [facility] Team. He states the patient does not need to be transferred. He agrees with the discharge and treatment plan. 1824: I spoke with Dr. Esquivel again. She states the patient does not need to be admitted. He is tolerating PO and can follow-up as an outpatient for a recheck lipase level. I reevaluated the patient. DISCHARGE - Plan of care discussed with patient and questions answered. The patient was given both verbal and printed discharge instructions. The patient verbalized understanding and ability to comply. The patient is to seek outpatient follow up as noted in the discharge instructions. The patient verbalized understanding and ability to comply. The patient is discharged in stable condition. The patient was instructed to return for worsening symptoms. Medication Reconcilliation Current Medication List: was personally reviewed by me Blood Pressure Screening Patient's blood pressure: Normal blood pressure Blood pressure disposition: Did not require urgent referral Consults Consulting Physician: Dr. Esquivel, the patient's PCP Returned Call: [phone] I discussed the patient's case with Dr. Esquivel, the patient's PCP. She states she was worried about the potential for pancreatitis because of his elevated lipase in the office. She was also concerned about his pain. She did not feel comfortable with an outpatient CT. The patient has no known allergies to Toradol or NSAIDs. She states he can receive NSAIDs if his creatinine is baseline. I informed her that the patient is actively refusing Toradol. She asked I obtain a CT scan and call her directly with the results at [phone]. If the CT shows abnormalities, he may need to be transferred to Dr. Franco at [facility] for further evaluation. 1823: I spoke with Dr. Esquivel again. She states the patient does not need to be admitted. He is tolerating PO and can follow-up as an outpatient for a recheck lipase level. Additional Consults: Time Called: 1813 Consulted Physician: Dr. Franco, [facility] Returned Call: [phone] Additional Comments: I discussed the patient's case with Dr. Franco, [facility]. He states the patient does not need to be transferred. He agrees with the discharge and treatment plan. Impression Primary Impression: Abdominal pain Scribe Attestation The scribe's documentation has been prepared under my direction and personally reviewed by me in its entirety. I confirm that the note above accurately reflects all work, treatment, procedures, and medical decision making performed by me. The chart was completed utilizing [employer] Speech voice recognition software. Grammatical errors, random word insertions, pronoun errors, and incomplete sentences are an occasional consequence of this system due to software limitations, ambient noise, and hardware issues. Any formal questions or concerns about the content, text, or information contained within the body of this dictation should be directly addressed to the physician for clarification. Departure Information Dispostion Home / Self-Care Referrals Que Davila MD (PCP) Forms HOME CARE DOCUMENTATION FORM, IMPORTANT VISIT INFORMATION Patient Instructions Abdominal Pain - [facility], [facility] Additional Instructions Follow-up with the transplant team at [facility]. Problem Qualifiers Primary Impression: Abdominal pain Abdominal location: unspecified location Qualified Codes: R10.9 - Unspecified abdominal pain
[2018-03-09 16:14] LABS: BASO % 0.3 %; BASO ABS # 0.04 K/uL (0-0.2); EOS % 1.6 %; HEMATOCRIT 47.9 % (42-52); IG# 0.05 K/uL (0.00-0.02); LYMPH % 12.3 %; LYMPH ABS # 1.49 K/uL (1.2-3.4); MEAN CELL VOLUME 77.9 fL (80-100); MEAN CORPUSCULAR HEMOGLOBIN 29.3 pg (25-34); MEAN CORPUSCULAR HGB CONC 37.6 g/dl (32-36); MEAN PLATELET VOLUME 9.8 fL (7.4-10.4); MONO % 7.4 %; NEUT ABS # 9.46 K/uL (1.4-6.5); PLATELET COUNT 191 K/uL (130-400); RED CELL DISTRIBUTION WIDTH CV 13.3 % (11.5-14.5); WHITE BLOOD COUNT 12.14 K/uL (4.8-10.8)
[2018-03-09] MEDS ORDERED: CLON0.5T9 PO (16:14)
[2018-03-09] MEDS ORDERED: ONDA4TAB9 PO (16:14)
[2018-03-09 16:35] LABS: ALBUMIN 3.8 gm/dl (3.4-5.0); ALKALINE PHOSPHATASE 112 U/L (45-117); ALT/SGPT 47 U/L (12-78); AST/SGOT 43 U/L (15-37); BLOOD UREA NITROGEN 13 mg/dl (7-18); CALCIUM 9.1 mg/dl (8.5-10.1); CARBON DIOXIDE 28 mmol/L (21-32); CREATININE 1.17 mg/dl (0.60-1.40); GLUCOSE 86 mg/dl (70-99); LIPASE 874 U/L (73-393); POTASSIUM 4.1 mmol/L (3.5-5.1); SODIUM 140 mmol/L (136-145); TOTAL PROTEIN 7.1 gm/dl (6.4-8.2)
[2018-03-09] MEDS ORDERED: MoRPHine SULFATE 4 MG/ML 1 ML CARP\\VIAL IV STA (16:48)
[2018-03-09] MEDS ORDERED: OPTIRAY 320 IV PRN (17:00)
--- NOTE | 2018-03-09 17:55 | DIAGNOSTIC IMAGING REPORT ---
CT OF THE ABDOMEN AND PELVIS WITH CONTRAST CLINICAL HISTORY: Right sided abdominal pain. Evaluate for pancreatitis. COMPARISON STUDY: CT of the abdomen and pelvis August 13, 2016. Abdominal series February 24, 2018. TECHNIQUE: Following IV administration of 115 mL of Optiray-320, axial images of the abdomen and pelvis were obtained from the lung bases to the proximal femurs. Images were reviewed in the axial, sagittal, and coronal planes. IV contrast was administered without complication. A dose lowering technique was utilized adhering to the principles of ALARA. CT DOSE: 346.54 mGy.cm FINDINGS: Lung bases are clear. Note is again made of situs inversus. No pneumatosis, free air or portal venous gas is present. The appearance of the transplanted liver is unchanged. Borderline splenomegaly is unchanged. The adrenal glands, kidneys and pancreas are unremarkable. There is no peripancreatic infiltration or fluid. There is no biliary ductal dilatation. There is no evidence for a bowel obstruction. No bowel wall thickening is noted. No ascites is present. There is no abscess. The appendix is not visualized. No suspicious osseous lesion is present. IMPRESSION: 1. No acute process within the abdomen or pelvis. 2. Normal CT appearance of the pancreas. This does not exclude the possibility of acute pancreatitis. 3. Situs inversus. Electronically signed by: Byron Nicole M.D. 03/09/2018 5:54 PM Dictated Date/Time: 03/09/2018 5:38 PM
[2018-03-09] MEDS ORDERED: CETI10TA84 PO (18:10)
[2018-03-09] MEDS ORDERED: ASPI81TA28 PO (18:10)
[2018-03-09 19:00] VITALS: BP 125/75; PULSE 78; O2SAT 95
[2018-03-09] MEDS ORDERED: TRMCR130WC TOP (20:48)
[2018-03-09] MEDS ORDERED: OXYC-609 PO (21:06)
[2018-03-09] MEDS ORDERED: LYR100 PO (21:06)
[2018-03-09] MEDS ORDERED: FLM4 PO (21:06)
[2018-03-09] MEDS ORDERED: LXP10 PO (21:06)
== END 2018-03-09 19:01 | disposition home or self-care (01) ==
LOC: EDBD 14:34 → C.EDC 14:35
DX: R10.9 Unspecified abdominal pain (principal); R07.9 Chest pain, unspecified; F32.9 Major depressive disorder, single episode, unspecified; F90.9 Attention-deficit hyperactivity disorder, unspecified type; Z94.4 Liver transplant status; Z79.899 Other long term (current) drug therapy; Z88.0 Allergy status to penicillin; Z79.82 Long term (current) use of aspirin; Z88.8 Allergy status to other drugs, medicaments and biological substances

== ENCOUNTER 2018-03-22 15:55 | Emergency (ER) | payer OTHER ==
[~2018-03-22] VITALS: Ht 170.2 cm; Wt 72.1 kg
[~2018-03-22 15:55] MED LIST changes: +ASPI81TA28 PO; +CETI10TA84 PO; +CLON0.5T9 PO; -CYCL10TA6 PO; -FAMO20TA9 PO; +FLM4 PO; -KLN/5 PO; +LXP10 PO; +LYR100 PO; -ONDA4TAB10 SL; -ONDA4TAB65 PO; +ONDA4TAB9 PO; +OXYC-609 PO; +TRMCR130WC TOP
[2018-03-22 16:18] VITALS: TEMP 36.9; Ht 170.2 cm; Wt 72.1 kg
[2018-03-22] MEDS ORDERED: ONDANSETRON INJ 2 MG/ML 2 ML VIAL IV STA (16:34)
[2018-03-22] MEDS ORDERED: SODIUM CHLORIDE 0.9% 1000ML 1,000 ML IV ONE (16:34)
[2018-03-22] MEDS ORDERED: ESCI1TAB10 PO (16:42)
[2018-03-22] MEDS ORDERED: FAMO20TA11 PO (16:47)
[2018-03-22] MEDS ORDERED: LCTX PO (16:49)
[2018-03-22 17:35] VITALS: O2SAT 94
[2018-03-22 17:43] LABS: BASO % 0.2 %; BASO ABS # 0.02 K/uL (0-0.2); EOS % 1.6 %; EOS ABS # 0.18 K/uL (0-0.5); HEMATOCRIT 48.7 % (42-52); HEMOGLOBIN 17.5 g/dL (14.0-18.0); IG# 0.04 K/uL (0.00-0.02); LYMPH % 19.1 %; MEAN CELL VOLUME 80.5 fL (80-100); MEAN CORPUSCULAR HEMOGLOBIN 28.9 pg (25-34); MEAN CORPUSCULAR HGB CONC 35.9 g/dl (32-36); MEAN PLATELET VOLUME 10.4 fL (7.4-10.4); MONO % 7.8 %; NEUT ABS # 8.16 K/uL (1.4-6.5); PLATELET COUNT 184 K/uL (130-400); RED CELL DISTRIBUTION WIDTH CV 13.5 % (11.5-14.5); RED CELL DISTRIBUTION WIDTH SD 38.9 fL (36.4-46.3)
[2018-03-22] MEDS ORDERED: OXYCODONE HCL IR 5 MG TAB (IMMEDIATE RELEASE) PO STA (17:49)
[2018-03-22 18:18] LABS: CALCIUM 9.1 mg/dl (8.5-10.1); CREATININE 1.06 mg/dl (0.60-1.40); TOTAL PROTEIN 7.3 gm/dl (6.4-8.2)
[2018-03-22 18:58] VITALS: BP 115/72; PULSE 72; O2SAT 98
--- NOTE | 2018-03-22 23:08 | EMERGENCY ROOM VISIT NOTE ---
History Report prepared by Nazanin: Breanna Askew Under the Supervision of: Dr. Herve Nina M.D. First contact with patient: 16:25 Chief Complaint: ILLNESS Stated Complaint: LIGHT HEADED,DIZZY,UPSET STOMACH,OVER HEATING History of Present Illness The patient is a 22 year old male who presents to the Emergency Room with complaints of constant illness that onset two days ago. The patient notes that he passed out at work 2 days ago. He states that he had a fever of 101 that he measured yesterday. He notes that he "feels cold on the outside, but hot on the inside". The patient complains of diaphoresis, chills, nausea, diarrhea, syncope , right upper quadrant pain, chest pain, back pain, and fever. The patient denies coughing. The patient notes that his recent blood work at [place] showed that he had elevated hemoglobin, hematocrit, lymphocytes, and white blood cell count. Source of History: patient Onset: 2 days ago Position: head, abdomen (RUQ) Timing: constant Associated Symptoms: + fevers, + chills, + diaphoresis, + chest pain, + nausea, + back pain, + diarrhea, No cough Note: The patient complains of syncope. Review of Systems See HPI for pertinent positives and negatives. A total of ten systems were reviewed and were otherwise negative. 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 Surgical Problems: (1) Liver Transplant Status Family History Unobtainable family history due to adoption Social History Smoking Status: Former Smoker Alcohol Use: none Drug Use: none Marital Status: single Housing Status: lives with family Occupation Status: employed Current/Historical Medications Scheduled Aspirin (Aspirin Ec), 81 MG PO QAM Escitalopram Oxalate (Lexapro), 20 MG PO DAILY Lactobacillus Acidophilus (Lactinex), 1 TAB PO TIDM Pregabalin (Lyrica), 100 MG PO BID Tacrolimus (Prograf), 2 MG PO BID Tamsulosin HCl (Tamsulosin HCl), 0.4 MG PO HS Scheduled PRN Bismuth Subsalicylate (Pepto-Bismol Susp), 15 ML PO Q6H PRN for Indigestion Cetirizine (Zyrtec), 10 MG PO QAM PRN for Seasonal Allergies Clonazepam (Klonopin), 0.5 MG PO BID PRN for Anxiety Famotidine (Pepcid), 20 MG PO BID PRN for heartburn Ibuprofen (Ibuprofen), 400 MG PO BID PRN for Pain Ondansetron (Ondansetron HCl), 4 MG PO Q6H PRN for Nausea Oxycodone HCl (Oxycodone HCl), 5 MG PO Q6H PRN for Pain Triamcinolone Acet (Aristocort 0.1%), 1 APPLN TOP BID PRN for Itching Allergies Coded Allergies: Penicillins (Verified Allergy, Unknown, ., 03/22/18) Midazolam (Verified Adverse Reaction, Intermediate, "PARANOIA", 03/22/18) Acetaminophen (Verified Adverse Reaction, Unknown, "AFFECTS MY LIVER", 03/22) Physical Exam Vital Signs Date Time Temp Pulse Resp B/P (MAP) Pulse Ox O2 Delivery O2 Flow Rate FiO2 03/22/18 18:58 72 18 115/72 98 03/22/18 17:47 85 03/22/18 17:35 94 Room Air 03/22/18 16:18 36.9 83 16 122/90 94 Room Air Physical Exam GENERAL: Awake, alert, well-appearing, in no distress HENT: Normocephalic, atraumatic. Oropharynx unremarkable. EYES: Normal conjunctiva. Sclera non-icteric. NECK: Supple. No nuchal rigidity. RESPIRATORY: Clear to auscultation. No wheezes. Normal respiratory effort. CARDIAC: Normal rate. Normal rhythm. Extremities warm and well perfused. GI: Soft, non-distended. Slight RUQ tenderness to palpation. No rebound or guarding. No masses. RECTAL: Deferred. MUSCULOSKELETAL: Atraumatic. Very mild right lower costal pain. LOWER EXTREMITIES: Calves are equal size bilaterally and non-tender. No edema NEURO: Normal sensorium. No sensory or motor deficits noted. No facial droop. SKIN: Warm and dry. No rash or jaundice noted. Medical Decision & Procedures Laboratory Results 03/22/18 17:30 Red Blood Count 6.05, Mean Corpuscular Volume 80.5, Mean Corpuscular Hemoglobin 28.9, Mean Corpuscular Hemoglobin Concent 35.9, Mean Platelet Volume 10.4, Neutrophils (%) (Auto) 71.0, Lymphocytes (%) (Auto) 19.1, Monocytes (%) (Auto) 7.8, Eosinophils (%) (Auto) 1.6, Basophils (%) (Auto) 0.2, Neutrophils # (Auto) 8.16, Lymphocytes # (Auto) 2.20, Monocytes # (Auto) 0.90, Eosinophils # (Auto) 0.18, Basophils # (Auto) 0.02 03/22/18 17:30 Test 03/22/18 17:30 03/22/18 17:45 White Blood Count 11.50 K/uL (4.8-10.8) Red Blood Count 6.05 M/uL (4.7-6.1) Hemoglobin 17.5 g/dL (14.0-18.0) Hematocrit 48.7 % (42-52) Mean Corpuscular Volume 80.5 fL (80-100) Mean Corpuscular Hemoglobin 28.9 pg (25-34) Mean Corpuscular Hemoglobin Concent 35.9 g/dl (32-36) Platelet Count 184 K/uL (130-400) Mean Platelet Volume 10.4 fL (7.4-10.4) Neutrophils (%) (Auto) 71.0 % Lymphocytes (%) (Auto) 19.1 % Monocytes (%) (Auto) 7.8 % Eosinophils (%) (Auto) 1.6 % Basophils (%) (Auto) 0.2 % Neutrophils # (Auto) 8.16 K/uL (1.4-6.5) Lymphocytes # (Auto) 2.20 K/uL (1.2-3.4) Monocytes # (Auto) 0.90 K/uL (0.11-0.59) Eosinophils # (Auto) 0.18 K/uL (0-0.5) Basophils # (Auto) 0.02 K/uL (0-0.2) RDW Standard Deviation 38.9 fL (36.4-46.3) RDW Coefficient of Variation 13.5 % (11.5-14.5) Immature Granulocyte % (Auto) 0.3 % Immature Granulocyte # (Auto) 0.04 K/uL (0.00-0.02) Anion Gap 9.0 mmol/L (3-11) Est Creatinine Clear Calc Drug Dose 100.5 ml/min Estimated GFR () 113.3 Estimated GFR (Non- 97.8 BUN/Creatinine Ratio 17.9 (10-20) Calcium Level 9.1 mg/dl (8.5-10.1) Total Bilirubin 0.9 mg/dl (0.2-1) Direct Bilirubin 0.2 mg/dl (0-0.2) Aspartate Amino Transf (AST/SGOT) 26 U/L (15-37) Alanine Aminotransferase (ALT/SGPT) 46 U/L (12-78) Alkaline Phosphatase 102 U/L (45-117) Total Protein 7.3 gm/dl (6.4-8.2) Albumin 4.0 gm/dl (3.4-5.0) Lipase 784 U/L (73-393) Urine Color YELLOW Urine Appearance CLEAR (CLEAR) Urine pH 6.5 (4.5-7.5) Urine Specific [place] 1.013 (1.000-1.030) Urine Protein NEG (NEG) Urine Glucose (UA) NEG (NEG) Urine Ketones NEG (NEG) Urine Occult Blood NEG (NEG) Urine Nitrite NEG (NEG) Urine Bilirubin NEG (NEG) Urine Urobilinogen NEG (NEG) Urine Leukocyte Esterase NEG (NEG) Laboratory results reviewed by me Medications Administered Medications (Trade) Dose Ordered Sig/Timi Route Start Time Stop Time Status Last Admin Dose Admin Sodium Chloride 1,000 ml @ 999 mls/hr Q1H1M ONCE IV 03/22/18 16:34 03/22/18 17:34 DC 03/22/18 17:43 999 MLS/HR Ondansetron HCl (Zofran Inj) 4 mg NOW STAT IV 03/22/18 16:34 03/22/18 16:38 DC 03/22/18 17:44 4 MG Oxycodone HCl (Roxicodone Immediate Rel Tab) 5 mg NOW STAT PO 03/22/18 17:49 03/22/18 17:51 DC 03/22/18 18:00 5 MG ECG Per My Interpretation Indication: syncope Rate (beats per minute): 77 Rhythm: normal sinus Findings: no ectopy, other (Right axis change, early repolarization change, ) Change: no significant change Change: No significant change from 03/09/2018. ED Course 1627: The patient was evaluated in room A3. A complete history and physical exam was performed. 1634: Ordered Zofran Inj 4 mg IV, Sodium Chloride 1,000 ml @ 999 mls/hr IV. 1749: Ordered Oxycodone HCl 5 mg PO. 1835: I reevaluated the patient. Discussed results and discharge instructions: he verbalized understanding and agreement. The patient is ready for discharge. Medical Decision Differential diagnosis: Etiologies such as vasovagal event, infection, hypoglycemia, electrolyte abnormalities, cardiac sources, intracerebral event, toxicologic, neurologic, as well as others were entertained. Patient presents with report of syncope several days ago saw his PCP yesterday but did not bring it up. States that overnight he felt some chills and weakness and feels warm. Reports yesterday of fever states she just does not feel quite right. Has been seen here several times in the past several months and had sepsis at the beginning of February. He is a liver transplant patient on tacro. Situs inversus as well. Well-appearing. No tachycardia or fever now. Does not appear grossly septic. Laboratory studies were completed including workup for possible metabolic or infectious etiologies. These are unremarkable. Fluid rehydrated. As chronic right-sided chest pain and has been referred to pain management for this. Offered Tylenol & Toradol which he declined. Recently started on Lyrica. 1 dose of oxycodone was given. No prescription for this given. This time patient does not appear septic or grossly infected. Syncope may be related heat and work but feel that he is stable at this point for continued outpatient follow-up. Medication Reconcilliation Current Medication List: was personally reviewed by me Blood Pressure Screening Patient's blood pressure: Normal blood pressure Impression Primary Impression: Syncope Additional Impression: Weakness Scribe Attestation The scribe's documentation has been prepared under my direction and personally reviewed by me in its entirety. I confirm that the note above accurately reflects all work, treatment, procedures, and medical decision making performed by me. Departure Information Dispostion Home / Self-Care Referrals Que Davila MD (PCP) Forms HOME CARE DOCUMENTATION FORM, IMPORTANT VISIT INFORMATION, WORK / SCHOOL INSTRUCTIONS Patient Instructions My [facility] Additional Instructions Please continue weight hydration and eat regular meals. No significant evidence of any systemic infection at this time. Would continue to maintain close contact with your outpatient physicians and continue to follow up with them in the next 2-3 days. Please be careful to avoid any falls if you feel unsteady or faint sit down. If at any time you have concerns or new symptoms you can always return here for reevaluation. Problem Qualifiers Primary Impression: Syncope Syncope type: unspecified Qualified Codes: R55 - Syncope and collapse
== END 2018-03-22 19:03 | disposition home or self-care (01) ==
LOC: C.EDB 15:57 → C.EDA 19:03
DX: R55 Syncope and collapse (principal); R53.1 Weakness; F32.9 Major depressive disorder, single episode, unspecified; D75.1 Secondary polycythemia; Z94.0 Kidney transplant status; Z88.0 Allergy status to penicillin; Z88.6 Allergy status to analgesic agent; Z88.8 Allergy status to other drugs, medicaments and biological substances; Z79.82 Long term (current) use of aspirin; Z79.899 Other long term (current) drug therapy

== ENCOUNTER 2018-03-26 12:00 | Emergency (ER) | payer OTHER ==
[~2018-03-26] VITALS: Ht 170.2 cm; Wt 78.7 kg
[~2018-03-26 12:00] MED LIST changes: +ESCI1TAB10 PO; +FAMO20TA11 PO; +LCTX PO; -LXP10 PO
[2018-03-26 12:12] VITALS: Ht 170.2 cm; Wt 78.7 kg
[2018-03-26] MEDS ORDERED: KETOROLAC TROMETHAMINE 30 MG/ML VIAL IV STA (13:14)
[2018-03-26] MEDS ORDERED: SODIUM CHLORIDE 0.9% 1000ML 2,000 ML IV STA (13:14)
[2018-03-26] MEDS ORDERED: ONDANSETRON INJ 2 MG/ML 2 ML VIAL IV STA (13:14)
[2018-03-26] MEDS ORDERED: OPTIRAY 320 IV PRN (13:30)
[2018-03-26] MEDS ORDERED: ALBUT/IPRATROP 3MG/0.5MG NEB 3 ML VIAL INH STA (13:56)
[2018-03-26 13:58] LABS: BASO % 0.2 %; BASO ABS # 0.02 K/uL (0-0.2); EOS % 2.6 %; EOS ABS # 0.21 K/uL (0-0.5); HEMOGLOBIN 17.4 g/dL (14.0-18.0); IG# 0.01 K/uL (0.00-0.02); LYMPH % 11.5 %; LYMPH ABS # 0.93 K/uL (1.2-3.4); MEAN CELL VOLUME 80.1 fL (80-100); MEAN CORPUSCULAR HGB CONC 36.3 g/dl (32-36); MEAN PLATELET VOLUME 10.5 fL (7.4-10.4); MONO % 8.4 %; MONO ABS # 0.68 K/uL (0.11-0.59); NEUT % 77.2 %; NEUT ABS # 6.21 K/uL (1.4-6.5); PLATELET COUNT 185 K/uL (130-400); RED CELL DISTRIBUTION WIDTH CV 13.7 % (11.5-14.5); RED CELL DISTRIBUTION WIDTH SD 39.5 fL (36.4-46.3); WHITE BLOOD COUNT 8.06 K/uL (4.8-10.8)
[2018-03-26 14:23] LABS: ALBUMIN 3.9 gm/dl (3.4-5.0); CALCIUM 9.3 mg/dl (8.5-10.1); CREATININE 0.89 mg/dl (0.60-1.40); POTASSIUM 3.9 mmol/L (3.5-5.1); TOTAL PROTEIN 7.6 gm/dl (6.4-8.2)
[2018-03-26 14:29] LABS: INFLUENZA B ANTIGEN Neg for Influ B (NEG)
--- NOTE | 2018-03-26 14:37 | EMERGENCY ROOM VISIT NOTE ---
ED Visit Note First contact with patient: 13:01 CHIEF COMPLAINT: Fatigue/weakness, diarrhea, abdominal pain, dehydration HISTORY OF PRESENTING ILLNESS: This is a 22-year-old male with a history of liver transplant at age 6 months on tacrolimus, situs in situ, depression, and drug-seeking behavior, who presents to the emergency department with complaint of fatigue and feeling weak, diarrhea, abdominal pain and dehydration. He states he has been sick for several weeks, and has never gotten back to normal. He states that he was admitted at [facility] in [place] for sepsis 3 weeks ago and was on several IV antibiotics, but he does not know what the source of his infection was. He states that he has been feeling worse and worse over the past several days, having associated chills and sweats. He states he is so tired that it feels hard to breathe. He complains of headaches and body aches that come and go as well. He reports that his abdominal pain is constant, crampy and diffuse. He rates all of his pain as 9/10. He has not taken any medication for the pain. He states he cannot take Tylenol because of his liver transplant. REVIEW OF SYSTEMS: A complete 10 point review of systems was reviewed with the patient with pertinent positives and negatives as per history of present illness. All else were negative. PAST MEDICAL HISTORY: Reviewed in chart, see problem list below. SOCIAL HISTORY: Lives at home. He denies tobacco use, he denies alcohol use. ALLERGIES: Reviewed in chart, see below. PHYSICAL EXAM: CONSTITUTIONAL: Pleasant and cooperative. No acute distress, but appears uncomfortable and in pain. No pallor or jaundice. Moderately dehydrated. HEENT: Normocephalic, atraumatic. Pupils equal, round and reactive to light, EOMI. Sclera are icteric. TMs normal. Pharynx normal. Dry mucus membranes. NECK: Supple, full active range of motion without discomfort. No cervical adenopathy. No nuchal rigidity or meningismus. RESPIRATORY: Diminished in bases, but otherwise clear to auscultation bilaterally with no wheezing, crackles, rhonchi or stridor. Equal expansion bilaterally. CARDIOVASCULAR: Regular rate and rhythm with no murmurs, rubs or gallops. Normal peripheral perfusion. No edema. GASTROINTESTINAL: Diffusely tender throughout the abdomen, most tender in the epigastric and upper quadrants, no rebound tenderness or guarding. Soft and nondistended. No palpable masses or HSM. Bowel sounds present in all quadrants. No CVAT bilaterally. MUSCULOSKELETAL: Full range of motion of all joints without discomfort. INTEGUMENTARY: No rash or other significant dermatologic conditions noted. NEUROLOGIC: Alert and oriented X 4 with normal affect. Cranial nerves II-XII grossly intact, no facial droop. No pronator drift. No focal neurologic deficits noted. Normal strength and sensation in all four extremities. Normal speech. Normal gait observed. No clonus or tremors. ED COURSE AND MEDICAL DECISION MAKING: CC: Patient presenting with complaint of fatigue/weakness, diarrhea, abdominal pain, dehydration DIFFERENTIAL DIAGNOSIS: Includes, but not limited to viral gastroenteritis, food poisoning, colitis, C. difficile infection, appendicitis, choledocholithiasis, pancreatitis, cholangitis, hepatitis, liver transplant rejection, hepatic portal vein thrombosis, dehydration, electrolyte abnormality , anemia, sepsis/bacteremia, among others. INTERPRETATION OF LABS: No leukocytosis, no anemia, normal platelets, no significant electrolyte abnormalities, normal renal function, significantly elevated T bili and liver enzymes when compared to previous labs. Normal lipase. Lactic acid within normal limits. Coagulation factors within normal limits. Negative influenza A/B. Negative Lyme. IMAGING: CHEST ONE VIEW PORTABLE CLINICAL HISTORY: Evaluate Fever/Sepsis dyspnea COMPARISON STUDY: 03/06/2018 FINDINGS: Situs inversus. Lungs are clear. Diaphragms smooth. Calcific angles are sharp. IMPRESSION: Situs inversus No acute process. ----- CT SCAN OF THE ABDOMEN AND PELVIS WITH IV CONTRAST CLINICAL HISTORY: Generalized abdominal pain. Diarrhea. COMPARISON STUDY: Abdominal CT dated 03/09/2018. TECHNIQUE: Following the IV administration of 95 cc of Optiray 320, CT scan of the abdomen and pelvis is performed from the lung bases to the proximal femora. Images are reviewed in the axial, sagittal, and coronal planes. IV contrast was administered without complication. A dose lowering technique was utilized adhering to the principles of ALARA. CT DOSE: 317.10 mGy.cm FINDINGS: Lung bases: Dextrocardia is noted. The heart is normal in size and without pericardial effusion. The lung bases are clear. Liver: There is situs inversus. The liver transplant is identified in the left upper quadrant. The contrast-enhanced liver is normal in size, contour, and attenuation. There is no intrahepatic biliary ductal dilatation. The hepatic veins and portal veins are patent. Gallbladder: Surgically absent. Spleen: The spleen is located in the right upper quadrant. The spleen is top normal in size and normal in attenuation. Pancreas: Unremarkable. Adrenal glands: Unremarkable. Kidneys: The contrast enhanced kidneys are normal in size and without hydronephrosis. The kidneys enhance symmetrically. Scattered subcentimeter cortical hypodensities likely represent cysts but are too small for definitive characterization. Abdominal vasculature: The abdominal aorta is normal in course and caliber. 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 The colon is located entirely within the right abdomen, and the small bowel loops are present on the left. No bowel obstruction is seen. The appendix is not identified. Peritoneum: There is no intraperitoneal free air or abdominal ascites. There is a small fat-containing umbilical hernia. Lymphadenopathy: None. Pelvic viscera: The bladder, prostate, and seminal vesicles are normal as visualized. Skeletal structures: No lytic or blastic lesions are seen. There are bilateral pars defects at L5. IMPRESSION: 1. There are no acute infectious or inflammatory findings in the abdomen or pelvis. 2. 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 3. Additional findings as above. ----- DOPPLER ULTRASOUND OF THE HEPATIC VESSELS CLINICAL HISTORY: Abdominal pain. Liver transplant. Situs inversus. COMPARISON STUDY: Doppler ultrasound of the hepatic vessels August 13, [address] of the abdomen and pelvis March 26, 2018. FINDINGS: The portal veins are patent with appropriately directed flow. This may reflect a left lobe liver transplant. No hepatic lesions are identified. The hepatic veins are patent. Resistive indices within the hepatic arteries are within normal limits. There is no ascites. IMPRESSION: Patent transplant vessels with appropriately directed flow. MEDICATION RECONCILIATION: I attest that I have personally reviewed the patient 's current medication list. INITIAL VITAL SIGNS REVIEW: I reviewed the patient's initial vital signs and interpret them as follows: T: Afebrile; BP: Normotensive; HR: Mildly tachycardia; RR: Within normal limits; Pulse Ox: Within normal limits on room air. Blood pressure screening: The patient was found to have normal blood pressure on screening and does not require follow-up for repeat blood pressure check. SUMMARY: Patient was evaluated at bedside, history and physical exam performed. Patient is alert and oriented, in no acute distress, but does appear uncomfortable and in pain, resting in the stretcher. Patient does appear to be moderately dehydrated and is mildly tachycardic, but is not febrile. Patient has diffuse abdominal tenderness throughout on exam, most tender in the epigastric and bilateral upper quadrants. No acute abdomen. Patient noted to have scleral icterus, no overt jaundice of the skin. Orders were placed at bedside for labs, UA, lactic acid, blood cultures 2, IV fluid bolus for hydration, IV Toradol and IV morphine for pain, IV Zofran for nausea, chest x-ray, CT abdomen/pelvis with IV contrast to evaluate for abdominal pain. Patient discussed with Dr. Piedra, who agrees with my assessment and plan. Labs and imaging reviewed as above, notable for acute elevation of T bili and liver enzymes. Ultrasound duplex of the hepatic portal veins was ordered, this was reviewed and is unremarkable. Review of the patient's chart, noting multiple previous visits for similar symptoms, and noting that his tacrolimus level has been subtherapeutic on most of these visits. In the setting of acute elevation of liver function testing, I am concerned for liver transplant rejection. I spoke on the phone with Dr. Holley, internal medicine at [facility] in [place], who agrees to accept the patient is a transfer. Dr. Singh with transplant surgery at [facility] also agrees to consult on the patient. Patient reassessed multiple times throughout ED stay, he has remained stable, but has required multiple doses of IV and oral pain medication with poor control of his pain. Patient was updated on all results and plan for transfer, he verbalized understanding and was agreeable to this plan. Patient was stable at time of transfer. Problem List Medical Problems: (1) Acute liver failure Status: Resolved (2) ADHD (attention deficit hyperactivity disorder) Status: Chronic (3) Depression Status: Chronic (4) GERD (gastroesophageal reflux disease) Status: Chronic (5) History of biliary atresia Status: Chronic (6) Liver Transplant Status Status: Chronic (7) Polycythemia Status: Chronic (8) Situs Inversus Status: Chronic (9) Situs Inversus Status: Chronic Surgical Problems: (1) Liver Transplant Status Status: Resolved Current/Historical Medications Scheduled Aspirin (Aspirin Ec), 81 MG PO QAM Escitalopram Oxalate (Lexapro), 20 MG PO DAILY Lactobacillus Acidophilus (Lactinex), 1 TAB PO TIDM Pregabalin (Lyrica), 100 MG PO BID Tacrolimus (Prograf), 2 MG PO BID Tamsulosin HCl (Tamsulosin HCl), 0.4 MG PO HS Scheduled PRN Bismuth Subsalicylate (Pepto-Bismol Susp), 15 ML PO Q6H PRN for Indigestion Cetirizine (Zyrtec), 10 MG PO QAM PRN for Seasonal Allergies Clonazepam (Klonopin), 0.5 MG PO BID PRN for Anxiety Famotidine (Pepcid), 20 MG PO BID PRN for heartburn Ibuprofen (Ibuprofen), 400 MG PO BID PRN for Pain Ondansetron (Ondansetron HCl), 4 MG PO Q6H PRN for Nausea Oxycodone HCl (Oxycodone HCl), 5 MG PO Q6H PRN for Pain Triamcinolone Acet (Aristocort 0.1%), 1 APPLN TOP BID PRN for Itching Allergies Coded Allergies: Penicillins (Verified Allergy, Unknown, ., 03/26/18) Midazolam (Verified Adverse Reaction, Intermediate, "PARANOIA", 03/26/18) Acetaminophen (Verified Adverse Reaction, Unknown, "AFFECTS MY LIVER", ) Vital Signs Date Time Temp Pulse Resp B/P (MAP) Pulse Ox O2 Delivery O2 Flow Rate FiO2 03/26/18 21:01 90 18 119/74 98 03/26/18 20:43 90 18 119/74 98 Room Air 03/26/18 19:32 36.9 97 18 126/75 98 Room Air 03/26/18 18:30 91 16 95 Room Air 03/26/18 18:08 90 03/26/18 17:28 78 111/74 03/26/18 15:31 93 16 117/77 100 Room Air 03/26/18 14:54 92 14 133/70 03/26/18 14:06 86 03/26/18 13:45 97 115/72 93 126/73 110 109/80 03/26/18 12:12 36.8 99 18 115/78 97 Room Air Laboratory Results 03/26/18 13:30 Red Blood Count 5.99, Mean Corpuscular Volume 80.1, Mean Corpuscular Hemoglobin 29.0, Mean Corpuscular Hemoglobin Concent 36.3, Mean Platelet Volume 10.5, Neutrophils (%) (Auto) 77.2, Lymphocytes (%) (Auto) 11.5, Monocytes (%) (Auto) 8.4, Eosinophils (%) (Auto) 2.6, Basophils (%) (Auto) 0.2, Neutrophils # (Auto) 6.21, Lymphocytes # (Auto) 0.93, Monocytes # (Auto) 0.68, Eosinophils # (Auto) 0.21, Basophils # (Auto) 0.02 03/26/18 13:30 Test 03/26/18 13:30 03/26/18 13:40 03/26/18 13:51 White Blood Count 8.06 K/uL (4.8-10.8) Red Blood Count 5.99 M/uL (4.7-6.1) Hemoglobin 17.4 g/dL (14.0-18.0) Hematocrit 48.0 % (42-52) Mean Corpuscular Volume 80.1 fL (80-100) Mean Corpuscular Hemoglobin 29.0 pg (25-34) Mean Corpuscular Hemoglobin Concent 36.3 g/dl (32-36) Platelet Count 185 K/uL (130-400) Mean Platelet Volume 10.5 fL (7.4-10.4) Neutrophils (%) (Auto) 77.2 % Lymphocytes (%) (Auto) 11.5 % Monocytes (%) (Auto) 8.4 % Eosinophils (%) (Auto) 2.6 % Basophils (%) (Auto) 0.2 % Neutrophils # (Auto) 6.21 K/uL (1.4-6.5) Lymphocytes # (Auto) 0.93 K/uL (1.2-3.4) Monocytes # (Auto) 0.68 K/uL (0.11-0.59) Eosinophils # (Auto) 0.21 K/uL (0-0.5) Basophils # (Auto) 0.02 K/uL (0-0.2) RDW Standard Deviation 39.5 fL (36.4-46.3) RDW Coefficient of Variation 13.7 % (11.5-14.5) Immature Granulocyte % (Auto) 0.1 % Immature Granulocyte # (Auto) 0.01 K/uL (0.00-0.02) Prothrombin Time 10.0 SECONDS (9.0-12.0) Prothromb Time International Ratio 1.0 (0.9-1.1) Activated Partial Thromboplast Time 25.0 SECONDS (21.0-31.0) Partial Thromboplastin Ratio 1.0 Anion Gap 8.0 mmol/L (3-11) Est Creatinine Clear Calc Drug Dose 119.7 ml/min Estimated GFR () 138.7 Estimated GFR (Non- 119.7 BUN/Creatinine Ratio 15.3 (10-20) Calcium Level 9.3 mg/dl (8.5-10.1) Total Bilirubin 3.2 mg/dl (0.2-1) Direct Bilirubin 2.0 mg/dl (0-0.2) Aspartate Amino Transf (AST/SGOT) 59 U/L (15-37) Alanine Aminotransferase (ALT/SGPT) 138 U/L (12-78) Alkaline Phosphatase 219 U/L (45-117) Total Protein 7.6 gm/dl (6.4-8.2) Albumin 3.9 gm/dl (3.4-5.0) Lipase 99 U/L (73-393) Lyme Disease IgG Antibody NEG (NEG) Lyme Disease IgM Antibody NEG (NEG) Influenza Type A Antigen Neg for Influ A (NEG) Influenza Type B Antigen Neg for Influ B (NEG) Bedside Lactic Acid Venous 1.03 mmol/L (0.90-1.70) Medications Administered Medications (Trade) Dose Ordered Sig/Timi Route Start Time Stop Time Status Last Admin Dose Admin Sodium Chloride 2,000 ml @ 999 mls/hr Q2H1M STAT IV 03/26/18 13:14 03/26/18 15:14 DC 03/26/18 13:14 999 MLS/HR Ondansetron HCl (Zofran Inj) 4 mg NOW STAT IV 03/26/18 13:14 03/26/18 13:23 DC 03/26/18 13:14 4 MG Ketorolac Tromethamine (Toradol Inj) 15 mg NOW STAT IV 03/26/18 13:14 03/26/18 13:23 DC 03/26/18 13:14 15 MG Albuterol/ Ipratropium (Duoneb) 3 ml NOW STAT INH 03/26/18 13:56 03/26/18 13:57 DC 03/26/18 13:56 3 ML Ciprofloxacin/ Dextrose (Cipro / D5W) 400 mg NOW STAT IV 03/26/18 14:59 03/26/18 15:01 DC 03/26/18 15:23 400 MG Metronidazole (Flagyl / Nss) 500 mg NOW STAT IV 03/26/18 14:59 03/26/18 15:01 DC 03/26/18 15:23 500 MG Morphine Sulfate (MoRPHine SULFATE INJ) 4 mg NOW STAT IV 03/26/18 15:37 03/26/18 15:38 DC 03/26/18 15:43 4 MG Oxycodone HCl (Roxicodone Immediate Rel Tab) 5 mg NOW STAT PO 03/26/18 16:57 03/26/18 16:58 DC 03/26/18 17:05 5 MG Morphine Sulfate (MoRPHine SULFATE INJ) 4 mg NOW STAT IV 03/26/18 18:22 03/26/18 18:23 DC 03/26/18 18:28 4 MG Sodium Chloride 1,000 ml @ 125 mls/hr Q8H STAT IV 03/26/18 18:30 03/26/18 21:30 DC 03/26/18 18:30 125 MLS/HR Morphine Sulfate (MoRPHine SULFATE INJ) 4 mg STK-MED ONCE .ROUTE 03/26/18 20:42 03/26/18 20:43 DC 03/26/18 20:47 4 MG Departure Information Impression Primary Impression: Elevated liver function tests Additional Impression: Abdominal pain Dispostion Transfer Acute Care Facility Condition [facility] Referrals Que Davila MD (PCP) Patient Instructions My [facility] Problem Qualifiers Additional Impression: Abdominal pain Abdominal location: generalized Qualified Codes: R10.84 - Generalized abdominal pain
--- NOTE | 2018-03-26 14:40 | DIAGNOSTIC IMAGING REPORT ---
CHEST ONE VIEW PORTABLE CLINICAL HISTORY: Evaluate Fever/Sepsis dyspnea COMPARISON STUDY: 03/06/2018 FINDINGS: Situs inversus. Lungs are clear. Diaphragms smooth. Calcific angles are sharp. IMPRESSION: Slight inversus No acute process. The above report was generated using voice recognition software. It may contain grammatical, syntax or spelling errors. Electronically signed by: Juan Luis Delgado M.D. 03/26/2018 2:38 PM Dictated Date/Time: 03/26/2018 2:37 PM
[2018-03-26] MEDS ORDERED: METRONIDAZOLE 500MG / 100ML NSS IV STA (14:59)
[2018-03-26] MEDS ORDERED: CIPROFLOXACIN 400MG / 200ML D5W IV STA (14:59)
--- NOTE | 2018-03-26 15:02 | DIAGNOSTIC IMAGING REPORT ---
CT SCAN OF THE ABDOMEN AND PELVIS WITH IV CONTRAST CLINICAL HISTORY: Generalized abdominal pain. Diarrhea. COMPARISON STUDY: Abdominal CT dated 03/09/2018. TECHNIQUE: Following the IV administration of 95 cc of Optiray 320, CT scan of the abdomen and pelvis is performed from the lung bases to the proximal femora. Images are reviewed in the axial, sagittal, and coronal planes. IV contrast was administered without complication. A dose lowering technique was utilized adhering to the principles of ALARA. CT DOSE: 317.10 mGy.cm FINDINGS: Lung bases: Dextrocardia is noted. The heart is normal in size and without pericardial effusion. The lung bases are clear. Liver: There is situs inversus. The liver transplant is identified in the left upper quadrant. The contrast-enhanced liver is normal in size, contour, and attenuation. There is no intrahepatic biliary ductal dilatation. The hepatic veins and portal veins are patent. Gallbladder: Surgically absent. Spleen: The spleen is located in the right upper quadrant. The spleen is top normal in size and normal in attenuation. Pancreas: Unremarkable. Adrenal glands: Unremarkable. Kidneys: The contrast enhanced kidneys are normal in size and without hydronephrosis. The kidneys enhance symmetrically. Scattered subcentimeter cortical hypodensities likely represent cysts but are too small for definitive characterization. Abdominal vasculature: The abdominal aorta is normal in course and caliber. 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 The colon is located entirely within the right abdomen, and the small bowel loops are present on the left. No bowel obstruction is seen. The appendix is not identified. Peritoneum: There is no intraperitoneal free air or abdominal ascites. There is a small fat-containing umbilical hernia. Lymphadenopathy: None. Pelvic viscera: The bladder, prostate, and seminal vesicles are normal as visualized. Skeletal structures: No lytic or blastic lesions are seen. There are bilateral pars defects at L5. IMPRESSION: 1. There are no acute infectious or inflammatory findings in the abdomen or pelvis. 2. 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 3. Additional findings as above. Electronically signed by: Ricki Zafar M.D. 03/26/2018 3:00 PM Dictated Date/Time: 03/26/2018 2:54 PM
[2018-03-26] MEDS ORDERED: MoRPHine SULFATE 4 MG/ML 1 ML CARP\\VIAL IV STA ×2 (15:37→18:22)
--- NOTE | 2018-03-26 16:47 | DIAGNOSTIC IMAGING REPORT ---
DOPPLER ULTRASOUND OF THE HEPATIC VESSELS CLINICAL HISTORY: Abdominal pain. Liver transplant. Situs inversus. COMPARISON STUDY: Doppler ultrasound of the hepatic vessels August 13, [address] of the abdomen and pelvis March 26, 2018. FINDINGS: The portal veins are patent with appropriately directed flow. This may reflect a left lobe liver transplant. No hepatic lesions are identified. The hepatic veins are patent. Resistive indices within the hepatic arteries are within normal limits. There is no ascites. IMPRESSION: Patent transplant vessels with appropriately directed flow. Electronically signed by: Byron Nicole M.D. 03/26/2018 4:45 PM Dictated Date/Time: 03/26/2018 4:40 PM
[2018-03-26] MEDS ORDERED: OXYCODONE HCL IR 5 MG TAB (IMMEDIATE RELEASE) PO STA (16:57)
[2018-03-26] MEDS ORDERED: SODIUM CHLORIDE 0.9% 1000ML 1,000 ML IV STA (18:30)
[2018-03-26 19:32] VITALS: TEMP 36.9
[2018-03-26] MEDS ORDERED: MoRPHine SULFATE 4 MG/ML 1 ML CARP\\VIAL ONE (20:42)
[2018-03-26 21:01] VITALS: BP 119/74; PULSE 90; O2SAT 98
[2018-03-30 13:31] LABS: FK506 TACROLIMUS HIGHLY SENS NEGATIVE <1 MCG/L (5-20)
== END 2018-03-26 20:55 | disposition short-term general hospital (02) ==
LOC: C.EDB 12:02 → C.EDC 20:55
DX: R79.89 Other specified abnormal findings of blood chemistry (principal); R10.84 Generalized abdominal pain; Z94.4 Liver transplant status; F32.9 Major depressive disorder, single episode, unspecified; Q89.3 Situs inversus; Z79.82 Long term (current) use of aspirin; Z79.899 Other long term (current) drug therapy; Z88.0 Allergy status to penicillin; Z88.8 Allergy status to other drugs, medicaments and biological substances

== ENCOUNTER 2018-04-09 16:41 | Emergency (ER) | payer OTHER ==
[~2018-04-09] VITALS: Ht 170.2 cm; Wt 82.1 kg
[~2018-04-09 16:41] MED LIST changes: -CETI10TA84 PO; -FLM4 PO; -LYR100 PO
[2018-04-09 16:44] VITALS: TEMP 36.9; Ht 170.2 cm; Wt 82.1 kg
[2018-04-09] MEDS ORDERED: PROMETHAZINE HCL INJ 25 MG/ML 1 ML VIAL IM STA (17:14)
[2018-04-09] MEDS ORDERED: SODIUM CHLORIDE 0.9% 1000ML 1,000 ML IV STA (17:14)
[2018-04-09] MEDS ORDERED: MoRPHine SULFATE 10 MG/ML CARP/VIAL IV STA (17:28)
[2018-04-09] MEDS ORDERED: LACTCHW3 PO (17:40)
[2018-04-09] MEDS ORDERED: MIRT15TA3 PO (17:40)
[2018-04-09] MEDS ORDERED: TACR1CAP3 PO (17:40)
[2018-04-09] MEDS ORDERED: ASPI-461 PO (17:40)
[2018-04-09] MEDS ORDERED: OXYC-90 PO (17:40)
[2018-04-09] MEDS ORDERED: OMEP20CA9 PO (17:40)
[2018-04-09] MEDS ORDERED: FAMO1TAB47 PO (17:40)
[2018-04-09] MEDS ORDERED: CETI10TA84 PO (18:10)
[2018-04-09 18:25] VITALS: O2SAT 96
--- NOTE | 2018-04-09 18:26 | EMERGENCY ROOM VISIT NOTE ---
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 The patient was recently admitted to [facility] in [place] for acute liver failure. At [place], he had a liver biopsy performed and they were trending his liver enzymes. Liver enzymes were trending down and he was discharged home with outpatient follow-up. The patient states for the past 2 days, his symptoms have been worsening. He did have similar symptoms while in the hospital, but they improved at discharge. He states for the past 2 days he has been experiencing nausea, dizziness, light sensitivity, headache, dyspnea, dysuria, constipation, and states he feels overall dehydrated. He denies any vomiting, chest pain, or urinary frequency. The patient also reports a rash on his chest and states "I feel like it having a allergic reaction. Patient describes the rash as red bumps which look like pimples, but states they are very itchy. He denies any hives. The left upper quadrant pain does radiate toward the back. The patient rates the pain as dull , but states on occasion it is sharp and shooting. He describes it as constant and rates 8/10. The patient is currently on Lyrica and oxycodone for pain without improvement in his symptoms. Review of Systems A complete 10 point review of systems was reviewed with the patient with pertinent positives and negatives as per history of present illness. All else were negative. Past Medical/Surgical History Medical Problems: (1) Acute liver failure (2) ADHD (attention deficit hyperactivity disorder) (3) Biliary atresia (4) Depression (5) GERD (gastroesophageal reflux disease) (6) History of biliary atresia (7) Liver Transplant Status (8) Polycythemia (9) Situs Inversus (10) Situs Inversus Surgical Problems: (1) Liver Transplant Status Family History Unobtainable family history due to adoption Social History Smoking Status: Never Smoker Smokeless Tobacco Use: No Alcohol Use: none Drug Use: none Marital Status: single Housing Status: lives with family Occupation Status: employed Current/Historical Medications Scheduled Aspirin (Aspirin), 81 MG PO QAM Lactobacillus (Lactinex), 1 TAB PO TIDM Mirtazapine (Remeron), 15 MG PO HS Omeprazole (Prilosec), 20 MG PO DAILY Pregabalin (Lyrica), 100 MG PO BID Tacrolimus (Tacrolimus), 2 MG PO BID Tamsulosin HCl (Tamsulosin HCl), 0.4 MG PO HS Scheduled PRN Bismuth Subsalicylate (Pepto-Bismol Susp), 15 ML PO Q6H PRN for Indigestion Cetirizine (Zyrtec), 10 MG PO QAM PRN for Seasonal Allergies Clonazepam (Klonopin), 0.5 MG PO BID PRN for Anxiety Famotidine (Famotidine), 20 MG PO BID PRN for Heartburn/GI Upset Ibuprofen (Ibuprofen), 400 MG PO BID PRN for Pain Ondansetron (Ondansetron HCl), 4 MG PO Q8 PRN for Nausea Oxycodone Ir (Roxicodone Ir), 5 MG PO Q6H PRN for Pain Physical Exam Vital Signs Date Time Temp Pulse Resp B/P (MAP) Pulse Ox O2 Delivery O2 Flow Rate FiO2 04/09/18 21:30 04/09/18 19:28 80 15 119/83 95 Room Air 04/09/18 18:26 89 22 105/70 96 Room Air 04/09/18 18:25 96 Room Air 04/09/18 18:21 94 04/09/18 16:57 96 Room Air 04/09/18 16:44 36.9 107 20 117/71 96 Room Air Physical Exam VITALS: Vitals are noted on the nurse's note and reviewed by myself. Vital signs stable. GENERAL: This is a 22-year-old white male, in no acute distress, nondiaphoretic , well-developed well-nourished. SKIN: Papular rash on the anterior chest wall. This is follicular in nature. No urticaria noted. The skin was otherwise without rashes, erythema, edema, or bruising. There is no tenting of the skin. Capillary reflex less than 2 seconds. HEAD: Normocephalic atraumatic. EARS: External auditory canals clear, tympanic membranes pearly khan without erythema or effusion bilaterally. EYES: Pupils equal round and reactive to light and accommodation. Conjunctivae without injection, sclerae without icterus. Extraocular movements intact. NOSE: Patent, turbinates without inflammation or discharge. No sinus tenderness. MOUTH: Mucous membranes moist. Tonsils are not enlarged. Pharynx without erythema or exudate. Uvula midline. Airway patent. Tongue does not deviate. NECK: Supple without nuchal rigidity. No lymphadenopathy. No thyromegaly. Cervical spine is nontender. No JVD. HEART: Regular rate and rhythm without murmurs gallops or rubs. LUNGS: Clear to auscultation bilaterally without wheezes, rales or rhonchi. No dullness to percussion. No retractions or accessory muscle use. ABDOMEN: Positive bowel sounds x 4. Normal tympanic percussion. Abdomen is distended. Significant left upper quadrant tenderness to palpation. Positive CVA tenderness on the left. No obvious masses or organomegaly. Ward sign negative. No guarding or rebound tenderness. MUSCULOSKELETAL: No muscle atrophy, erythema, or edema noted. Full range of motion without joint tenderness in all extremities. No tenderness to palpation. Normal gait. Strength 5/5 throughout. NEURO: Patient was alert and oriented to person place and time. Normal sensation to light and sharp touch. Deep tendon reflexes 2+ throughout. No focal neurological deficits. Medical Decision & Procedures ER Provider Diagnostic Interpretation: ABDOMEN LIMITED (US) HISTORY: 22 years-old Male LUQ pain, liver transplant, hx. situs inversus acute left upper quadrant abdominal pain in a patient with history of situs inversus COMPARISON: CT abdomen and pelvis 03/26/2018 TECHNIQUE: Multiple real-time sonographic images of the abdominal left upper quadrant were obtained assessing grayscale appearance and color flow. FINDINGS: Pancreas is suboptimally visualized with the imaged portions appearing unremarkable. Liver is unremarkable without intrahepatic biliary ductal dilation or focal mass. No upper abdominal ascites. Surgically absent gallbladder. Common bile duct not visualized. The imaged kidney within the abdominal left upper quadrant appears unremarkable. IMPRESSION: 1. Unremarkable sonographic appearance of the liver. 2. Surgically absent gallbladder. 3. No biliary ductal dilation identified. The above report was generated using voice recognition software. It may contain grammatical, syntax or spelling errors. Electronically signed by: Marvin Diaz M.D. 04/09/2018 7:45 PM Dictated Date/Time: 04/09/2018 7:42 PM (AMBROSIO/BLAD)RETROPERITON COMP HISTORY: 22 years-old Male left flank pain, dysuria acute left-sided flank pain with dysuria. History of situs inversus. COMPARISON: Upper abdominal ultrasound of same day, CT 03/26/2018 TECHNIQUE: Multiple real-time sonographic images of the kidneys and bladder were obtained assessing grayscale appearance and color flow. FINDINGS: Right kidney within the abdominal left upper quadrant measures 10.7 cm in length and demonstrates no renal calculi, hydronephrosis or suspicious mass lesions. Left kidney within the abdominal right upper quadrant measures 11.5 cm in length and is also within normal limits without renal calculi, hydronephrosis or suspicious mass lesions. Spleen is mildly enlarged, 13.4 cm. Mild degree of floating debris is seen within urinary bladder lumen. Bilateral ureteral jets are noted. IMPRESSION: 1. Unremarkable sonographic appearance of the bilateral kidneys without renal calculi or hydronephrosis. 2. Mild amount of debris within the urinary bladder lumen. Correlate with urinalysis. The above report was generated using voice recognition software. It may contain grammatical, syntax or spelling errors. Electronically signed by: Marvin Diaz M.D. 04/09/2018 7:41 PM Dictated Date/Time: 04/09/2018 7:38 PM CHEST 2 VIEWS ROUTINE CLINICAL HISTORY: Dyspnea. Weakness. COMPARISON STUDY: Chest radiograph March 26, 2018. FINDINGS: Situs inversus is again noted. Lung volumes are normal. There is no pneumothorax or pleural effusion. There is no consolidation or evidence for pulmonary edema. Appearance of the chest is unchanged. IMPRESSION: 1. No acute cardiopulmonary findings. 2. Situs inversus. Electronically signed by: Byron Nicole M.D. 04/09/2018 8:10 PM Dictated Date/Time: 04/09/2018 8:09 PM Laboratory Results 04/09/18 18:15 Red Blood Count 5.70, Mean Corpuscular Volume 81.8, Mean Corpuscular Hemoglobin 28.2, Mean Corpuscular Hemoglobin Concent 34.5, Mean Platelet Volume 10.9, Neutrophils (%) (Auto) 74.4, Lymphocytes (%) (Auto) 18.9, Monocytes (%) (Auto) 3.6, Eosinophils (%) (Auto) 1.3, Basophils (%) (Auto) 0.2, Neutrophils # (Auto) 8.12, Lymphocytes # (Auto) 2.06, Monocytes # (Auto) 0.39, Eosinophils # (Auto) 0.14, Basophils # (Auto) 0.02 04/09/18 18:15 Test 04/09/18 18:15 04/09/18 19:36 White Blood Count 10.91 K/uL (4.8-10.8) Red Blood Count 5.70 M/uL (4.7-6.1) Hemoglobin 16.1 g/dL (14.0-18.0) Hematocrit 46.6 % (42-52) Mean Corpuscular Volume 81.8 fL (80-100) Mean Corpuscular Hemoglobin 28.2 pg (25-34) Mean Corpuscular Hemoglobin Concent 34.5 g/dl (32-36) Platelet Count 230 K/uL (130-400) Mean Platelet Volume 10.9 fL (7.4-10.4) Neutrophils (%) (Auto) 74.4 % Lymphocytes (%) (Auto) 18.9 % Monocytes (%) (Auto) 3.6 % Eosinophils (%) (Auto) 1.3 % Basophils (%) (Auto) 0.2 % Neutrophils # (Auto) 8.12 K/uL (1.4-6.5) Lymphocytes # (Auto) 2.06 K/uL (1.2-3.4) Monocytes # (Auto) 0.39 K/uL (0.11-0.59) Eosinophils # (Auto) 0.14 K/uL (0-0.5) Basophils # (Auto) 0.02 K/uL (0-0.2) RDW Standard Deviation 38.7 fL (36.4-46.3) RDW Coefficient of Variation 13.1 % (11.5-14.5) Immature Granulocyte % (Auto) 1.6 % Immature Granulocyte # (Auto) 0.18 K/uL (0.00-0.02) Prothrombin Time 9.6 SECONDS (9.0-12.0) Prothromb Time International Ratio 0.9 (0.9-1.1) Activated Partial Thromboplast Time 24.5 SECONDS (21.0-31.0) Partial Thromboplastin Ratio 0.9 Anion Gap 6.0 mmol/L (3-11) Est Creatinine Clear Calc Drug Dose 119.2 ml/min Estimated GFR () 124.6 Estimated GFR (Non- 107.5 BUN/Creatinine Ratio 15.0 (10-20) Calcium Level 9.0 mg/dl (8.5-10.1) Total Bilirubin 0.7 mg/dl (0.2-1) Aspartate Amino Transf (AST/SGOT) 57 U/L (15-37) Alanine Aminotransferase (ALT/SGPT) 170 U/L (12-78) Alkaline Phosphatase 195 U/L (45-117) Total Protein 6.9 gm/dl (6.4-8.2) Albumin 3.4 gm/dl (3.4-5.0) Globulin 3.5 gm/dl (2.5-4.0) Albumin/Globulin Ratio 1.0 (0.9-2) Lipase 114 U/L (73-393) Urine Color YELLOW Urine Appearance CLEAR (CLEAR) Urine pH 7.0 (4.5-7.5) Urine Specific [place] 1.013 (1.000-1.030) Urine Protein NEG (NEG) Urine Glucose (UA) NEG (NEG) Urine Ketones NEG (NEG) Urine Occult Blood NEG (NEG) Urine Nitrite NEG (NEG) Urine Bilirubin NEG (NEG) Urine Urobilinogen NEG (NEG) Urine Leukocyte Esterase NEG (NEG) Urine Opiates Screen NEG (NEG) Urine Methadone, Qualitative NEG (NEG) Urine Barbiturates NEG (NEG) Urine Phencyclidine (PCP) Level NEG (NEG) Ur Amphetamine/Methamphetamine NEG (NEG) MDMA (Ecstasy) Screen NEG (NEG) Urine Benzodiazepines Screen NEG (NEG) Urine Cocaine Metabolite NEG (NEG) Urine Marijuana (THC) NEG (NEG) Medications Administered Medications (Trade) Dose Ordered Sig/Timi Route Start Time Stop Time Status Last Admin Dose Admin Sodium Chloride 1,000 ml @ 999 mls/hr Q1H1M STAT IV 04/09/18 17:14 04/09/18 18:14 DC 04/09/18 17:14 999 MLS/HR Promethazine HCl (Phenergan Inj) 25 mg NOW STAT IM 04/09/18 17:14 04/09/18 17:19 DC 04/09/18 17:14 25 MG Morphine Sulfate (MoRPHine SULFATE INJ) 8 mg NOW STAT IV 04/09/18 17:28 04/09/18 17:30 DC 04/09/18 17:28 8 MG Oxycodone HCl (Roxicodone Immediate Rel Tab) 5 mg NOW STAT PO 04/09/18 19:44 04/09/18 19:45 DC 04/09/18 19:44 5 MG ED Course The patient was seen and evaluated as above. IV access obtained, labs drawn. The patient was given normal saline solution, Phenergan, and morphine for his symptoms. Imaging performed and reviewed by myself and radiologist as above. Labs reviewed by myself. The patient complained of increased pain. He was given a dose of OxyIR p.o. I contacted the patient's crane engineer, Dr. Franco, at [facility]. See note regarding this conversation. I discussed the findings with the patient at bedside. I discussed the case with my attending. Discharge instructions reviewed, the patient was discharged home in good condition. 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 The patient did have a biopsy performed in [place] with focal findings of mild acute liver rejection. The patient's LFTs significantly improved while in [place] while being given his tacrolimus daily. His tacrolimus levels went from being undetectable to a normal range. The patient states that he has been taking his tacrolimus as well as his oxycodone and clonazepam regularly with no improvement in his pain or anxiety. Unfortunately, urine drug screen performed due to the patient's symptoms and history was completely negative for benzos as well as opiates. I suspect the patient is being noncompliant with these medications and question whether or not he is being completely compliant with his tacrolimus as well. Laboratory workup here in the emergency department did not reveal any significant leukocytosis, anemia, thrombocytopenia. Renal function and electrolytes were without significant abnormalities. Patient's AST was elevated at 57, ALT elevated at 170, alkaline phosphatase elevated at 195. These are slightly elevated from the patient's most recent lab work completed at [facility]. I did discuss these findings with the patient's crane engineer and he was not concerned. Lipase was negative. Coagulation factors normal. Urinalysis without signs of infection despite the patient's complaints of dysuria and findings of debris within the bladder on ultrasound. Tacrolimus level pending. I suspect the patient's symptoms are related to noncompliance with medications. I discussed with him that there is no acute findings to warrant admission or transfer. I also discussed the finding of negative urine drug screen with the patient at bedside. The patient becomes very agitated and states that he is certainly taking his medication and our testing is incorrect. He states I am accusing him of noncompliance despite his total compliance with all medications prescribed. Advised him that the lab testing is concerning for noncompliance, but advised him that he will need to discuss this with his chronic pain management provider. I discussed with the patient that I would not be providing him with any more opiates, mostly because he is under chronic pain management, but also because of the negative urine drug screen. The patient did make several comments throughout this conversation which lasted approximately 40 minutes, that if he gets cut off from his medications that he may have to "take matters into my own hands". 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 I advised the patient multiple times that if he is unhappy with his current treatment plan that he is certainly able to contact a different provider and schedule an appointment for a another opinion. The patient states he has not made any attempts to do this as his insurance requires him to have a referral. He states he feels that somebody else should make this appointment for him. I did speak with the renal case manager, Ailne, who is very familiar with the patient's case. She states the patient has many sources and resources through [facility] and has a long term care pharmacist through [facility] who contacts the patient almost daily. She was able to pull up these notes and able to see that there are not many attempts to reach the patient and help him coordinate his care and assist with the psychiatric component of his illness. She did contact the patient's long term care pharmacist to inform them of today's visit. When the patient made comments which were questionably suicidal to me in the emergency department, I did speak with the psychiatric caseworkers here in the ED. I was then notified by nursing staff that the patient eloped from the emergency department. He was seen near the ambulance entrance, and eventually found in front of the hospital. He had removed his IV himself, and states he is done and does not wish to stay any longer. I was unable to get the patient any discharge instructions, but did spend approximately 40 minutes at bedside discussing with the patient that he needs to continue to follow-up outpatient as has been previously established. Etiologies such as acute liver failure, chronic liver failure, transplant rejection, appendicitis, diverticulitis, obstruction, inflammatory bowel disease, renal colic, PUD, biliary pathology, pancreatitis, mesenteric ischemia , aortic pathology, infections, genitourinary, UTI, perforated viscus, as well as others were entertained. The chart was completed utilizing [employer] voice recognition software. Grammatical errors, random word insertions, pronoun errors, and incomplete sentences are an occasional consequence of this system due to software limitations, ambient noise, and hardware issues. Any formal questions or concerns about the content, text, or information contained within the body of this dictation should be directly addressed to the provider for clarification. Medication Reconcilliation Current Medication List: was personally reviewed by me Blood Pressure Screening Patient's blood pressure: Normal blood pressure Consults Consulting Physician: Dr. Franco - [facility] Physical Education Instructor Dr. Franco is very familiar with this patient. I advised him of the patient's elevated LFTs here in the emergency department, as he had recently been admitted to [facility] for acute liver failure and had a biopsy performed. I was advised that the patient has been chronically noncompliant with his immunosuppressive therapy. He is often off of his tacrolimus and noncompliant, however when he gets admitted and is getting the medications regularly, his tacrolimus levels, up and his LFTs go down. Many of his symptoms improved. He is unconcerned about the slight bump in the patient's LFTs here in the emergency department as well as the patient's symptoms. I did advise him of the negative urine drug screen with the patient's current prescriptions of clonazepam and OxyIR. He states he is not surprised due to the patient's history of noncompliance with other medications. He does not recommend admission or transfer at this time, but did recommend the patient continue his outpatient treatment plan. He states he will see the patient at his regularly scheduled appointment in the office next month. He was under the impression that many of the patient's complaints and concerns are psychiatric related. Impression Primary Impression: Elevated liver function tests Additional Impressions: Liver Transplant Status Dysuria Departure Information Dispostion Other (eloped) Condition FAIR Referrals Que Davila MD (PCP) Patient Instructions My [facility] Problem Qualifiers
[2018-04-09 18:46] LABS: ALBUMIN 3.4 gm/dl (3.4-5.0); CREATININE 0.98 mg/dl (0.60-1.40); INR 0.9 (0.9-1.1); POTASSIUM 5.1 mmol/L (3.5-5.1); PTT PATIENT 24.5 SECONDS (21.0-31.0); TOTAL PROTEIN 6.9 gm/dl (6.4-8.2)
[2018-04-09 18:53] LABS: BASO % 0.2 %; BASO ABS # 0.02 K/uL (0-0.2); EOS % 1.3 %; EOS ABS # 0.14 K/uL (0-0.5); HEMATOCRIT 46.6 % (42-52); HEMOGLOBIN 16.1 g/dL (14.0-18.0); IG# 0.18 K/uL (0.00-0.02); LYMPH % 18.9 %; LYMPH ABS # 2.06 K/uL (1.2-3.4); MEAN CELL VOLUME 81.8 fL (80-100); MEAN CORPUSCULAR HEMOGLOBIN 28.2 pg (25-34); MEAN CORPUSCULAR HGB CONC 34.5 g/dl (32-36); MEAN PLATELET VOLUME 10.9 fL (7.4-10.4); MONO % 3.6 %; MONO ABS # 0.39 K/uL (0.11-0.59); NEUT % 74.4 %; NEUT ABS # 8.12 K/uL (1.4-6.5); PLATELET COUNT 230 K/uL (130-400); RED CELL DISTRIBUTION WIDTH CV 13.1 % (11.5-14.5); RED CELL DISTRIBUTION WIDTH SD 38.7 fL (36.4-46.3); WHITE BLOOD COUNT 10.91 K/uL (4.8-10.8)
[2018-04-09 19:28] VITALS: BP 119/83; PULSE 80; O2SAT 95
--- NOTE | 2018-04-09 19:42 | DIAGNOSTIC IMAGING REPORT ---
(AMBROSIO/BLAD)RETROPERITON COMP HISTORY: 22 years-old Male left flank pain, dysuria acute left-sided flank pain with dysuria. History of situs inversus. COMPARISON: Upper abdominal ultrasound of same day, CT 03/26/2018 TECHNIQUE: Multiple real-time sonographic images of the kidneys and bladder were obtained assessing grayscale appearance and color flow. FINDINGS: Right kidney within the abdominal left upper quadrant measures 10.7 cm in length and demonstrates no renal calculi, hydronephrosis or suspicious mass lesions. Left kidney within the abdominal right upper quadrant measures 11.5 cm in length and is also within normal limits without renal calculi, hydronephrosis or suspicious mass lesions. Spleen is mildly enlarged, 13.4 cm. Mild degree of floating debris is seen within urinary bladder lumen. Bilateral ureteral jets are noted. IMPRESSION: 1. Unremarkable sonographic appearance of the bilateral kidneys without renal calculi or hydronephrosis. 2. Mild amount of debris within the urinary bladder lumen. Correlate with urinalysis. The above report was generated using voice recognition software. It may contain grammatical, syntax or spelling errors. Electronically signed by: Marvin Diaz M.D. 04/09/2018 7:41 PM Dictated Date/Time: 04/09/2018 7:38 PM
[2018-04-09] MEDS ORDERED: OXYCODONE HCL IR 5 MG TAB (IMMEDIATE RELEASE) PO STA (19:44)
--- NOTE | 2018-04-09 19:47 | DIAGNOSTIC IMAGING REPORT ---
ABDOMEN LIMITED (US) HISTORY: 22 years-old Male LUQ pain, liver transplant, hx. situs inversus acute left upper quadrant abdominal pain in a patient with history of situs inversus COMPARISON: CT abdomen and pelvis 03/26/2018 TECHNIQUE: Multiple real-time sonographic images of the abdominal left upper quadrant were obtained assessing grayscale appearance and color flow. FINDINGS: Pancreas is suboptimally visualized with the imaged portions appearing unremarkable. Liver is unremarkable without intrahepatic biliary ductal dilation or focal mass. No upper abdominal ascites. Surgically absent gallbladder. Common bile duct not visualized. The imaged kidney within the abdominal left upper quadrant appears unremarkable. IMPRESSION: 1. Unremarkable sonographic appearance of the liver. 2. Surgically absent gallbladder. 3. No biliary ductal dilation identified. The above report was generated using voice recognition software. It may contain grammatical, syntax or spelling errors. Electronically signed by: Marvin Diaz M.D. 04/09/2018 7:45 PM Dictated Date/Time: 04/09/2018 7:42 PM
--- NOTE | 2018-04-09 20:11 | DIAGNOSTIC IMAGING REPORT ---
CHEST 2 VIEWS ROUTINE CLINICAL HISTORY: Dyspnea. Weakness. COMPARISON STUDY: Chest radiograph March 26, 2018. FINDINGS: Situs inversus is again noted. Lung volumes are normal. There is no pneumothorax or pleural effusion. There is no consolidation or evidence for pulmonary edema. Appearance of the chest is unchanged. IMPRESSION: 1. No acute cardiopulmonary findings. 2. Situs inversus. Electronically signed by: Byron Nicole M.D. 04/09/2018 8:10 PM Dictated Date/Time: 04/09/2018 8:09 PM
[2018-04-09] MEDS ORDERED: FLM4 PO (21:06)
[2018-04-09] MEDS ORDERED: LYR100 PO (21:06)
[2018-04-12 08:18] LABS: FK506 TACROLIMUS HIGHLY SENS 23.6 MCG/L (5-20)
== END 2018-04-09 21:31 | disposition left against medical advice (07) ==
LOC: C.EDB 16:43
DX: Z94.4 Liver transplant status (principal); R30.0 Dysuria; K72.90 Hepatic failure, unspecified without coma; K21.9 Gastro-esophageal reflux disease without esophagitis; R21 Rash and other nonspecific skin eruption; Z79.891 Long term (current) use of opiate analgesic; Z79.82 Long term (current) use of aspirin; Z79.899 Other long term (current) drug therapy